=== PATIENT | female | born 1990 | race Caucasian/White ===

== ENCOUNTER 2021-10-12 16:14 | Outpatient (CLI) | payer OTHER, SELFPAY ==
--- NOTE | 2021-10-12 17:00 | CRLHL7_ITS ---
For Patients: As a result of the Century Cures Act, medical imaging exams and procedure reports are released immediately into your electronic medical record. You may view this report before your referring provider. If you have questions, please contact your health care provider. INDICATION: First trimester with spotting. TECHNIQUE: Ultrasound OB pelvis transvaginal. Real-time ibarra-scale imaging of the pelvis was performed. COMPARISON: None. FINDINGS: There is an intrauterine . An irregular gestational sac with a mean sac diameter of 2.2 cm corresponds to a 7 week 0 day gestational age and estimated date of delivery May 31, 2022. Yolk sac appears enlarged and abnormal. No fetus visualized. Large subchorionic hemorrhage is present. The ovaries are of normal size. There are no suspicious fluid collections noted in the cul-de-sac. IMPRESSION: Abnormal irregular gestational sac and enlarged abnormal yolk sac are present. No fetus visualized which should be apparent at this stage. Findings are consistent with an incomplete . There is also a relatively large subchorionic hemorrhage. Dictated by Bart De La Vega MD @ 10/12/2021 5:51:24 PM (Electronically Signed)
== END 2021-10-12 16:15 | disposition home or self-care (01) ==
LOC: US 16:18
PROVIDERS: Visit Provider Registered Nurse
DX: O20.9 Hemorrhage in early pregnancy, unspecified (principal); Z3A.01 Less than 8 weeks gestation of pregnancy
CPT/HCPCS: 76817

== ENCOUNTER 2021-10-12 18:40 | Outpatient (CLI) | payer OTHER, SELFPAY | END 2021-10-12 18:41 | disposition home or self-care (01) | LOC: NFLDREF 18:43 | PROVIDERS: Visit Provider Registered Nurse | DX: Z34.90 Encounter for supervision of normal pregnancy, unspecified, unspecified trimester (principal) | CPT/HCPCS: 84702 ==

== ENCOUNTER 2021-10-25 14:59 | Outpatient (CLI) | payer OTHER, SELFPAY ==
--- NOTE | 2021-10-25 15:00 | CRLHL7_ITS ---
For Patients: As a result of the Century Cures Act, medical imaging exams and procedure reports are released immediately into your electronic medical record. You may view this report before your referring provider. If you have questions, please contact your health care provider. INDICATION: First trimester . Abnormal ultrasound exam. TECHNIQUE: Ultrasound OB pelvis transvaginal. Real-time ibarra-scale imaging of the pelvis was performed. COMPARISON: 10/12/2021. FINDINGS: Again demonstrated is a large irregular gestational sac with a mean sac diameter of 25.7 cm which would correspond to a 7 week 4 day gestational age. No fetus visualized. There is an abnormal enlarged yolk sac. There is a persistent relatively large perigestational hemorrhage. The ovaries are of normal size. There are no suspicious fluid collections noted in the cul-de-sac. IMPRESSION: No significant changes from the prior exam. Again demonstrated is an irregular gestational sac with an abnormal enlarged yolk sac and relatively large subchorionic hemorrhage. No fetus visualized. No new abnormality. Dictated by Bart De La Vega MD @ 10/25/2021 4:45:38 PM (Electronically Signed)
== END 2021-10-25 15:00 | disposition home or self-care (01) ==
LOC: US 15:00
PROVIDERS: Visit Provider Registered Nurse
DX: Z34.91 Encounter for supervision of normal pregnancy, unspecified, first trimester (principal); Z3A.01 Less than 8 weeks gestation of pregnancy
CPT/HCPCS: 76817

== ENCOUNTER 2021-10-25 16:18 | Outpatient (CLI) | payer OTHER, SELFPAY | END 2021-10-25 16:19 | disposition home or self-care (01) | PROVIDERS: Visit Provider Physician Assistant | DX: O03.9 Complete or unspecified spontaneous abortion without complication (principal) | CPT/HCPCS: 84702 ==

== ENCOUNTER 2021-12-03 14:41 | Outpatient (CLI) | payer OTHER, SELFPAY | END 2021-12-03 14:42 | disposition home or self-care (01) | PROVIDERS: Visit Provider Registered Nurse | DX: O02.1 Missed abortion (principal) | CPT/HCPCS: 84702; 84704; 87624 ==

== ENCOUNTER 2021-12-10 08:31 | Outpatient (CLI) | payer OTHER, SELFPAY ==
[2021-12-10 14:51] LABS: HCG Quantitative* 103.04 mIU/mL
== END 2021-12-10 08:32 | disposition home or self-care (01) ==
LOC: LONREF 08:32
PROVIDERS: Visit Provider Registered Nurse
DX: O02.1 Missed abortion (principal)
CPT/HCPCS: 84702

== ENCOUNTER 2021-12-17 08:29 | Outpatient (CLI) | payer OTHER, SELFPAY ==
[2021-12-17 13:22] LABS: HCG Quantitative* 26.44 mIU/mL
== END 2021-12-17 08:30 | disposition home or self-care (01) ==
LOC: LONREF 08:30
PROVIDERS: Visit Provider Registered Nurse
DX: O02.1 Missed abortion (principal)
CPT/HCPCS: 84702

== ENCOUNTER 2022-07-05 08:13 | Outpatient (CLI) | payer OTHER, SELFPAY | END 2022-07-05 08:14 | disposition home or self-care (01) | LOC: NFLDREF 07-08 09:00 | PROVIDERS: PCP Registered Nurse; Referring Provider Registered Nurse; Visit Provider Registered Nurse | DX: Z87.59 Personal history of other complications of pregnancy, childbirth and the puerperium (principal) | CPT/HCPCS: 84702 ==

== ENCOUNTER 2022-07-07 08:15 | Outpatient (CLI) | payer OTHER, SELFPAY | END 2022-07-07 08:16 | disposition home or self-care (01) | LOC: NFLDREF 07-09 06:08 | PROVIDERS: PCP Registered Nurse; Referring Provider Registered Nurse; Visit Provider Registered Nurse | DX: Z87.59 Personal history of other complications of pregnancy, childbirth and the puerperium (principal) | CPT/HCPCS: 84702 ==

== ENCOUNTER 2022-11-01 08:01 | Outpatient (CLI) | payer OTHER, SELFPAY ==
--- NOTE | 2022-11-01 08:15 | CRLHL7_ITS ---
For Patients: As a result of the Century Cures Act, medical imaging exams and procedure reports are released immediately into your electronic medical record. You may view this report before your referring provider. If you have questions, please contact your health care provider. INDICATION: Evaluate anatomy. COMPARISON: None. TECHNIQUE: Real time ibarra scale imaging of the fetus was performed. FINDINGS: Sonographic imaging demonstrates a single living intrauterine gestation. Fetus demonstrates a regular cardiac rate of 154 beats per minute. Fetus has a breech orientation and longitudinal lie. The placenta lies anteriorly and posteriorly without evidence of placenta previa. Amniotic fluid volume appears normal. Single deepest vertical pocket: 5.8 cm. The cervix is closed and measures 5.4 cm in length. The composite ultrasound gestational age is calculated at 21 weeks 6 days with an estimated sonographic due date of March 08, 2023. The estimated weight is 491 grams which lies at the 97th percentile. The following biometric measurements were obtained: Biparietal diameter: 5.1 cm/21 weeks 4 days 71% Head circumference: 19 weeks 5 days cm/21 weeks 5 days 72% Abdominal circumference: 18.1 cm/22 weeks 6 days 93% Femur length: 3.7 cm/21 weeks 5 days 67% The HC/AC ratio measures: 1.08 range (1.06-1.23) On anatomic survey, there is a normal appearance of the cerebral ventricles, cisterna magna and cerebellum. The nose, lips, and facial profile appear normal. The cervical, thoracic and lumbar spine are well visualized and appear normal. There is a normal four-chamber heart view and the left and right ventricular outflow tracts appear normal. diaphragm, stomach, kidneys and bladder appear normal. There is a normal three-vessel cord. Questionable of velamentous cord insertion site. The four extremities appear normal. IMPRESSION: Normal OB ultrasound exam with concordance of clinical and sonographic dating. No intrinsic abnormalities noted on anatomic survey. Question velamentous cord insertion site. Dictated by Puneet Akins MD @ 11/02/2022 9:59:50 PM (Electronically Signed)
== END 2022-11-01 08:02 | disposition home or self-care (01) ==
LOC: US 08:02
PROVIDERS: Visit Provider Obstetrics & Gynecology
DX: Z34.92 Encounter for supervision of normal pregnancy, unspecified, second trimester (principal); Z3A.21 21 weeks gestation of pregnancy
CPT/HCPCS: 76805

== ENCOUNTER 2022-12-19 09:02 | Outpatient (CLI) | payer OTHER, SELFPAY ==
--- NOTE | 2022-12-19 09:15 | CRLHL7_ITS ---
For Patients: As a result of the Century Cures Act, medical imaging exams and procedure reports are released immediately into your electronic medical record. You may view this report before your referring provider. If you have questions, please contact your health care provider. INDICATION: Third trimester scan, evaluate growth. COMPARISON: 11/01/2022 TECHNIQUE: Real time ibarra scale imaging of the fetus was performed . FINDINGS: Sonographic imaging demonstrates a single living intrauterine gestation. Fetus demonstrates a regular cardiac rate of 179 beats per minute. Fetus has a transverse position, head maternal right. Cervix is closed measuring 4.3 cm. Placenta is posterior. The edge of the posterior placenta is located 3.3 cm from the internal cervical os. Umbilical cord insertion is normal into the central posterior placenta. An anterior accessory placental lobe is noted. Amniotic fluid volume appears normal and there is a single deepest vertical pocket: 4.2 cm. The estimated weight is 1402gm which lies at the 92nd %. On the prior OB ultrasound exam dated 11/01/2022 the estimated weight was at the 97th%. The HC/AC ratio measures 1.00 range (0.99-1.20). BPD 89th percentile. HC 47th percentile. AC 97th percentile. FL 45th percentile. IMPRESSION: Sonographic gestational age 29 weeks 2 days and sonographic due date 03/04/2023. Sonographic age 9 days ahead of the clinical age. Estimated weight 92nd percentile. Abdominal circumference 97th percentile. Posterior placenta without previa. Normal cord insertion into the posterior placenta. Anterior accessory placental lobe. Dictated by Darin Flynn MD @ 12/19/2022 10:47:16 AM (Electronically Signed)
== END 2022-12-19 09:03 | disposition home or self-care (01) ==
LOC: US 09:03
PROVIDERS: Visit Provider Obstetrics & Gynecology
DX: Z34.93 Encounter for supervision of normal pregnancy, unspecified, third trimester (principal); Z3A.29 29 weeks gestation of pregnancy
CPT/HCPCS: 76816; 76817; 86592

== ENCOUNTER 2023-02-14 08:17 | Outpatient (CLI) | payer OTHER, SELFPAY ==
--- NOTE | 2023-02-14 08:15 | CRLHL7_ITS ---
For Patients: As a result of the Century Cures Act, medical imaging exams and procedure reports are released immediately into your electronic medical record. You may view this report before your referring provider. If you have questions, please contact your health care provider. INDICATION: Third trimester scan, evaluate growth. COMPARISON: 12/19/2022 TECHNIQUE: Real time ibarra scale imaging of the fetus was performed. FINDINGS: Sonographic imaging demonstrates a single living intrauterine gestation. Fetus demonstrates a regular cardiac rate of 144 beats per minute. Fetus has a vertex position. The placenta lies anterior/posterior without evidence of placenta previa. Amniotic fluid volume appears normal and there is a single deepest vertical pocket: 7.6 cm. The estimated weight is 3505gm which lies at the greater than 97th %. On the prior OB ultrasound exam dated 12/19/2022 the estimated weight was at the 92nd%. BPD 43rd percentile. HC 34th percentile. AC greater than 97th percentile. FL 40th percentile. The HC/AC ratio measures 0.88 range (0.92-1.05). IMPRESSION: Sonographic gestational age 37 weeks 1 day and sonographic due date 03/06/2023. Sonographic age 8 days ahead of the clinical age. Estimated weight greater than 97th percentile. Abdominal circumference greater than 97th percentile. Dictated by Darin Flynn MD @ 02/16/2023 11:17:02 AM (Electronically Signed)
== END 2023-02-14 08:18 | disposition home or self-care (01) ==
LOC: US 08:17
PROVIDERS: Visit Provider Obstetrics & Gynecology
DX: O36.63X0 Maternal care for excessive fetal growth, third trimester, not applicable or unspecified (principal); Z3A.37 37 weeks gestation of pregnancy
CPT/HCPCS: 76816; 87081; 87653

== ENCOUNTER 2023-03-09 15:57 | Inpatient (IN) | payer OTHER, SELFPAY ==
[2023-03-09 16:06] VITALS: PULSE 85; O2SAT 98
[2023-03-09 16:07] VITALS: BP 128/86; PULSE 83
[2023-03-09 16:22] VITALS: BMI 30.9
--- NOTE | 2023-03-09 17:08 | P.LDBA_ITS ---
Subjective History of Present Illness Time Seen by Provider: 17:00 Narrative: HPI: Jackie is a 33-year-old 6 para 1041 who is being admitted for induction of labor for presumed macrosomia. She has had an uncomplicated . growth measurements on 02/14/2023 are listed below. Specific Issues/Plans G 6 P 1041 : Servando: this will be his 1st child. H&P 02/21 Dr. Villatoro Desires genetic screening. Considering 1st trimester screen: Normal, female!!! 1. History of miscarriage x 3 (2 of which were in 2021). No testing for cause. 2. Will need Pap smear. 3. Suspected macrosomia at 28 weeks: EFW 92%, AC 97%. * Repeat US at 36 weeks: 02/14/23, EFW 3505 g or 7# 12oz (>97%), SDP 7.6 cm, BDP 43%, HC 34%, AC >97%, FL 40%. * Consider induction of labor at 39-40 weeks gestation 4. anatomy ultrasound with possible velamentous cord insertion -growth ultrasound at 28 weeks: normal cord insertion but anterior accessory lobe 5. Small umbilical hernia COVID: Not vaccinated. Recommended. Declined. TDAP: 01/06/23 Flu: Declined. RSV: 01/16/23 OB - Problem Based A/P Additional Plan (1) macrosomia during : Status: Acute Plan 1. Admit for cervical ripening followed by induction of labor. 2. Cook catheter placed with 60 mL in both balloons. 3. Low-dose Pitocin at 3:00 a.m. on 03/10/2023. 4. Dr. Unique Villatoro will assume care at 7:00 a.m. on 03/10/2023 OB Exam Physical Exam Vital signs: Pulse BP Pulse Ox 83 128/86 98 03/09/23 16:07 03/09/23 16:07 03/09/23 16:06 Narrative: GENERAL APPEARANCE: Pleasant, , well-groomed woman in no acute distress. VITAL SIGNS: as noted in nursing notes HEAD: Normocephalic, atraumatic. THYROID: no masses, nodularity, tenderness or enlargement. LUNGS: Clear to auscultation bilaterally without wheezes, rales or rhonchi. HEART: Regular rate and rhythm with normal S1 and S2. No gallop, rub or murmur. ABDOMEN: Gravid. Soft, nontender, nondistended, with normal bowels sounds throughout. EFM: Baseline 130s. Moderate variability. Multiple accelerations. No decelerations. Reactive. Category 1. TOCO: Rare contractions. PRESENTATION: Vertex by Lucho's maneuvers and sterile vaginal exam. SVE: 1.5 cm/ 70 %/ -2/soft/posterior. Boyce score: 6 EXTREMITIES: No cyanosis, clubbing, or edema. No varicosities. NEUROLOGIC: Normal gait and balance. Normal deep tendon reflexes at bilateral patella 2+/2, equal without clonus. PSYCHIATRIC: alert and oriented x3. Normal speech pattern, eye contact and affect. SKIN: Warm, dry, and well perfused. Good turgor. No lesions, nodules or rashes. Cook catheter was placed with 60 mL of saline in both balloons. The patient tolerated this procedure well.
[2023-03-09] MEDS: hydrOXYzine pamoate 25 MG CAPSULE 100 MG PO (18:23)
[2023-03-09] MEDS: MORPHINE 10 MG/ML inj IM (18:23)
[2023-03-09 19:12] LABS: Basophils Absolute Auto 0.02 K/uL (0.00-0.30); Basophils Percent Auto 0.2 % (0.0-3.0); Eosinophils Absolute Auto 0.04 K/uL (0.00-0.50); Eosinophils Percent Auto 0.5 % (0.0-7.0); Hematocrit 33.4 % (33.0-51.0); Hemoglobin* 11.3 gm/dL (12.0-16.0); Immature Granulocytes Abs Auto 0.02 K/uL (0.00-0.30); Immature Granulocytes Pct Auto 0.2 %; Lymphocytes Percent Auto 15.8 % (20-44); Mean Corpuscular HGB Conc 34 gm/dL (32-36); Mean Corpuscular Hemoglobin 30 pg (26-34); Mean Corpuscular Volume 88 fL (80-100); Monocytes Percent Auto 7.9 % (0.0-11.0); Neutrophils Percent Auto 75.4 % (42.0-72.0); Platelet Count* 218 K/uL (140-440); RDW Coefficient of Variation % 13.1 % (11.5-15.5)
[2023-03-09 19:15] LABS: Slide Review Reflex No
[2023-03-09 20:14] VITALS: BP 137/78; PULSE 73
[2023-03-09 20:15] VITALS: RESP 16; TEMP 36.5
[2023-03-09 20:17] VITALS: BP 140/83; PULSE 69
[2023-03-09 23:36] VITALS: BP 135/74; PULSE 73; RESP 16; TEMP 37
[2023-03-10] VITALS (85 sets, daily range): BP systolic 104–151; BP diastolic 55–84; PULSE 64–128; RESP 16–20; TEMP 36.7–37.8; O2SAT 94–100
[2023-03-10] MEDS: LACTATED RINGERS 1000 ML 1,000 ML 125 ML IV ×2 (02:57→14:10)
[2023-03-10] MEDS: OXYTOCIN 30 unit/500 ML in NS 30 UNIT/500 ML BAG IVPB (03:02)
--- NOTE | 2023-03-10 07:40 | PM.OBPNL ---
Subjective Date Seen: 03/03/23 Narrative: Jackie is a 33-year-old I3X0-3-8-5 woman currently at 39 weeks, 3 days gestation here for elective induction of labor with suspected macrosomia noted on ultrasounds. Ob problem list: 1. History of miscarriage x 3 (2 of which were in 2021). No testing for cause. 2. Will need Pap smear. 3. Suspected macrosomia at 28 weeks: EFW 92%, AC 97%. Repeat US at 36 weeks: 02/14/23, EFW 3505 g or 7# 12oz (>97%), SDP 7.6 cm, BDP 43%, HC 34%, AC >97%, FL 40%. Consider induction of labor at 39-40 weeks gestation4. anatomy ultrasound with possible velamentous cord insertion -growth ultrasound at 28 weeks: normal cord insertion but anterior accessory lobe 5. Small umbilical hernia Thus far, she had placement of Cook catheter for cervical ripening overnight, followed by Pitocin for induction of labor. Her most recent cervical exam at 6:00 a.m. was 4 cm, 70%, -2 station. The contractions was worse prior to removal of the Cook catheter. At this point, she has just eaten breakfast, and is relatively comfortable. Objective Exam: General: Pleasant, no acute distress Vital Signs: Last Vital Signs Temp 98.7 F 03/10/23 04:56 Pulse 70 03/10/23 07:20 Resp 16 03/10/23 04:56 BP 129/76 03/10/23 07:20 Pulse Ox 98 03/09/23 16:06 blood pressure is currently 144/82 Contractions Monitor mode: External Contraction pattern: Irregular Pitocin Rate (mU/min): 7 Assessment Assessment: induction ongoing Status: Category l Heart Rate Baseline: 140 Screenplay Writer Variability: Moderate (6-25) Monitor Accelerations: Present Monitor Decelerations: None Tracing Comments: Category 1, as above Labor Progress: In latent labor according to last cervical exam. Maternal Status: Mild hypertension newly noted Plan Plan: Continues monitoring. Continue Pitocin induction of labor. She plans to do some walking, and contact me when she is ready to try rupture of membranes. HELLP labs will be collected given her newly elevated blood pressures.
[2023-03-10 08:34] LABS: Hematocrit 36.3 % (33.0-51.0); Hemoglobin* 12.2 gm/dL (12.0-16.0); Mean Corpuscular HGB Conc 34 gm/dL (32-36); Mean Corpuscular Hemoglobin 30 pg (26-34); Mean Corpuscular Volume 89 fL (80-100); Platelet Count* 205 K/uL (140-440); Red Blood Count 4.07 m/uL (4.00-5.20); White Blood Count* 8.67 K/uL (4.50-11.00)
[2023-03-10 08:35] LABS: Slide Review Reflex No
[2023-03-10 08:46] LABS: Aspartate Amino Transferase* 25 U/L (12-35); Creatinine* 0.5 mg/dL (0.5-1.5); Est. Creatinine Clearance* 138.19; Estimated Glomerular Filt Rate 127 ml/min
[2023-03-10 08:47] LABS: Alanine Aminotransferase* 20 U/L (4-35); Blood Urea Nitrogen* 9 mg/dL (5-24)
[2023-03-10 08:55] LABS: Total Protein Urine 8 mg/dL
[2023-03-10 08:56] LABS: Creatinine Urine 43.1 mg/dL
[2023-03-10] MEDS: LACTATED RINGERS 1000 ML 1,000 ML 1200 ML IV (09:19)
[2023-03-10] MEDS: LIDOCAINE 2% (PF) 5 ML VIAL EPIDURAL (09:33)
[2023-03-10] MEDS: ROPIVACAINE 0.2% 100 ml 100 ML 12 MG EPIDURAL ×2 (09:53→17:10)
--- NOTE | 2023-03-10 09:58 | PM.ANBPRC ---
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) Missed ?O02.1 - Missed (ICD-10) Incomplete miscarriage (11/17/21) ?O03.4 - Incomplete spontaneous without complication (ICD-10) Incomplete spontaneous ?O03.4 - Incomplete spontaneous without complication (ICD-10) History of abnormal cervical Pap smear ?Z87.42 - Personal history of other diseases of the female genital tract (ICD-10) ?O03.9 - Complete or unspecified spontaneous without complication (ICD-10) Chlamydia ?A74.9 - Chlamydial infection, unspecified (ICD-10) Surgical History H/O dilation and curettage ?Z98.890 - Other specified postprocedural states (ICD-10) Family History Family/Other Thyroid cancer Mother High blood pressure Father Depression Social History (Updated 02/21/23 @ 09:14 by Unique Villatoro MD) Narrative: Lives in [place] with and 11 yo son. 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 No tob / ETOH / recreational drug use. What is your current living situation?: I presently have a place to live Problems where you live: no known problems In the past 12 months, utilities in danger of being shut off: no In past 12 months, lack of transportation kept you from medical appts, meetings, work, or getting things needed for daily living: no In the past 12 mos, have been you worried that your food would run out before you had money to buy more?: never true In the past 12 mos, the food you bought just didn't last and you didn't have money to buy more?: never true Smoking Status: Never smoker How often does anyone, including family, friends and others, physically hurt you: never How often does anyone, including family, friends and others, insult or talk down to you: never How often does anyone, including family, friends and others, threaten you with harm: never How often does anyone, including family, friends and others, scream or curse at you: never Little interest or pleasure in doing things: not at all Feeling down, depressed, or hopeless: not at all Meds Home Medications and Allergies Home Medications Medication Instructions Recorded Confirmed Type docosahexaenoic acid 200 mg mg PO 08/03/22 03/08/23 History capsule ( DHA) Allergies Allergy/AdvReac Type Severity Reaction Status Date / Time Penicillin Allergy Unknown Uncoded 03/08/23 08:14 Results Labs Labs: Laboratory Results - last 24 hr 03/09/23 03/10/23 03/10/23 18:50 08:15 08:24 WBC 8.10 8.67 RBC 3.80 L 4.07 Hgb 11.3 L 12.2 Hct 33.4 36.3 MCV 88 89 MCH 30 30 MCHC 34 34 RDW Coeff of Josh 13.1 Plt Count 218 205 Neut % (Auto) 75.4 H Lymph % (Auto) 15.8 L [place] % (Auto) 7.9 Eos % (Auto) 0.5 Baso % (Auto) 0.2 Neut # (Auto) 6.10 Lymph # (Auto) 1.30 [place] # (Auto) 0.60 Eos # (Auto) 0.04 Baso # (Auto) 0.02 Abs Immat Gran (auto) 0.02 Imm/Tot Granulo (auto) 0.2 BUN 9 Creatinine 0.5 Estimated Creat Clear 138.19 Estimated GFR 127 AST 25 ALT 20 Urine Creatinine 43.1 Protein/Creatinin Ratio 0.10 Urine Total Protein 8 Blood Type O Positive Antibody Screen NEGATIVE Vital Signs Vital Signs: Last Vital Signs Temp 98.1 F 03/10/23 07:20 Pulse 77 03/10/23 09:57 Resp 16 03/10/23 04:56 BP 127/62 03/10/23 09:57 Pulse Ox 98 03/10/23 09:54 Weight: 81.76 kg Height: 162.56 cm Anesthesia Procedures Epidural Insertion Patient Location: OB Start Time: 09:35 Stop Time: 10:05 Start Date: 03/10/23 Stop Date: 03/10/23 Reason for Block: procedure for pain Patient Position: sitting Performed By: Dipak Rangel Preanesthetic Checklist: IV checked, risks and benefits discussed, monitors and equipment checked, pre-op evaluation, timeout performed and anesthesia consent Prep: chlorhexidine gluconate Monitoring: blood pressure monitoring, continuous pulse oximetry and heart rate Approach: midline Vertebral Space: lumbar (1-5) Epidural Technique: RJ saline Needle Type: Tuohy needle Injection Technique: continuous catheter Needle gauge: 17 Needle Length (cm): 10 cm Needle Insertion Depth (cm): 6 Catheter Gauge: 19 Catheter Type: multi-orifice Catheter at skin depth (cm): 12 Test Dose Result: negative and lidocaine 1.5% with epinephrine 1 to 200,000
--- NOTE | 2023-03-10 11:57 | P.OBPN_ITS ---
Subjective Time Seen by Provider: 10:45 Date Seen: 03/10/23 Narrative: Jackie is a 33-year-old U4H9-1-8-2 woman currently at 39 weeks, 3 days gestation here for elective induction of labor with suspected macrosomia noted on ultrasounds. Ob problem list: 1. History of miscarriage x 3 (2 of which were in 2021). No testing for cause. 2. Will need Pap smear. 3. Suspected macrosomia at 28 weeks: EFW 92%, AC 97%. * Repeat US at 36 weeks: 02/14/23, EFW 3505 g or 7# 12oz (>97%), SDP 7.6 cm, BDP 43%, HC 34%, AC >97%, FL 40%. * Consider induction of labor at 39-40 weeks gestation4. anatomy ultrasound with possible velamentous cord insertion -growth ultrasound at 28 weeks: normal cord insertion but anterior accessory lobe 5. Small umbilical hernia Thus far, she had placement of Cook catheter for cervical ripening overnight, followed by Pitocin for induction of labor. Since my last visit, she has had epidural. She is comfortable. Objective Exam: General: Pleasant, no acute distress Vital Signs: Last Vital Signs Temp 98.7 F 03/10/23 11:05 Pulse 65 03/10/23 11:51 Resp 16 03/10/23 11:05 BP 118/76 03/10/23 11:51 Pulse Ox 98 03/10/23 09:54 Pelvic Exam Dilation (cm): 6 Effacement (%): 90 Station: -2 Comments: posterior and soft AROM for clear fluid Contractions Monitor mode: External Contraction Frequency: Q3 min Contraction pattern: Regular Pitocin Rate (mU/min): 7 Assessment Assessment: induction ongoing Amniotic Membrane Status: AROM Status: Category l Heart Rate Baseline: 140 Trawl Net Maker Variability: Moderate (6-25) Monitor Accelerations: Present Monitor Decelerations: None Tracing Comments: Category 1, as above Labor Progress: Entering active labor. Her cervix is very stretchy, but baby has yet to descend. Maternal Status: Mild hypertension prior to epidural. Normal HELLP labs. Plan Plan: Continues monitoring. Continue Pitocin induction of labor. Anticipate .
--- NOTE | 2023-03-10 17:59 | W.PM.VAGDEL1 ---
Procedure Delivery date: 03/10/23 Procedure Done: Global Procedure Details: The patient is a 33 year-old G 6 P 1-0-4-1 woman admitted on 03/09/2023 at 39 Weeks, 2 Days gestation for elective induction of labor in the setting of suspected macrosomia.? Cervical exam on admission was 1.5 cm, 70%,-2 station, soft, and posterior, for a Boyce score of 6. Membranes were intact and fetus in vertex presentation.? heart rate demonstrated baseline 130 bpm with moderate variability, positive accelerations, no decelerations; a category 1 tracing.? She had placement of Cook catheter for cervical ripening, followed by Pitocin for induction of labor. AROM occurred at 10:45 a.m. on 03/10 with clear fluid. ? Labor Analgesia:? Epidural ? Pitocin:? Yes ? Labor onset:? 10:44 a.m. on 03/10/2023 ? Complete:? 5:13 p.m. ? Pushing:? 5:14 p.m. ? heart tones during second stage were reassuring. ? At 5:38 p.m. a viable female infant delivered in vertex OA presentation over intact perineum via spontaneous vaginal delivery.? Infant was placed on maternal abdomen.? Cord was clamped and cut after a 30-60 second delay.? Nose and mouth were bulb suctioned.? weight pending.? 9 at 1 minute and 9 at 5 minutes.? Shoulder dystocia: No.? Nuchal cord: No ? Placenta delivered spontaneously and complete at 5:46 p.m. the cord was nearly torn from the membranes at the time of placental delivery; this was because the cord inserted into the membranes. Large vessels ran through the membranes in to a bilobed placenta. ? Mother and infant were stable after delivery. ? Lacerations:? None ? Blood loss: 100 mL. Blood loss measurement type: QBL ? Sponge and needles counts are correct. Intrapartal Events: Labor Augmentation and Labor Induction Delivery augmentation: rupture of membranes Delivery monitor: external FHT and internal uterine Route of delivery: Laceration description: None Estimated blood loss (mL): 100 Anesthesia type: Epidural Gender: Female presentation: vertex Placental Delivery Description: Spontaneous
[2023-03-10] MEDS: ACETAMINOPHEN 500 MG TABLET 1000 MG PO (21:03)
[2023-03-11] MEDS: IBUPROFEN 600 MG TABLET PO ×3 (01:12→13:17)
[2023-03-11 01:13] VITALS: BP 134/71; PULSE 64; RESP 17; O2SAT 97
[2023-03-11 04:01] VITALS: BP 128/79; PULSE 68; RESP 15; TEMP 36.7; O2SAT 97
[2023-03-11 05:38] LABS: Hemoglobin* 10.4 gm/dL (12.0-16.0)
[2023-03-11 09:00] VITALS: BP 127/85; PULSE 66; RESP 16; TEMP 36.7; O2SAT 97
--- NOTE | 2023-03-11 09:54 | P.DS_ITS ---
DS: Providers Provider Time Seen by Provider: 09:55 Date Seen: 03/11/23 Date of admission: 03/09/23 15:57 Primary care physician: Not a Local Provider Admitting Clinician: Unique Villatoro MD Attending Physician on discharge: Unique Villatoro MD Date of Discharge: 03/11/23 DS: Diagnosis Discharge Diagnosis (1) (normal spontaneous vaginal delivery): Status: Acute Exam Narrative: Exam Narrative: GENERAL APPEARANCE: Pleasant, , well-groomed woman in no acute distres s. VITAL SIGNS: as noted in nursing notes HEAD: Normocephalic, atraumatic. THYROID: no masses, nodularity, tenderness or enlargement. LUNGS: Clear to auscultation bilaterally without wheezes, rales or rhonchi. HEART: Regular rate and rhythm with normal S1 and S2. No gallop, rub or murmur. ABDOMEN: Fundus firm at 2 cm below the umbilicus in the midline. The patient has an umbilical hernia. Soft, nontender, nondistended, with normal bowels sounds throughout. EXTREMITIES: No cyanosis, clubbing, or edema. No varicosities. NEUROLOGIC: Normal gait and balance. Normal deep tendon reflexes at bilateral patella 2+/2, equal without clonus. PSYCHIATRIC: alert and oriented x3. Normal speech pattern, eye contact and affect. SKIN: Warm, dry, and well perfused. Good turgor. No lesions, nodules or rashes. Const: Vital Signs, click to edit/add: Vital Signs - 24 hr 03/10/23 09:55 03/10/23 09:57 03/10/23 09:59 Temperature Pulse Rate 88 77 71 Pulse Rate [Pulse Oximeter] Respiratory Rate Blood Pressure 137/69 127/62 112/59 L Blood Pressure [Ri ght Arm] Pulse Oximetry Oxygen Delivery Me thod 03/10/23 10:01 03/10/23 10:07 03/10/23 10:11 Temperature Pulse Rate 75 73 73 Pulse Rate [Pulse Oximeter] Respiratory Rate Blood Pressure 115/58 L 122/58 L 117/57 L Blood Pressure [Ri ght Arm] Pulse Oximetry Oxygen Delivery Me thod 03/10/23 10:16 03/10/23 10:22 03/10/23 10:27 Temperature Pulse Rate 75 75 69 Pulse Rate [Pulse Oximeter] Respiratory Rate Blood Pressure 122/64 129/65 124/65 Blood Pressure [Ri ght Arm] Pulse Oximetry Oxygen Delivery Me thod 03/10/23 10:32 03/10/23 10:36 03/10/23 10:42 Temperature Pulse Rate 66 68 67 Pulse Rate [Pulse Oximeter] Respiratory Rate Blood Pressure 128/67 116/65 122/63 Blood Pressure [Ri ght Arm] Pulse Oximetry Oxygen Delivery Me thod 03/10/23 10:48 03/10/23 11:05 03/10/23 11:05 Temperature 98.7 F Pulse Rate 71 66 Pulse Rate [Pulse Oximeter] Respiratory Rate 16 Blood Pressure 116/61 104/58 L Blood Pressure [Ri ght Arm] Pulse Oximetry Oxygen Delivery Me thod 03/10/23 11:21 03/10/23 11:36 03/10/23 11:51 Temperature Pulse Rate 67 66 65 Pulse Rate [Pulse Oximeter] Respiratory Rate Blood Pressure 106/55 L 114/71 118/76 Blood Pressure [Ri ght Arm] Pulse Oximetry Oxygen Delivery Me thod 03/10/23 11:51 03/10/23 12:06 03/10/23 12:21 Temperature 98.5 F Pulse Rate 64 65 Pulse Rate [Pulse Oximeter] Respiratory Rate 16 Blood Pressure 127/76 132/77 Blood Pressure [Ri ght Arm] Pulse Oximetry Oxygen Delivery Me thod 03/10/23 12:36 03/10/23 12:50 03/10/23 12:50 Temperature 98.7 F Pulse Rate 66 68 Pulse Rate [Pulse Oximeter] Respiratory Rate 18 Blood Pressure 131/78 127/77 Blood Pressure [Ri ght Arm] Pulse Oximetry Oxygen Delivery Me thod 03/10/23 13:07 03/10/23 13:20 03/10/23 13:36 Temperature Pulse Rate 65 64 68 Pulse Rate [Pulse Oximeter] Respiratory Rate Blood Pressure 117/62 107/61 123/68 Blood Pressure [Ri ght Arm] Pulse Oximetry Oxygen Delivery Me thod 03/10/23 13:51 03/10/23 13:51 03/10/23 14:05 Temperature 98.7 F Pulse Rate 67 64 Pulse Rate [Pulse Oximeter] Respiratory Rate Blood Pressure 122/73 123/73 Blood Pressure [Ri ght Arm] Pulse Oximetry Oxygen Delivery Me thod 03/10/23 14:20 03/10/23 14:35 03/10/23 14:50 Temperature Pulse Rate 66 68 68 Pulse Rate [Pulse Oximeter] Respiratory Rate Blood Pressure 124/78 129/81 130/81 Blood Pressure [Ri ght Arm] Pulse Oximetry Oxygen Delivery Me thod 03/10/23 14:50 03/10/23 15:05 03/10/23 15:21 Temperature 98.8 F Pulse Rate 66 66 Pulse Rate [Pulse Oximeter] Respiratory Rate 16 Blood Pressure 125/77 127/68 Blood Pressure [Ri ght Arm] Pulse Oximetry Oxygen Delivery Me thod 03/10/23 15:35 03/10/23 15:45 03/10/23 15:51 Temperature 98.9 F Pulse Rate 75 67 Pulse Rate [Pulse Oximeter] Respiratory Rate Blood Pressure 122/70 131/75 Blood Pressure [Ri ght Arm] Pulse Oximetry Oxygen Delivery Me thod 03/10/23 16:09 03/10/23 16:21 03/10/23 16:36 Temperature Pulse Rate 75 73 78 Pulse Rate [Pulse Oximeter] Respiratory Rate Blood Pressure 126/70 129/68 126/68 Blood Pressure [Ri ght Arm] Pulse Oximetry Oxygen Delivery Me thod 03/10/23 16:52 03/10/23 16:52 03/10/23 17:06 Temperature 98.9 F Pulse Rate 75 83 Pulse Rate [Pulse Oximeter] Respiratory Rate 20 Blood Pressure 122/64 123/63 Blood Pressure [Ri ght Arm] Pulse Oximetry Oxygen Delivery Me thod 03/10/23 17:21 03/10/23 17:26 03/10/23 17:28 Temperature Pulse Rate Pulse Rate [Pulse Oximeter] Respiratory Rate Blood Pressure Blood Pressure [Ri ght Arm] Pulse Oximetry 99 98 94 Oxygen Delivery Me thod 03/10/23 17:31 03/10/23 17:36 03/10/23 17:41 Temperature Pulse Rate Pulse Rate [Pulse Oximeter] Respiratory Rate Blood Pressure Blood Pressure [Ri ght Arm] Pulse Oximetry 99 100 99 Oxygen Delivery Me thod 03/10/23 17:46 03/10/23 17:50 03/10/23 17:50 Temperature 99.7 F H Pulse Rate 82 Pulse Rate [Pulse Oximeter] Respiratory Rate 18 Blood Pressure 133/73 Blood Pressure [Ri ght Arm] Pulse Oximetry 98 Oxygen Delivery Me thod 03/10/23 17:50 03/10/23 17:51 03/10/23 18:05 Temperature 99.7 F H Pulse Rate Pulse Rate [Pulse Oximeter] 83 Respiratory Rate 18 18 Blood Pressure Blood Pressure [Ri ght Arm] 133/73 106/75 Pulse Oximetry 97 Oxygen Delivery Me thod 03/10/23 18:07 03/10/23 18:20 03/10/23 18:21 Temperature Pulse Rate 83 75 Pulse Rate [Pulse Oximeter] 76 Respiratory Rate 16 Blood Pressure 106/75 151/73 H Blood Pressure [Ri ght Arm] 129/68 Pulse Oximetry Oxygen Delivery Me thod 03/10/23 18:21 03/10/23 18:21 03/10/23 18:35 Temperature Pulse Rate 76 Pulse Rate [Pulse Oximeter] 68 Respiratory Rate 18 Blood Pressure 129/68 Blood Pressure [Ri ght Arm] 141/76 H Pulse Oximetry Oxygen Delivery Me thod 03/10/23 18:39 03/10/23 18:50 03/10/23 18:50 Temperature Pulse Rate 68 69 Pulse Rate [Pulse Oximeter] 69 Respiratory Rate 16 Blood Pressure 141/76 H 142/78 H Blood Pressure [Ri ght Arm] 142/78 H Pulse Oximetry Oxygen Delivery Me thod 03/10/23 19:05 03/10/23 19:05 03/10/23 19:20 Temperature Pulse Rate 69 77 Pulse Rate [Pulse Oximeter] 69 Respiratory Rate 18 Blood Pressure 135/80 139/83 Blood Pressure [Ri ght Arm] 135/80 Pulse Oximetry Oxygen Delivery Me thod 03/10/23 19:30 03/10/23 19:35 03/10/23 19:43 Temperature 100.1 F H 99.6 F Pulse Rate 68 Pulse Rate [Pulse Oximeter] 65 65 Respiratory Rate 16 16 Blood Pressure 127/76 Blood Pressure [Ri ght Arm] 139/83 127/76 Pulse Oximetry 95 95 Oxygen Delivery Me thod 03/11/23 01:13 03/11/23 04:01 03/11/23 09:00 Temperature 98.0 F 98.0 F Pulse Rate Pulse Rate [Pulse Oximeter] 64 68 66 Respiratory Rate 17 15 16 Blood Pressure Blood Pressure [Ri ght Arm] 134/71 128/79 127/85 Pulse Oximetry 97 97 97 Oxygen Delivery Me thod Room Air Room Air Room Air OB - DS: Summary Hospital Course Hospital Course: The patient is a 33 year old G 6 P 1041 at 39 weeks 2 days gestation that was admitted to the [facility] on 03/09/23 for an elective induction of labor due to suspected macrosomia. She had an uncomplicated vaginal delivery. She delivered a viable female . She is breast feeding. the patient has done well. Infant Gender: Female Status at Discharge Functional status at discharge: independent ambulation Time Spent with Patient Time attestation: Total time spent providing and/or coordinating discharge services: Time spent: Less than 30 minutes Discharge Plan Discharge Disposition: Home, Self-Care Date of Admission: 03/09/23 15:57 Attending Provider on Discharge: Shadia Dwyer Primary Care Provider: Provider,Not a Local Condition: Stable Anticipated Discharge Date/Time: 03/11/23 19:30 Discharge Medications: New docusate sodium 100 mg Capsule 100 mg PO BID PRN (Reason: constipation) Qty: 100 0RF ibuprofen 600 mg Tablet 600 mg PO Q6H PRNQty: 30 0RF Continued DHA 200 mg capsule 200 mg PO DAILY Discharge Orders: Discharge Order (Routine); Ordered 03/11/23 Ordered By: Shadia Dwyer Patient Education: Bleeding (DC), Vaginal Delivery (DC) Additional Instructions: ACTIVITY RESTRICTIONS: * Nothing vaginally for 6 weeks: no tampons/intercourse * Off of work/school for a minimum of 6 weeks Symptoms to report to doctor: -Bleeding that saturates more than one pad per hour ?-Passing clots larger than the size of a golf ball ?-Pain not relieved by prescribed medication ?-Fever above 100.4 degrees Fahrenheit ?-A foul vaginal odor ?-Difficulty in emotions, mood and functions ?-Thoughts of hurting yourself and/or ?-Painful, reddened area in your breast ?-Any drainage, redness or tenderness in your IV/epidural site ?-Severe headache that doesn't improve after taking medications ?-Changes in vision, including temporary loss of vision, blurred vision, and/or light sensitivity ?-Upper abdominal pain (usually under ribs on the right side) ?-Decrease in urination or painful, frequent urinating ?-Chest pain ?-Shortness of breath ?-Tenderness or pain with redness and/swelling in the calf(s) of your leg Follow-up: 1. [facility] in 1 week for a blood pressure check. 2. A 6 week visit for an annual physical exam. consultation services are available to all mothers and babies for the first year after delivery.? To make an appointment, please call [phone]. Follow Up Appointments: [facility] [Provider Group] Provider,Not a Local [Primary Care Provider] - Forms: MyHealth Info Instructions
[2023-03-11] MEDS: DOCUSATE SODIUM 100 MG CAPSULE PO (09:58)
[2023-03-11] MEDS: ACETAMINOPHEN 500 MG TABLET 1000 MG PO ×2 (09:59→16:13)
[2023-03-11 12:45] VITALS: BP 133/82; PULSE 63; RESP 16; O2SAT 97
[2023-03-11 16:00] VITALS: BP 126/74; PULSE 73; RESP 14; TEMP 36.6; O2SAT 97
== END 2023-03-11 19:35 | disposition home or self-care (01) | DRG 807 ==
PROVIDERS: Obstetrics & Gynecology; Admitting Provider Obstetrics & Gynecology; Visit Provider Obstetrics & Gynecology
DX: O36.63X0 Maternal care for excessive fetal growth, third trimester, not applicable or unspecified (principal); Z37.0 Single live birth; Z3A.39 39 weeks gestation of pregnancy; O69.89X0 Labor and delivery complicated by other cord complications, not applicable or unspecified; K42.9 Umbilical hernia without obstruction or gangrene
CPT/HCPCS: 01967; 36415; 59200; 82565; 82570; 84156; 84450; 84460; 84520; 85018; 85025; 85027; 86850; 86900; 86901; 88307; A9270; C1726; J2270; J2371; J2795; J7120

== ENCOUNTER 2023-04-28 15:58 | Outpatient (CLI) | payer OTHER, SELFPAY ==
--- NOTE | 2023-04-28 16:00 | US_ITS ---
Final Report Patient: ALLIE WILLIAM Facility:?[facility] Patient ID:?[id number] Site Patient ID:?[id number]. Site :?1990 Study:?US Pelvis -04/28/2023 4:52:30 PM Ordering Physician:?Juany Myers Final Report: INDICATION: bleeding COMPARISON: none TECHNIQUE: 2D ibarra scale and color Doppler images were acquired of the pelvis using a transabdominal approach FINDINGS: Sonographic images demonstrate a normal size and smooth outer contour of the uterus. Uterus measures 9.1 cm in length by 5.0 cm in AP diameter by 4.4 cm in transverse dimension. The myometrium has a normal uniform echotexture. The endometrial lining appears normal and measures 4 mm in composite thickness. IUD is present within the endometrial canal. The right ovary measures 3.8 x 2.8 x 2.1 cm in size and the left ovary measures 2.8 x 2.0 x 1.6 cm. The ovaries demonstrate normal arterial and venous blood flow on color Doppler analysis. There are no suspicious fluid collections within the cul-de-sac. IMPRESSION: IUD is present in good position within the endometrial canal. Endometrial stripe appears normal. Dictated by Darin Flynn MD @ 04/30/2023 4:54:19 PM (Electronic Signature)
== END 2023-04-28 15:59 | disposition home or self-care (01) ==
LOC: US 15:59
PROVIDERS: PCP Family Medicine; Visit Provider Registered Nurse
DX: O72.1 Other immediate postpartum hemorrhage (principal)
CPT/HCPCS: 76830; 76856

== ENCOUNTER 2024-01-10 09:20 | Outpatient (CLI) | payer OTHER, SELFPAY ==
--- OUTSIDE RECORDS SUMMARY | 2024-01-10 15:42 | XMS_ITS | Clinical Summary ---
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 Plan 1 yr co-test 06/08/20 Pt notified 05/18/2021 Reminder MyChart- read 06/15/2021 Reminder call - spoke to pt, moved to [place] and seeing a provider in a different [facility]. She states she will be going to them for her pap and routine care now. IUD (intrauterine device) in place 07/27/2018 Immunizations Name Administration Dates Next Due HepB 03/16/2001,09/12/2000 Hepatitis B, Peds 03/16/2001,09/12/2000 Influenza (IIV3) PF 01/04/2012 MMR 11/12/1997 TDAP (Adacel,Boostrix) 09/12/2000 TDAP Vaccine (Adacel) 12/05/2011 Td (Adult), Adsorbed 09/12/2000 Varicella 11/12/1997 Family History Medical History Relation Comments Coronary Artery Disease Father Depression Father Suicide Father Hypertension Mother Obesity Mother Thyroid Disease Mother Celiac Disease Paternal Aunt Obesity Paternal Grandfather Thyroid Cancer Paternal Grandfather Thyroid Disease Paternal Grandfather Cancer Cerebrovascular Disease Paternal Grandmother Dementia Paternal Grandmother Other - See Comments Paternal Grandmother Gluten intolerance Breast Cancer No family hx of Colon Cancer No family hx of Relation Status Comments Brother Alive Father Maternal Grandfather Alive Maternal Grandmother Alive Mother Alive Paternal Aunt Paternal Grandfather Alive Paternal Grandmother Social History Tobacco Use Types Packs/Day Years Used Date Smoking Tobacco: Never Smokeless Tobacco: Never Alcohol Use Standard Drinks/Week Comments Yes 0 (1 standard drink = 0.6 oz pur e alcohol) AUDIT-C Answer Date Recorded Frequency of Alcohol Consumption 2-4 times a mon07/27/2018 Average Number of Drinks 3 or 4 019 Frequency of Binge Drinking Never 07/11 PHQ-2 Answer Date Recorded PHQ-2 Score 0 06/01/2020 Adolescent Education Answer Date Record ed Getting School Help Needed Not on file 12/17 Comments No Sex and Gender Information Value Date Recorded Sex Assigned at Female 05/26/2020 8:38 AM CDT 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 Gender Identity Female 05/26/2020 8:38 AM CDT Sexual Orientation Straight 05/26/2020 8: 38 AM CDT Last Filed Vital Signs Vital Sign Reading Time Taken Comments Blood Pressure 98/62 06/01/2020 4:07 PM CDT Pulse 77 06/01/2020 4:07 PM CDT Temperature 37.4 ??C (99.3 ??F) 06/01/2020 4:07 PM CD T Respiratory Rate 18 12/27/2010 7:47 PM CDT Oxygen Saturation 99% 06/01/2020 4:07 PM CDT Inhaled Oxygen Concentration - - Weight 65 kg (143 lb 4.8 oz) 06/01/2020 4:07 PM CDT Height 162.6 cm (5' 4) 06/01/2020 4:07 PM CDT Body Mass Index 24.6 06/01/2020 4:07 PM CDT Plan of Treatment Health Maintenance Due Date Last Done Comments ADVANCE CARE PLANNING 1990 ANNUAL REVIEW OF HM ORDERS 1990 HEPATITIS B IMMUNIZATION (4 of 4 - 4-dose series) 05/11/2001 03/16/2001, 03/16/2001, 09/12/2000, Additional history exists HEPATITIS C SCREENING 01/28/2008 HPV FOLLOW-UP 06/01/2021 06/01/2020 PAP FOLLOW-UP 06/01/2021 06/01/2020 YEARLY PREVENTIVE VISIT 06/01/2021 06/01/2020 DTAP/TDAP/TD IMMUNIZATION (3 - Td or Tdap) 12/04/2021 12/05/2011, 09/12/2000, 09/12/2000 PHQ-2 (once per calendar year) 2023 06/01/2020 COVID-19 Vaccine ( - 2023- season) 2023 INFLUENZA VACCINE (#1) 2023 01/04/2012 RSV VACCINE (1 - 1-dose 75+ series) 2065 HIV SCREENING Completed 07/20/2011 PAP Discontinued 06/01/2020 HPV IMMUNIZATION Aged Out No longer e ligible based on patient's age to complete this topic MENINGITIS IMMUNIZATION Aged Out No l onger eligible based on patient's age to complete this topic Pneumococcal Vaccine: Pediatrics (0 to 5 Years) and At-Risk Patients (6 to 64 Years) Aged Out No longer eligible based on patient's age to complete this topic RSV MONOCLONAL ANTIBODY Aged Out No l onger eligible based on patient's age to complete this topic Procedures Procedure Name Priority Date/Time Associated Diagnosis Comments HPV HIGH RISK TYPES DNA CERVICAL Routine 06/01/2020 5:22 PM CDT Screening for cervical cancer PAP IMAGED THIN LAYER SCREEN Routine 06/01/2020 5:00 PM CDT Screening for cervical cancer HIV AG/AB SCREEN [facility] ([facility]) Routine 07/20/2011 3:33 PM CDT from Last 3 Months or Most Recently Relevant to Health Maintenance Results * (ABNORMAL) HPV High Risk Types DNA Cervical (06/01/2020 5:22 PM CDT) HPV Source SurePath 06/01/2020 5:00 PM CDT [facility] HPV 16 DNA Negative NEG^Nega tive 06/05/2020 4:02 PM CDT [facility] HPV 18 DNA Negative NEG^Nega tive 06/05/2020 4:02 PM CDT [facility] Other HR HPV Positive(A) NEG^Nega tive 06/05/2020 4:02 PM CDT [facility] Final Diagnosis This patient's sample is positive for other HR HPV DNA (types 31, 33, 35, 39, 45, 51, 52, 56, 58, 59, 66 or 68), not HPV 16 or HPV 18 DNA. This result requires clinical correlation with concurrent cytology findings. 06/05/2020 4:02 PM CDT [facility] Comment: This test was developed and its performance characteristics determined by the [facility], [facility]. It has not been cleared or approved by the FDA. The laboratory is regulated under CLIA as qualified to perform high-complexity testing. This test is used for clinical purposes. It should not be regarded as investigational or for research. (Note) METHODOLOGY: ??The Kassandra gael 4800 system uses automated extraction, simultaneous amplification of HPV (L1 region) and beta-globin, ?? followed by ??real time detection of fluorescent labeled HPV and beta globin using specific oligonucleotide probes . The test specifically identifies types HPV 16 DNA and HPV 18 DNA while concurrently detecting the rest of the high risk types (31, 33, 35, 39, 45, 51, 52, 56, 58, 59, 66 or 68). COMMENTS: ??This test is not intended for use as a screening device for women under age 30 with normal cervical cytology. ??Results should be correlated with cytologic and histologic findings. Close clinical followup is recommended. Specimen Description Cervical Cells 06/01/2020 5:00 PM CDT [facility] Cervical Cells 06/01/2020 5: 22 PM CDT 06/01/2020 5:27 PM CDT Zoey Dailey MD LAB - BLOOD ORDERABL ES Final Result [facility] [id number] [place] [address] [address] * Pap imaged thin layer screen with HPV - recommended age 30 - 65 years (select HPV order below) (06/01/2020 5:00 PM CDT) PAP CAITLIN Russell Report Patient Name: ALLIE DUCKWORTH MR#: [id number] Specimen #: [id number] Collected: 06/01/2020 Received: 06/03/2020 Reported: 06/04/2020 12:26 Ordering Phy(s): ZOEY DAILEY For improved result formatting, select 'View Enhanced Report Format' under Linked Documents section. SPECIMEN/STAIN PROCESS: Pap imaged thin layer prep screening (Surepath, FocalPoint with guided screening) ? Pap-Cyto x 1, HPV ordered x 1 SOURCE: Cervical, endocervical Pap imaged thin layer prep screening (Surepath, FocalPoint with guided screening) SPECIMEN ADEQUACY: Satisfactory for evaluation. -Transformation zone component absent. CYTOLOGIC INTERPRETATION: Negative for intraepithelial lesion or malignancy Electronically signed out by: YORDAN Low (ASCP) CLINICAL HISTORY: Intra-Uterine Device, Papanicolaou Test Limitations: ??Cervical cytology is a screening test with limited sensitivity; regular screening is critical for cancer prevention; Pap tests are primarily effective for the diagnosis/preventi on of squamous cell carcinoma, not adenocarcinomas or other cancers. COLLECTION SITE: Client: ??[facility] Location: [facility] (R) The technical component of this testing was completed at the [facility], with the professional component performed at the [facility], [address] [place] [phone] ([phone]) LACIE Cytologic material (specimen) 06/01/2020 5:00 PM CDT 06/03/2020 11:44 AM CDT us Zoey Dailey MD LAB - OPTIME CLINICA L SPECIMEN Final Result [facility] * HIV Ag/Ab Screen [place] ([facility]) (07/20/2011 3:33 PM CDT) HIV Antigen/Antibo dy Negative [facility] HISTORICAL RESULTS 07/20/2011 3:33 PM CDT 07/20/2011 3:33 PM CDT us Stephanie Mendieta MD LAB - [facility] Edited [facility] HISTORICAL RESULTS from Last 3 Months or Most Recently Relevant to Health [place] [address] [facility] INDIVIDUAL FAMILY PLANS Care Teams Solderer Barrel Ribs Relationship Specialty Start Date End Date Zoey Dailey MD [address] [place] [address] [place] [address] PCP - General Internal Medicine 07/27/18
--- OUTSIDE RECORDS SUMMARY | 2024-01-10 15:42 | XMS_ITS | Encounter Summary ---
Author Organization [facility] Address [address] [place] [address] Care Team Providers Care Sample Grader Name Role Phone [facility], [facility] Primary Care Pr ovider Stephanie Mendieta MD Primary Care Provider [phone]- [phone] Raffy Frye MD Primary Care Provid er Raffy Frye MD Unavailable + [phone] Raffy Frye MD Unavailable [phone]- [phone] Encounter Details Date Type Department Care Team (Late st Contact Info) Description 09/27/2011 Office Visit-P INTERFACE [facility] DEPT Keara Bradley Social History Tobacco Use Types Packs/Day Years Used Date Smoking Tobacco: Never Assessed Comments Yes Sex and Gender Information Value Date Recorded Sex Assigned at Female 05/26/2020 8:38 AM CDT 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 US 2nd & 3rd Trimester Ultrasound Report Primary MD: Dr Mendieta Venetian Blind Maker: Keara Bradley Indications: recheck head,heart and outflow tracts P: 0 Machine: [facility] 5 Pro FHR: 128 bpm Fluid:Normal Placenta Location: posterior number:[place] Presentation: Vertex SURVEY Cerebellum Normal Intracranial Anatomy (Choroid Plexus, Cisterna Magna Lateral ventricles, Midline Falx Cavum Septi Pellucidi) as seen Normal Heart: (4 chamber) 4 chambers seen Heart:(out flow tracts) not well seen MEASUREMENTS: BPD: 6.9 cm 28wks HC: 25.7 cm 27wks 6d AC: 24.3 cm 28wks 4d FL: 5.2 cm 27wks 5d EFW: 2#10oz Weight Percentile: 73%tile CONCLUSIONS: TECHNICALLY DIFFICULT STUDY due to head position. By 1st US EGA : 27wks 2d BETH : 12/25/2011 By today's U/S EGA : 27wks 4d +/-2 to 3 wks BETH U/S: 12/23/2011 Ultrasound Measurements are consistent with previous US Follow up Ultrasound as clinically indicated. Attending Note Images reviewed and agree with documentation. Follow up as clinically indicated. Supervising Physician: Dr. Akins Amended By: Rodolfo Akins ; 10/03/2011 9:44 AM MAMMA LOGIST. Signature Signed By: Keara Bradley ; 09/27/2011 11:10 AM MAMMA LOGIST. Signed By: Rodolfo Akins M.D.; 10/03/2011 9:44 AM MAMMA LOGIST. A LOGIST A LOGIST documented in this encounter Plan of Treatment Not on file documented as of this encounter Visit Diagnoses Not on filedocumented in this encounter Care Teams Sample Grader Relationship Specialty Start Date End Date Clinic, [facility] [address] [place] [address] PCP - General 12/27/10 02/10/12 [place] [address] [place] [address] PCP - General Family Practice 02/11/12 07/26/18 Raffy Frye MD [address] [facility] [place] [address] PCP - General Internal Medicine 07/27/18 Raffy Frye MD [address] [place] [address] [place] [address] Assigned PCP 07/06/18 02/25/22 Raffy Frye MD [address] [facility] [place] [address] Assigned PCP 05/07/22 07/03/23 documented as of this encounter
--- OUTSIDE RECORDS SUMMARY | 2024-01-10 15:42 | XMS_ITS | Encounter Summary ---
Author Organization [facility] Address [address] [place] [address] Care Team Providers Care Dietist Name Role Phone Clinic, [facility] [place] [facility] Pr ovider Stephanie Mendieta MD Primary Care Provider +1- [phone] Raffy Frye MD Primary Care Provid er Raffy Frye MD Unavailable + [phone] Raffy Frye MD Unavailable +1- [phone] Encounter Details Date Type Department Care Team (Late st Contact Info) Description 08/23/2011 Office Visit-P INTERFACE UMP DEPT Keara Bradley Social History Tobacco Use Types Packs/Day Years Used Date Smoking Tobacco: Never Assessed Comments Yes Sex and Gender Information Value Date Recorded Sex Assigned at Female 05/26/2020 8:38 AM CDT Legal Sex Female 3:36 AM IT ARCHITECTURE CONSULTANT Gender Identity Female 05/26/2020 8:38 AM CDT Sexual Orientation Straight 05/26/2020 8: 38 AM CDT documented as of this encounter Progress Notes * Keara Bradley - 08/23/2011 10:30 AM CDT Career Developer: Keara Bradley Status: Amended, Final Encounter: 2011-08-23 10:30:00.000 Type: FM Ultrasound Active Problems Care Coordinated By; Tier 1 5-4-12. US 2nd & 3rd Trimester Ultrasound Report Primary MD: Dr Mendieta President College Or University: Keara Bradley Indications: survey P: 0 Machine: ThemBid 5 Pro FHR: 140 bpm Fluid:Normal Placenta Location: posterior number:[place] Presentation: Vertex SURVEY Cerebellum Unable to visualize Intracranial Anatomy (Choroid Plexus, Cisterna Magna Lateral ventricles, Midline Falx Cavum Septi Pellucidi) Unable to visualize Heart: (4 chamber) 4 chambers seen Heart:(out flow tracts) Unable to visualize Diaphragm Normal Stomach Normal Kidney: Right Normal Left Normal Umbilical Cord: 3 vessels: Normal Insertion: Normal Bladder Normal Spine: Cervical Normal Thoracic Normal L/S Normal 4 limbs visualized Sex Determination Male MEASUREMENTS: BPD: unable to measure due to position HC: AC: 18.3 cm 23wks 1d FL: 3.9 cm 22wks 6d EFW: 1#4oz Weight Percentile: 85%tile CONCLUSIONS: 1st u/s not done here By 1st US EGA : 22wks 2d BETH : 12/25/2011 By today's U/S EGA : 22wks 5d +/-14d BETH U/S: 12/22/2011 Ultrasound Measurements are consistent with previous US Follow up Ultrasound recommended in 5 to 7 weeks to recheck head. The head is not well seen today due to position. Attending Note Images reviewed and agree with documentation. Amended By: Rodolfo Akins ; 09/02/2011 1:56 PM IT ARCHITECTURE CONSULTANT. Signature Signed By: Keara Bradley ; 08/23/2011 11:43 AM IT ARCHITECTURE CONSULTANT. Signed By: Rodolfo Akins M.D.; 09/02/2011 1:56 PM IT ARCHITECTURE CONSULTANT. ARCHITECTURE CONSULTANT ARCHITECTURE CONSULTANT documented in this encounter Plan of Treatment Not on file documented as of this encounter Visit Diagnoses Not on filedocumented in this encounter Care Teams Dietist Relationship Specialty Start Date End Date Clinic, [address] [address] PCP - General 12/27/10 02/10/12 [place] [address] [place] [address] PCP - General Family Practice 02/11/12 07/26/18 Raffy Frye MD [facility] [place] [address] PCP - General Internal Medicine 07/27/18 Raffy Frye MD [address] [place] [address] [place] [address] Assigned PCP 07/06/18 02/25/22 Raffy Frye MD [facility] [place] [address] Assigned PCP 05/07/22 07/03/23 documented as of this encounter
--- OUTSIDE RECORDS SUMMARY | 2024-01-10 15:42 | XMS_ITS | Clinical Summary ---
Author Organization [facility] Address [address] [place] [address] Care Team Providers Care Parking Supervisor Name Role Phone Clinician, Not Found MD Primary Care Provider Un available Source Comments You are receiving this document as you are listed as the primary care provider,follow-up provider, or the patient has been referred to you for consultation.This is in compliance with the Medicare and[facility] Hospital[facility] EHR Incentive Program,which states Providers who transition their patient to another setting of careor provider of care or refers their patient to another provider of care shouldprovide summary care record for each transition of care or referral. [facility] Allergies No known active allergies Medications Medication Sig Dispensed Refills Start Date End Date Status IUD'S IU Active Active Problems Problem Noted Date Diagnosed Date Abdominal pain 07/16/2018 , missed 12/24/2010 Family History Relation Name Status Comments Father Alive Mother Alive Brother Alive Maternal Grandfather Alive Maternal Grandmother Alive Paternal Grandfather Alive Paternal Grandmother Alive Social History Tobacco Use Types Packs/Day Years Used Date Smoking Tobacco: Never Tobacco Cessation:Counseling Given: No Alcohol Use Standard Drinks/Week Comments No 0 (1 standard drink = 0.6 oz pur e alcohol) Sex and Gender Information Value Date Recorded Sex Assigned at Not on file Gender Identity Not on file Sexual Orientation Not on file Last Filed Vital Signs Vital Sign Reading Time Taken Comments Blood Pressure 128/56 07/16/2018 10:19 AM CDT Pulse 86 07/16/2018 10:19 AM CDT Temperature 36.8 ??C (98.2 ??F) 07/16/2018 10:19 AM C DT Respiratory Rate 16 07/16/2018 10:19 AM CDT Oxygen Saturation 99% 07/16/2018 10:19 AM CDT Inhaled Oxygen Concentration - - Weight 62.1 kg (137 lb) 02/01/2016 11:00 AM AEROSPACE PROJECT ENGINEER Height 162.6 cm (5' 4) 12/23/2010 10:15 AM CDT Body Mass Index 23.52 12/23/2010 10:15 AM CDT Plan of Treatment Health Maintenance Due Date Last Done Comments Cervical Cancer Screening Due 1990 Hep C Screening (Preventive Services) 1990 HIV Screening (Preventive Services) 2006 Adult Preventive Visit 01/28/2008 DTaP/Tdap/Td (1 - Tdap) 2009 HepB (1) 2009 COVID-19 Vaccine ( - 2023-2 5 season) 2023 Influenza (#1) 2023 Zoster/Shingles (1 of 2) 01/28/2040 HPV Vaccine Aged Out No longer eligi ble based on patient's age to complete this topic HepA Aged Out No longer eligi ble based on patient's age to complete this topic Hib Aged Out No longer eligi ble based on patient's age to complete this topic IPV (Polio) Aged Out No longer eligi ble based on patient's age to complete this topic Infant RSV Aged Out No longer eligi ble based on patient's age to complete this topic MCV4 Aged Out No longer eligi ble based on patient's age to complete this topic Pneumococcal Aged Out No longer eligi ble based on patient's age to complete this topic Care Teams Parking Supervisor Relationship Specialty Start Date End Date Clinician, Not Found, [place] [address] PCP - General 12/18/15
--- OUTSIDE RECORDS SUMMARY | 2024-01-10 15:42 | XMS_ITS | Encounter Summary ---
Author Organization [facility] Address [address] [place] [address] Care Team Providers Care Quality Control Clerk Name Role Phone Clinic, [facility] [place] [facility] Pr ovider Stephanie Mendieta MD Primary Care Provider [phone]- [phone] Raffy Frye MD Primary Care Provid er Raffy Frye MD Unavailable + [phone] Raffy Frye MD Unavailable + [phone] Encounter Details Date Type Department Care Team (Late st Contact Info) Description 10/18/2011 Office Visit-UMP INTERFACE UMP DEPT Unknown, Provider Social History Tobacco Use Types Packs/Day Years Used Date Smoking Tobacco: Never Assessed Comments Yes Sex and Gender Information Value Date Recorded Sex Assigned at Female 05/26/2020 8:38 AM CDT Legal Sex Female 3:36 AM INTERPERSONAL COMMUNICATIONS PROFESSOR Gender Identity Female 05/26/2020 8:38 AM CDT Sexual Orientation Straight 05/26/2020 8: 38 AM CDT documented as of this encounter Progress Notes * Unknown, Provider - 10/18/2011 1:06 PM CDT Walnut Dehydrator Operator: Ganesh Flores Status: Signed Encounter: 2011-10-18 13:06:00.000 Type: PCC Chart Note sent records to L&D--leora 10-18-11 Electronically signed by:Ganesh Flores Oct 18 2011 1:07PM INTERPERSONAL COMMUNICATIONS PROFESSOR documented in this encounter Plan of Treatment Not on file documented as of this encounter Visit Diagnoses Not on filedocumented in this encounter Care Teams Quality Control Clerk Relationship Specialty Start Date End Date Clinic, [facility] [place] [address] [place] [address] PCP - General 12/27/10 02/10/12 [place] [address] [place] [address] PCP - General Family Practice 02/11/12 07/26/18 Raffy Frye MD [address] [facility] [place] [address] PCP - General Internal Medicine 07/27/18 Raffy Frye MD [address] [facility] [place] [address] Assigned PCP 07/06/18 02/25/22 Raffy Frye MD [address] [facility] [place] [address] Assigned PCP 05/07/22 07/03/23 documented as of this encounter
--- OUTSIDE RECORDS SUMMARY | 2024-01-10 15:42 | XMS_ITS | Clinical Summary ---
Author Organization [facility] Address [place], [place] [address] Care Team Providers Care Issuing Operator Name Role Phone Jose Daniel, [facility] Primary Care Provider Un available Allergies Active Allergy Reactions Criticality Noted Date Comments Penicillins *Unknown 04/13/2019 Medications Medication Sig Dispensed Refills Start Date End Date Status HYDROcodone-acetam inophen (5-325 mg/tablet)Indicati ons:Nondisplaced transverse fracture of shaft of left fibula, initial encounter for closed fracture Take 1 Tablet by mouth every 4 hours if needed for Pain. Max acetaminophen dose: 4000 mg in 24 hrs. 20 Tablet 11/15/2023 Active Encounters Date Type Department Care Team Description 11/17/2023 Nurse Triage [facility] [address] [facility] [address] [place] [address] Keila Roberto MD Questions 11/17/2023 Telephone [facility] [address] [facility] [address] [place] [address] Keila Roberto MD Error-please disregard 11/15/2023 6:50 PM CDT Ancillary Procedure [facility] [address] [place] [address] 11/15/2023 6:15 PM CDT [facility] Visit [facility] [address] [place] [id number] Keila Roberto MD Foot Injury 11/15/2023 Travel from Last 3 Months Social History Tobacco Use Types Packs/Day Years Used Date Smoking Tobacco: Never Smokeless Tobacco: Never Tobacco Cessation:Counseling Given: Not Answered Alcohol Use Standard Drinks/Week Comments Not Currently 0 (1 standard drink = 0.6 oz pur e alcohol) Sex and Gender Information Value Date Recorded Sex Assigned at Not on file Gender Identity Not on file Sexual Orientation Not on file Obstetrics History Last Filed Vital Signs Vital Sign Reading Time Taken Comments Blood Pressure 123/72 11/15/2023 6:28 PM CDT Pulse 72 11/15/2023 6:28 PM CDT Temperature 36.2 ??C (97.2 ??F) 11/15/2023 6:28 PM CD T Respiratory Rate 16 11/15/2023 6:28 PM CDT Oxygen Saturation 99% 11/15/2023 6:28 PM CDT Inhaled Oxygen Concentration - - Weight 63.1 kg (139 lb 1.6 oz) 04/13/2019 8:28 P M MIXER RUNNER Height 162.6 cm (5' 4) 04/13/2019 8:28 PM MIXER RUNNER Body Mass Index 23.88 04/13/2019 8:28 PM MIXER RUNNER Plan of Treatment Health Maintenance Due Date Last Done Comments Tdap 2001 Depression screening for age 12+ 2002 HIV for age 15-65 2005 BMI (ht and wt on same day) for age 18+ 01/28/2008 Hepatitis C screening for age 18-79 01/28/2008 Tetanus booster 2010 COVID-19 vaccine series ( season) 2023 Influenza for age 9-49 11/12/2023 Pap test for age 21-65 04/21/2026 , 04/21/2023, 12/03/2021, Additional history exists Pneumococcal series for age 6-64 Aged Out No longer eligible based on patient's age to complete this topic Procedures Procedure Name Priority Date/Time Associated Diagnosis Comments XR ANKLE 3 VIEWS LEFT STAT 11/15/2023 6:58 PM CDT Injury of left ankle, initial encounter URINE Routine 11/15/2023 6:40 PM CDT Possible HPV HIGH RISK Routine 04/21/2023 12:00 PM MIXER RUNNER from Last 3 Months or Most Recently Relevant to Health Maintenance Results * XR ANKLE 3 VIEWS LEFT (11/15/2023 6:58 PM CDT) Anatomical Region Laterality Modality ANKLES, ANKLE L Computed Radiogr aphy 11/15/2023 7:00 PM CDT Narrative 11/15/2023 7:00 PM CDT For Patients: ??As a result of the Cures Act, medical imaging exams and procedure reports are released immediately into your electronic medical record. ??You may view this report before your referring provider. ??If you have questions, please contact your health care provider. Indication: Injury and pain Technique: Left ankle 3 views. Comparison: None Findings: Bones: Transverse fracture lateral malleolus without significant displacement. Joint spaces: No dislocation. Large ankle effusion. Soft tissues: Lateral soft tissue swelling. Impression: Lateral soft tissue swelling with nondisplaced lateral malleolar fracture. Dictated by Thomas Bland MD @ 11/15/2023 7:00:42 PM (Electronically Signed) Procedure Note Thomas Bland MD - 11/15/2023 For Patients: As a result of the Cures Act, medical imagingexams and procedure reports are released immediately into your electronicmedical record. You may view this report before your referring provider.If you have questions, please contact your health care provider. Indication: Injury and pain Technique: Left ankle 3 views. Comparison: None Findings: Bones: Transverse fracture lateral malleolus without significantdisplacement. Joint spaces: No dislocation. Large ankle effusion. Soft tissues: Lateral soft tissue swelling. Impression: Lateral soft tissue swelling with nondisplaced lateral malleolarfracture. Dictated by Thomas Bland MD @ 11/15/2023 7:00:42 PM (Electronically Signed) Keila Roberto MD GENERAL IMAGING * URINE (11/15/2023 6:40 PM CDT) ,URIN E Negative Negative 11/15/2023 6:46 PM CDT [facility] Urine URINE SPECIMEN / Unknown Non-Blood / Unknown 11/15/2023 6:40 PM CDT 11/15/2023 6:40 PM CDT Keila Roberto MD URINE [facility] [address], [address] [place] [address] * HPV HIGH RISK (04/21/2023 12:00 PM MIXER RUNNER) TYPE 16 Negative Negative 04/26/2023 2:25 PM MIXER RUNNER [facility] TYPE 18 Negative Negative 04/26/2023 2:25 PM MIXER RUNNER [facility] OTHER HIGH RISK TYPES Negative Negative 04/26/2023 2:25 PM MIXER RUNNER [facility] Other (Cervical) 04/21/2023 12:00 PM MIXER RUNNER 04/25/2023 8:54 AM MIXER RUNNER Narrative [facility] - 04/26/2023 2:25 PM MIXER RUNNER HPV types 16, 18, 31, 33, 35, 39, 45, 51, 52, 56, 58, 59, 66 and 68 DNA were undetectable or below the pre-set threshold. Methodology: Kassandra Alexandra 4800 HPV Test Juany Myers NP [facility] [address] [place] [address], from Last 3 Months or Most Recently Relevant to Health Maintenance Care Teams Issuing Operator Relationship Specialty Start Date End Date Francy Sky [facility] PCP - General 04/13/19
--- OUTSIDE RECORDS SUMMARY | 2024-01-10 15:42 | XMS_ITS | Encounter Summary ---
Author Organization [facility] Address [address] [place] [address] Care Team Providers Care Coal Deliverer Name Role Phone Clinic, [facility] [place] Primary Care Pr ovider Stephanie Mendieta MD Primary Care Provider +1- [phone] Raffy Frye MD Primary Care Provid er Raffy Frye MD Unavailable +1- [phone] Raffy Frye MD Unavailable +1- [phone] Encounter Details Date Type Department Care Team (Late st Contact Info) Description 01/10/2012 Office Visit-P INTERFACE P DEPT Stephanie Mendieta MD [address] [place] [address] [id number] Social History Tobacco Use Types Packs/Day Years Used Date Smoking Tobacco: Never Assessed Comments Yes Sex and Gender Information Value Date Recorded Sex Assigned at Female 05/26/2020 8:38 AM CDT Legal Sex Female 3:36 AM SCIENCE CENTER DISPLAY BUILDER Gender Identity Female 05/26/2020 8:38 AM CDT Sexual Orientation Straight 05/26/2020 8: 38 AM CDT documented as of this encounter Progress Notes * Stephanie Mendieta MD - 01/10/2012 1:20 PM CDT Bead Wrapper: Stephanie Mendieta Status: Final Encounter: 2012-01-10 13:20:00.000 Type: FM Visit Reason For Visit Patient presents for check up. Allergy List reviewed: Current Immunizations reviewed: Up to date Patient has had flu shot at [facility] on 01/04/12 Medication list reviewed with patient and was updated and not taking any meds at this time. PHQ2 was given and was negative. Allergies Penicillins. Smoking Assessment No secondhand cigarette smoke exposure. No tobacco use. Vital Signs Recorded by Horace Narvaez on 10 Jan 2012 01:29 PM BP:120/73, RUE, Sitting, HR: 71 b/min, Temp: 97.7 F, Oral, Height: 63.25 in, Weight: 133 lb, BMI: 23.4 kg/m2. Current Meds HydrOXYzine Pamoate 50 MG Capsule;TAKE 1 CAPSULE EVERY 6 HOURS PRN; Rx. Active Problems Care Coordinated By; Tier 1 5-4-12. SOAP POST VISIT Concerns: Jackie Castañeda presents today for a post- visit. No concerns today. Date of delivery: vaginal without complications complications: none Lochia? minimal Breast feeding? Yes, is going well Breast complaints ? No Body image? No concerns During the past month, have you often been bothered by feeling down, depressed, or hopeless? No During the past month, have you often been bothered by having little interest or pleasure in doing things? No Perineal pain? None Urinary Incontinence None Sexual Activity: Resumed with no concerns/pain Contraception: OCP-see below ROS: Constitutional Normal Eyes Normal ENT/Mouth Normal CV Normal Resp Normal GI Normal Musculoskeletal Normal Skin Normal Neuro Normal Endocrine Normal Hem/Lymph Normal Normal Past medical Hx: No significant past medical history Social Hx: She is currently living in [place] with her family. She is in a healthy relationship with her son's father and she feels safe in the relationship. 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 She has a loving, supportive family. RISK BEHAVIORS AND HEALTHY HABITS Tobacco Use/Smoking None Illicit Drug Use None ETOH None Diet (5-7 servings of fruits/veg daily) Yes Exercise (30 min most days) Yes Seat Belt Use Yes IMMUNIZATIONS: Reviewed Immunization Record Today EXAMINATION: General: Normal Vital signs: Normal EYES Conjunctiva/Lids Normal Pupils/Iris Normal Fundi Normal ENT Ears/Nose ext Normal TM/EAC Normal Titus muc/sep/turb Normal Mouth/Pharynx Normal Lip/Teeth/Gums Normal NECK Neck gross Normal Thyroid Normal RESPIRATORY Lung ausc Normal Resp effort Normal BREASTS Breast inspect Normal Breast palpate Normal CARDIOVASCULAR Heart ausc Normal Pedal pulses Normal Vericose/Edema Normal ABDOMEN Abd (tender-mass) Normal Liver/Spleen Normal - FEMALE Vagina Normal Bladder Normal Urethra Normal Cervix Normal Uterus Normal Adnexa Normal Labia Normal LYMPHATIC Lymph/Neck Normal MUSCULOSKELETAL Gait/Station Normal PSYCHIATRIC Judgement/insight Normal Mood/affect Normal Assessment and Plan: 1. Normal visit -Will start an OCP today, Sprintec 28 0.25-30 mg-mcg. Discussed with the patient that although thisis a very good method of contraception when taken correctly, it does not protect against STI's, therefore, it is important to also use a barrier method, such as condoms. -Patient is doing well and feels very supported, no concerns today . Plan Patient participated in and agrees with today's plan. Attending Note Patient reviewed and discussed with resident. Agree with Plan of Care. Supervising Physician: Dr. Callaway. Signature Signed By: Stephanie Mendieta M.D.,Resident; 02/01/2012 8:14 PM SCIENCE CENTER DISPLAY BUILDER. Signed By: Meenakshi Callaway MD; 02/07/2012 2:48 PM SCIENCE CENTER DISPLAY BUILDER. NCE CENTER DISPLAY BUILDER NCE CENTER DISPLAY BUILDER NCE CENTER DISPLAY BUILDER NCE CENTER DISPLAY BUILDER NCE CENTER DISPLAY BUILDER NCE CENTER DISPLAY BUILDER NCE CENTER DISPLAY BUILDER NCE CENTER DISPLAY BUILDER documented in this encounter Plan of Treatment Not on file documented as of this encounter Visit Diagnoses Not on filedocumented in this encounter Care Teams Coal Deliverer Relationship Specialty Start Date End Date Clinic, [facility] [address] [place] [address] PCP - General 12/27/10 02/10/12 [place] [address] [place] [address] PCP - General Family Practice 02/11/12 07/26/18 Raffy Frye MD [address] [place] [address] [place] [address] PCP - General Internal Medicine 07/27/18 Raffy Frye MD [address] [place] [address] [place] [address] Assigned PCP 07/06/18 02/25/22 Raffy Frye MD [address] [place] [address] [place] [address] Assigned PCP 05/07/22 07/03/23 documented as of this encounter
--- OUTSIDE RECORDS SUMMARY | 2024-01-10 15:42 | XMS_ITS | Referral Summary ---
Author Organization [facility] Address [address] [place] [address] Care Team Providers Care Stone Mason Name Role Phone Zoey Dailye MD Primary Care Provid er Allergies Active [...] call - spoke to pt, moved to [place] and seeing a provider in a different Health System. She states she will be going to them for her pap and routine care now. IUD (intrauterine device) in place 07/27/2018 Immunizations Name Administration Dates Next Due HepB 03/16/2001,09/12/2000 Hepatitis B, Peds 03/16/2001,09/12/2000 Influenza (IIV3) PF 01/04/2012 MMR 11/12/1997 TDAP (Adacel,Boostrix) 09/12/2000 TDAP Vaccine (Adacel) 12/05/2011 Td (Adult), Adsorbed 09/12/2000 Varicella 11/12/1997 Social History Tobacco Use Types Packs/Day Years Used Date Smoking Tobacco: Never Smokeless Tobacco: Never Alcohol Use Standard Drinks/Week Comments Yes 0 (1 standard drink = 0.6 oz pur e alcohol) AUDIT-C Answer Date Recorded Frequency of Alcohol Consumption 2-4 times a mon 07/27/2018 Average Number of Drinks 3 or 4 019 Frequency of Binge Drinking Never 07/11 PHQ-2 Answer Date Recorded PHQ-2 Score 0 06/01/2020 Adolescent Education Answer Date Record ed Getting School Help Needed Not on file 12/17 Comments No Sex and Gender Information Value Date Recorded Sex Assigned at Female 05/26/2020 8:38 AM CDT Legal Sex Female 3:36 AM CAREER AND GUIDANCE COUNSELOR Gender Identity Female 05/26/2020 8:38 AM CDT [...] 06/01/2020 4:07 PM CDT Plan of Treatment Not on file Procedures Procedure Name Priority Date/Time Associated Diagnosis [...] HPV Source SurePath 06/01/2020 5:00 PM CDT [facility] HPV 16 DNA Negative NEG^Nega tive 06/05/2020 4:02 PM CDT [facility] HPV 18 DNA Negative NEG^Nega tive 06/05/2020 4:02 PM CDT [facility] Other HR HPV Positive(A) NEG^Nega tive 06/05/2020 4:02 PM CDT [facility] Final Diagnosis This patient's sample is positive for other HR HPV DNA (types 31, 33, 35, 39, 45, 51, 52, 56, 58, 59, 66 or 68), not HPV 16 or HPV 18 DNA. This result requires clinical correlation with concurrent cytology findings. 06/05/2020 4:02 PM CDT [facility] Comment: This test was developed and its performance characteristics determined by the [facility], Molecular Diagnostics Laboratory. It has [...] Description Cervical Cells 06/01/2020 5:00 PM CDT [facility] Cervical Cells 06/01/2020 5: 22 PM CDT 06/01/2020 5:27 PM CDT Zoey Dailey MD LAB - BLOOD ORDERABL ES Final Result [facility] [address] [place] [address] [address] * Pap imaged thin layer screen with HPV - recommended age 30 - 65 years (select HPV order below) (06/01/2020 5:00 PM CDT) PAP NIL COPATH Copath Report Patient Name: JACKIE DUCKWORTH MR#: [id number] Specimen #: [id number] Collected: 06/01/2020 Received: 06/03/2020 Reported: 06/04/2020 12:26 Ordering Phy(s): ZOEY DAIELY For improved result formatting, select 'View Enhanced [...] adenocarcinomas or other cancers. COLLECTION SITE: Client: ??[facility] Location: [facility] ([facility]) The technical component of this testing was completed at the [facility] [employer] [facility], with the professional component performed at the [facility], [address] [place] [phone] ([phone]) LACIE Cytologic material (specimen) 06/01/2020 5:00 PM CDT 06/03/2020 11:44 AM CDT us Zoey Dailey MD LAB - OPTIME CLINICA L SPECIMEN Final Result COP[facility] * HIV Ag/Ab Screen [place] [facility] (07/20/2011 3:33 PM CDT) HIV Antigen/Antibo dy Negative [facility]MP HISTORICAL RESULTS 07/20/2011 3:33 PM CDT 07/20/2011 3:33 PM CDT us Stephanie Mendieta MD LAB - [facility] Edited [facility]MP HISTORICAL RESULTS from Last 3 Months or Most Recently Relevant to Health Maintenance Insurance [facility] INDIVIDUAL FAMILY PLANS Care Teams Stone Mason Relationship Specialty Start Date End Date Zoey Dailey MD [address] [place] [address] [place]LE M[place]QUE[place] [phone] PCP - General Internal Medicine 07/27/18
== END 2024-01-10 09:21 | disposition home or self-care (01) ==
LOC: NFLDREF 15:40
PROVIDERS: PCP Family Medicine; Referring Provider Family Medicine; Visit Provider Registered Nurse
DX: O09.299 Supervision of pregnancy with other poor reproductive or obstetric history, unspecified trimester (principal)
CPT/HCPCS: 84702

== ENCOUNTER 2024-01-12 09:13 | Outpatient (CLI) | payer OTHER, SELFPAY ==
--- OUTSIDE RECORDS SUMMARY | 2024-01-15 12:04 | XMS_ITS | Encounter Summary ---
Author Organization [facility] Address [address] [place] [address] Care Team Providers Care Vascular Technologist Sonographer Name Role Phone Clinic, [facility] [place] Primary Care Pr ovider Stephanie Mendieta MD Primary Care Provider +1- [phone] Raffy Frye MD Primary Care Provid er Raffy Frye MD Unavailable + [phone] Raffy Frye MD Unavailable + [phone] Encounter Details Date Type Department Care Team (Late st Contact Info) Description 09/27/2011 Office Visit-P INTERFACE UMP DEPT Keara Bradley Social History Tobacco Use Types Packs/Day Years Used Date Smoking Tobacco: Never Assessed Comments Yes Sex and Gender Information Value Date Recorded Sex Assigned at Female 05/26/2020 8:38 AM CDT Legal Sex Female 3:36 AM BLUEPRINT TRIMMER Gender Identity Female 05/26/2020 8:38 AM CDT Sexual Orientation Straight 05/26/2020 8: 38 AM CDT documented as of this encounter Progress Notes * Keara Bradley - 09/27/2011 10:30 AM CDT Embedded Engineer: Keara Bradley Status: Amended, Final Encounter: 2011-09-27 10:30:00.000 Type: FM Ultrasound Active Problems Care Coordinated By; Tier 1 5-4-12. US 2nd & 3rd Trimester Ultrasound Report Primary MD: Dr Mendieta Vp Home Health: Keara Bradley Indications: recheck head,heart and outflow tracts P: 0 Machine: Classana 5 Pro FHR: 128 bpm Fluid:Normal Placenta [...] By: Rodolfo Akins ; 10/03/2011 9:44 AM BLUEPRINT TRIMMER. Signature Signed By: Keara Bradley ; 09/27/2011 11:10 AM BLUEPRINT TRIMMER. Signed By: Rodolfo Akins M.D.; 10/03/2011 9:44 AM BLUEPRINT TRIMMER. PRINT TRIMMER PRINT TRIMMER documented in this encounter Plan of Treatment Not on file documented as of this encounter Visit Diagnoses Not on filedocumented in this encounter Care Teams Vascular Technologist Sonographer Relationship Specialty Start Date End Date Clinic, [facility] [place] [address] [place] [address] PCP - General 12/27/10 02/10/12 [place] [address] [place] [address] PCP - General Family Practice 02/11/12 07/26/18 Raffy Frye MD [address] [facility] [place] [address] PCP - General Internal Medicine 07/27/18 Raffy Frye MD [address] [place] [address] [place] [address] Assigned PCP 07/06/18 02/25/22 Raffy Frye MD [address] [facility] [place] [address] Assigned PCP 05/07/22 07/03/23 documented as of this encounter
--- OUTSIDE RECORDS SUMMARY | 2024-01-15 12:04 | XMS_ITS | Referral Summary ---
Author Organization [place] Address [address] [place] [address] Care Team Providers Care Horizontal Boring Mill Operator Name Role Phone Zoey Dailey MD Primary [...] call - spoke to pt, moved to [place] and seeing a provider in a different [...] AM CDT Legal Sex Female 3:36 AM PREPARATION CENTER COORDINATOR Gender Identity Female 05/26/2020 8:38 AM CDT [...] HPV Source SurePath 06/01/2020 5:00 PM CDT [facility] HPV 16 DNA Negative NEG^Nega tive 06/05/2020 4:02 PM CDT [facility] HPV 18 DNA Negative NEG^Nega tive 06/05/2020 4:02 PM CDT [facility] Other HR HPV Positive(A) NEG^Nega tive 06/05/2020 4:02 PM CDT [facility] Final Diagnosis This patient's sample is positive for other HR HPV DNA (types 31, 33, 35, 39, 45, 51, 52, 56, 58, 59, 66 or 68), not HPV 16 or HPV 18 DNA. This result requires clinical correlation with concurrent cytology findings. 06/05/2020 4:02 PM CDT [facility] Comment: This test was developed and its performance characteristics determined by the [facility], Molecular Diagnostics Laboratory. It has not been [...] Description Cervical Cells 06/01/2020 5:00 PM CDT [facility] Cervical Cells 06/01/2020 5: 22 PM CDT 06/01/2020 5:27 PM CDT Zoey Dailey MD LAB - BLOOD ORDERABL ES Final Result [facility] [address] [place] [address] [address] * Pap imaged thin layer screen with HPV - recommended age 30 - 65 years (select HPV order below) (06/01/2020 5:00 PM CDT) PAP NIL COPATH Copath Report Patient Name: JACKIE DUCKWORTH MR#: [id number] Specimen #: [id number] Collected: 06/01/2020 Received: 06/03/2020 Reported: 06/04/2020 12:26 [...] adenocarcinomas or other cancers. COLLECTION SITE: Client: ??[facility] Location: [facility] ([facility]) The technical component of this testing was completed at the [facility], with the professional component performed at the [facility], [address] [place] [phone] ([phone]) LACIE Cytologic material (specimen) 06/01/2020 5:00 PM CDT 06/03/2020 11:44 AM CDT us Zoey Dailey MD LAB - OPTIME CLINICA L SPECIMEN Final Result [facility] * HIV Ag/Ab Screen [place] [facility] (07/20/2011 3:33 PM CDT) HIV Antigen/Antibo dy Negative UMP HISTORICAL RESULTS 07/20/2011 3:33 PM CDT 07/20/2011 3:33 PM CDT us Stephanie Mendieta MD LAB - [facility] Edited [facility]MP HISTORICAL RESULTS from Last 3 Months or Most Recently Relevant to Health Maintenance Insurance [facility] INDIVIDUAL FAMILY PLANS Care Teams Horizontal Boring Mill Operator Relationship Specialty Start Date End Date Zoey Dailey MD [address] [place] [address] [place] M[place] [phone] PCP - General Internal Medicine 07/27/18
--- OUTSIDE RECORDS SUMMARY | 2024-01-15 12:04 | XMS_ITS | Encounter Summary ---
Author Organization [facility] Address [address] [place] [address] Care Team Providers Care Tool Planner Name Role Phone Clinic, [facility] [place] Primary Care Pr ovider Stephanie Mendieta MD Primary Care Provider +1- [phone] Raffy Frye MD Primary Care Provid er Raffy Frye MD Unavailable +1- [phone] Raffy Frye MD Unavailable +1- [phone] Encounter Details Date Type Department Care Team (Late st Contact Info) Description 01/10/2012 Office Visit-P INTERFACE P DEPT Stephanie Mendieta MD [address] [place] [id number] Social History Tobacco Use Types Packs/Day Years Used Date Smoking Tobacco: Never Assessed Comments Yes Sex and Gender Information Value Date Recorded Sex Assigned at Female 05/26/2020 8:38 AM CDT Legal Sex Female 3:36 AM TEMPERING KILN TENDER Gender Identity Female 05/26/2020 8:38 AM CDT Sexual Orientation Straight 05/26/2020 8: 38 AM CDT documented as of this encounter Progress Notes * Stephanie Mendieta MD - 01/10/2012 1:20 PM CDT Environmental Programs Specialist: Stephanie Mendieta Status: Final Encounter: 2012-01-10 13:20:00.000 Type: FM Visit Reason For Visit Patient presents for check up. Allergy List reviewed: Current Immunizations reviewed: Up to date Patient has had flu shot at [facility] on 01/04/12 Medication list reviewed with patient [...] Social Hx: She is currently living in [place] with her family. She is in a healthy relationship with her son's father and she feels safe in the relationship. 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 She has a loving, supportive family. RISK [...] By: Stephanie Mendieta M.D.,Resident; 02/01/2012 8:14 PM TEMPERING KILN TENDER. Signed By: Meenakshi Callaway MD; 02/07/2012 2:48 PM TEMPERING KILN TENDER. ERING KILN TENDER ERING KILN TENDER ERING KILN TENDER ERING KILN TENDER ERING KILN TENDER ERING KILN TENDER ERING KILN TENDER ERING KILN TENDER documented in this encounter Plan of Treatment Not on file documented as of this encounter Visit Diagnoses Not on filedocumented in this encounter Care Teams Tool Planner Relationship Specialty Start Date End Date Clinic, [facility] [address] [place] [address] PCP - General 12/27/10 02/10/12 [place] [address] [place] [address] PCP - General Family Practice 02/11/12 07/26/18 Raffy Frye MD [address] [place] [address] [place] [address] PCP - General Internal Medicine 07/27/18 Raffy Frye MD [address] [place] [address] [place] [address] Assigned PCP 07/06/18 02/25/22 Raffy Frye MD [address] [place] [address] [place] [address] Assigned PCP 05/07/22 07/03/23 documented as of this encounter
--- OUTSIDE RECORDS SUMMARY | 2024-01-15 12:04 | XMS_ITS | Encounter Summary ---
Author Organization [facility] Address [address] [place] [address] Care Team Providers Care Wool Fleece Grader Name Role Phone Clinic, [facility] [place] Primary Care Pr ovider Stephanie Mendieta MD Primary Care Provider +1- [phone] Raffy Frye MD Primary Care Provid er Raffy Frye MD Unavailable + [phone] Raffy Frye MD Unavailable +1- [phone] Encounter Details Date Type Department Care Team (Late st Contact Info) Description 08/23/2011 Office Visit-P INTERFACE UMP DEPT Keara Bradley Social History Tobacco Use Types Packs/Day Years Used Date Smoking Tobacco: Never Assessed Comments Yes Sex and Gender Information Value Date Recorded Sex Assigned at Female 05/26/2020 8:38 AM CDT Legal Sex Female 3:36 AM FIRE SAFETY INSPECTOR Gender Identity Female 05/26/2020 8:38 AM CDT Sexual Orientation Straight 05/26/2020 8: 38 AM CDT documented as of this encounter Progress Notes * Keara Bradley - 08/23/2011 10:30 AM CDT Senior Microsoft Net Developer: Keara Bradley Status: Amended, Final Encounter: 2011-08-23 10:30:00.000 Type: FM Ultrasound Active Problems Care Coordinated By; Tier 1 5-4-12. US 2nd & 3rd Trimester Ultrasound Report Primary MD: Dr Mendieta Slot Operations Director: Keara Bradley Indications: survey P: 0 Machine: [employer] 5 Pro FHR: 140 bpm Fluid:Normal Placenta [...] By: Rodolfo Akins ; 09/02/2011 1:56 PM FIRE SAFETY INSPECTOR. Signature Signed By: Kear[facility] Bradley ; 08/23/2011 11:43 AM FIRE SAFETY INSPECTOR. Signed By: Rodolfo Akins M.D.; 09/02/2011 1:56 PM FIRE SAFETY INSPECTOR. SAFETY INSPECTOR SAFETY INSPECTOR documented in this encounter Plan of Treatment Not on file documented as of this encounter Visit Diagnoses Not on filedocumented in this encounter Care Teams Wool Fleece Grader Relationship Specialty Start Date End Date Clinic, [address] [address] PCP - General 12/27/10 02/10/12 [place] [address] [place] [address] PCP - General Family Practice 02/11/12 07/26/18 Raffy Frye MD [facility] [place] [address] PCP - General Internal Medicine 07/27/18 Raffy Frye MD [address] [place] [address] [place] [address] Assigned PCP 07/06/18 02/25/22 Raffy Frye MD [facility] [place] [address] Assigned PCP 05/07/22 07/03/23 documented as of this encounter
--- OUTSIDE RECORDS SUMMARY | 2024-01-15 12:04 | XMS_ITS | Clinical Summary ---
[facility] Organization [facility] Address [address] [place] [address] Care Team Providers Care Metalizing Machine Operator Automatic Name Role Phone Clinician, Not Found MD Primary Care Provider Un available Source Comments You are receiving this document as you are listed as the primary care provider,follow-up provider, or the patient has been referred to you for consultation.This is in compliance with the Medicare andKe[facility] Private Hospitalcaid EHR Incentive Program,which states Providers who [...] 62.1 kg (137 lb) 02/01/2016 11:00 AM RN CARDIAC CATH Height 162.6 cm (5' 4) 12/23/2010 10:15 [...] age to complete this topic Care Teams Metalizing Machine Operator Automatic Relationship Specialty Start Date End Date Clinician, Not Found, [place] [address] PCP - General 12/18/15
--- OUTSIDE RECORDS SUMMARY | 2024-01-15 12:04 | XMS_ITS | Clinical Summary ---
Author Organization [facility] Address [address] [place] [address] Care Team Providers Care Wafer Line Worker Name Role Phone Zoey Dailey MD Primary [...] call - spoke to pt, moved to [place] and seeing a provider in a different [...] AM CDT Legal Sex Female 3:36 AM SERVER CASHIER Gender Identity Female 05/26/2020 8:38 AM CDT [...] HPV Source SurePath 06/01/2020 5:[address] [facility] HPV 16 DNA Negative NEG^Nega tive 06/05/2020 4:02 PM CDT [facility] HPV 18 DNA Negative NEG^Nega tive 06/05/2020 4:02 PM CDT [facility] Other HR HPV Positive(A) NEG^Nega tive 06/05/2020 4:02 PM CDT [facility] Final Diagnosis This patient's sample is positive for other HR HPV DNA (types 31, 33, 35, 39, 45, 51, 52, 56, 58, 59, 66 or 68), not HPV 16 or HPV 18 DNA. This result requires clinical correlation with concurrent cytology findings. 06/05/2020 4:02 PM CDT [facility] Comment: This test was developed and its performance characteristics determined by the [facility], Molecular Diagnostics Laboratory. It has not been [...] Description Cervical Cells 06/01/2020 5:[address] [facility] Cervical Cells 06/01/2020 5: 22 PM CDT 06/01/2020 5:27 PM CDT Zoey Dailey MD LAB - BLOOD ORDERABL ES Final Result [place] [id number] [place] [address] [address] * Pap imaged thin layer screen with HPV - recommended age 30 - 65 years (select HPV order below) (06/01/2020 5:00 PM CDT) PAP CAITLIN Russell Report Patient Name: ALLIE DUCKWORTH MR#: [id number] Specimen #: [id number] Collected: 06/01/2020 Received: 06/03/2020 Reported: 06/04/2020 12:26 [...] adenocarcinomas or other cancers. COLLECTION SITE: Client: ??[facility] Location: [facility] ([facility]) The technical component of this testing was completed at the [facility], with the professional component performed at the [facility], [address] [place] [phone] ([phone]) LACIE Cytologic material (specimen) 06/01/2020 5:00 PM CDT 06/03/2020 11:44 AM CDT us Zoey Dailey MD LAB - OPTIME CLINICA L SPECIMEN Final Result [facility] * HIV Ag/Ab Screen [place] ([facility]) (07/20/2011 3:33 PM CDT) HIV Antigen/Antibo dy Negative [facility]MP HISTORICAL RESULTS 07/20/2011 3:33 PM CDT 07/20/2011 3:33 PM CDT us Stephanie Mendieta MD LAB - [facility] Edited [facility] HISTORICAL RESULTS from Last 3 Months or Most Recently Relevant to [place] [address] [facility] INDIVIDUAL FAMILY PLANS Care Teams Wafer Line Worker Relationship Specialty Start Date End Date Zoey Dailey MD [address] [place] [address] [place] [address] PCP - General Internal Medicine 07/27/18
--- OUTSIDE RECORDS SUMMARY | 2024-01-15 12:04 | XMS_ITS | Clinical Summary ---
Author Organization [facility] Address [place], [place] [address] Care Team Providers Care Leak Detection Engineer Name Role Phone Jose Daniel, [facility] Primary Care Provider Un available Allergies Active [...] Department Care Team Description 11/17/2023 Nurse Triage [facility] [address] [facility] [address] [place] [address] Keila Roberto MD Questions 11/17/2023 Telephone [facility] [address] [facility] [address] [place] [address] Keila Roberto MD Error-please disregard 11/15/2023 6:50 PM CDT Ancillary Procedure [facility] [address] [place] [address] 11/15/2023 6:15 PM CDT Office Visit [facility] [address] [place] [phone] Keila Roberto MD Foot Injury 11/15/2023 Travel [...] lb 1.6 oz) 04/13/2019 8:28 P M DIRECTOR CLINICAL PHARMACOLOGY Height 162.6 cm (5' 4) 04/13/2019 8:28 PM DIRECTOR CLINICAL PHARMACOLOGY Body Mass Index 23.88 04/13/2019 8:28 PM DIRECTOR CLINICAL PHARMACOLOGY Plan of Treatment Health Maintenance Due Date [...] HPV HIGH RISK Routine 04/21/2023 12:00 PM DIRECTOR CLINICAL PHARMACOLOGY from Last 3 Months or Most Recently [...] E Negative Negative 11/15/2023 6:46 PM CDT [facility] Urine URINE SPECIMEN / Unknown Non-Blood / Unknown 11/15/2023 6:40 PM CDT 11/15/2023 6:40 PM CDT Keila Roberto MD URINE [facility] [address], [address] [place] [address] * HPV HIGH RISK (04/21/2023 12:00 PM DIRECTOR CLINICAL PHARMACOLOGY) TYPE 16 Negative Negative 04/26/2023 2:25 PM DIRECTOR CLINICAL PHARMACOLOGY [facility]AL LABORAT[facility] TYPE 18 Negative Negative 04/26/2023 2:25 PM DIRECTOR CLINICAL PHARMACOLOGY [facility] TRAL LABORAT[facility] OTHER HIGH RISK TYPES Negative Negative 04/26/2023 2:25 PM DIRECTOR CLINICAL PHARMACOLOGY [facility] Other (Cervical) 04/21/2023 12:00 PM DIRECTOR CLINICAL PHARMACOLOGY 04/25/2023 8:54 AM DIRECTOR CLINICAL PHARMACOLOGY Narrative [facility] - 04/26/2023 2:25 PM DIRECTOR CLINICAL PHARMACOLOGY HPV types 16, 18, 31, 33, 35, 39, 45, 51, 52, 56, 58, 59, 66 and 68 DNA were undetectable or below the pre-set threshold. Methodology: Kassandra Alexandra 4800 HPV Test Juany Myers NP [facility]Y [facility] [address] [place] [address], from Last 3 Months or Most Recently Relevant to Health Maintenance Care Teams Leak Detection Engineer Relationship Specialty Start Date End Date [facility]ancy Sky [facility] PCP - General 04/13/19
--- OUTSIDE RECORDS SUMMARY | 2024-01-15 12:04 | XMS_ITS | Encounter Summary ---
Author Organization [place] Address [address] [place] [address] Care Team Providers Care Hospitality Job Titles Name Role Phone Clinic, [facility] [place] Primary Care Pr ovider Stephanie Mendieta MD Primary Care Provider +1- [phone] Raffy Frye MD Primary Care Provid er Raffy Frye MD Unavailable + [phone] Raffy Frye MD Unavailable + [phone] Encounter Details Date Type Department Care Team (Late st Contact Info) Description 10/18/2011 Office Visit-UMP INTERFACE UMP DEPT Unknown, Provider Social History Tobacco Use Types Packs/Day Years Used Date Smoking Tobacco: Never Assessed Comments Yes Sex and Gender Information Value Date Recorded Sex Assigned at Female 05/26/2020 8:38 AM CDT Legal Sex Female 3:36 AM PIPE CREW FOREMAN Gender Identity Female 05/26/2020 8:38 AM CDT Sexual Orientation Straight 05/26/2020 8: 38 AM CDT documented as of this encounter Progress Notes * Unknown, Provider - 10/18/2011 1:06 PM CDT Pusher Runner: Ganesh Flores Status: Signed Encounter: 2011-10-18 13:06:00.000 Type: PCC Chart Note sent records to L&D--leora 10-18-11 Electronically signed by:Ganesh Flores Oct 18 2011 1:07PM PIPE CREW FOREMAN documented in this encounter Plan of Treatment Not on file documented as of this encounter Visit Diagnoses Not on filedocumented in this encounter Care Teams Hospitality Job Titles Relationship Specialty Start Date End Date Clinic, [facility] [place] [address] [place] [address] PCP - General 12/27/10 02/10/12 [place] [address] [place] [address] PCP - General Family Practice 02/11/12 07/26/18 Raffy Frye MD [address] [facility] [place] [address] PCP - General Internal Medicine 07/27/18 Raffy Frye MD [address] [facility] [place] [address] Assigned PCP 07/06/18 02/25/22 Raffy Frye MD [address] [facility] [place] [address] Assigned PCP 05/07/22 07/03/23 documented as of this encounter
== END 2024-01-12 09:14 | disposition home or self-care (01) ==
LOC: NFLDREF 01-15 12:02
PROVIDERS: PCP Family Medicine; Referring Provider Family Medicine; Visit Provider Registered Nurse
DX: O09.291 Supervision of pregnancy with other poor reproductive or obstetric history, first trimester (principal)
CPT/HCPCS: 84702

== ENCOUNTER 2024-02-02 07:14 | Outpatient (CLI) | payer OTHER, SELFPAY ==
--- NOTE | 2024-02-02 07:15 | CRLHL7_ITS ---
For Patients: As a result of the Cures Act, medical imaging exams and procedure reports are released immediately into your electronic medical record. You may view this report before your referring provider. If you have questions, please contact your health care provider. INDICATION: First trimester scan, establish dates. COMPARISON: None. TECHNIQUE: Real-time ibarra-scale imaging of the pelvis was performed. FINDINGS: Sonographic imaging demonstrates a single living intrauterine gestation. The embryo demonstrates a regular cardiac rate measuring 154 beats per minute. The embryo`s crown-rump length measurement of 1.4 cm corresponds to a gestational age of 7 weeks 4 days with a sonographic due date of 09/16/2024. There is a normal-appearing yolk sac. There are no gross abnormalities noted within the embryo at this early state of development. The gestational sac has a normal appearance. There is an inferior perigestational hemorrhage measuring 1.2 x 1.4 x 0.8 cm. The amount of fluid within the sac appears appropriate for gestational age. The cervix is closed. The myometrium appears normal. Simple right ovarian cyst is present measuring 3.4 x 3.3 x 3.1 cm. Normal left ovary. There are no suspicious fluid collections noted in the cul-de-sac. IMPRESSION: Single living intrauterine with sonographic gestational age 7 weeks 4 days and sonographic due date of 09/16/2024. Small inferior subchorionic hemorrhage measuring 1.2 x 1.4 x 0.8 cm. Simple right ovarian cyst measuring 3.4 cm. Dictated by Darin Flynn MD @ 02/02/2024 12:22:25 PM (Electronically Signed)
--- OUTSIDE RECORDS SUMMARY | 2024-02-02 07:16 | XMS_ITS | Encounter Summary ---
Author Organization [facility] Address [address] [place] [address] Care Team Providers Care Acetylene Torch Operator Name Role Phone Clinic, [facility] [place] [facility] Pr ovider Stephanie Mendieta MD Primary Care Provider +1- [phone] Raffy Frye MD Primary Care Provid er Raffy Frye MD Unavailable + [phone] Raffy Frye MD Unavailable + [phone] Encounter Details Date Type Department Care Team (Late st Contact Info) Description 10/18/2011 Office Visit-[facility] INTERFACE [facility] DEPT Unknown, Provider Social History Tobacco Use Types Packs/Day Years Used Date Smoking Tobacco: Never Assessed Comments Yes Sex and Gender Information Value Date Recorded Sex Assigned at Female 05/26/2020 8:38 AM CDT Legal Sex Female 3:36 AM ELECTRONIC TECHNICIAN Gender Identity Female 05/26/2020 8:38 AM CDT Sexual Orientation Straight 05/26/2020 8: 38 AM CDT documented as of this encounter Progress Notes * Unknown, Provider - 10/18/2011 1:06 PM CDT Supervisor Finish End: Ganesh Flores Status: Signed Encounter: 2011-10-18 13:06:00.000 Type: PCC Chart Note sent records to L&D--leora 10-18-11 Electronically signed by:Ganesh Flores Oct 18 2011 1:07PM ELECTRONIC TECHNICIAN documented in this encounter Plan of Treatment Not on file documented as of this encounter Visit Diagnoses Not on filedocumented in this encounter Care Teams Acetylene Torch Operator Relationship Specialty Start Date End Date Clinic, [facility] [place] [address] [place] [address] PCP - General 12/27/10 02/10/12 [place] [address] [place] [address] PCP - General Family Practice 02/11/12 07/26/18 Raffy Frye MD [address] [facility] [place] [address] PCP - General Internal Medicine 07/27/18 Raffy Frye MD [address] [facility] [place] [address] Assigned PCP 07/06/18 02/25/22 Raffy Frye MD [address] [facility] [place] [address] Assigned PCP 05/07/22 07/03/23 documented as of this encounter
--- OUTSIDE RECORDS SUMMARY | 2024-02-02 07:16 | XMS_ITS | Encounter Summary ---
Author Organization [facility] Address [address] [place] [address] Care Team Providers Care Tumbler Plater Name Role Phone Clinic, [facility] [place] Primary Care Pr ovider Stephanie Mendieta MD Primary Care Provider +1- [phone] Raffy Frye MD Primary Care Provid er Raffy Frye MD Unavailable + [phone] Raffy Frye MD Unavailable + [phone] Encounter Details Date Type Department Care Team (Late st Contact Info) Description 09/27/2011 Office Visit-P INTERFACE [facility] DEPT Keara Bradley Social History Tobacco Use Types Packs/Day Years Used Date Smoking Tobacco: Never Assessed Comments Yes Sex and Gender Information Value Date Recorded Sex Assigned at Female 05/26/2020 8:38 AM CDT Legal Sex Female 3:36 AM EMPLOYEE BENEFITS DIRECTOR Gender Identity Female 05/26/2020 8:38 AM CDT Sexual Orientation Straight 05/26/2020 8: 38 AM CDT documented as of this encounter Progress Notes * Keara Bradley - 09/27/2011 10:30 AM CDT Risk Investigator: Keara Bradley Status: Amended, Final Encounter: 2011-09-27 10:30:00.000 Type: FM Ultrasound Active Problems Care Coordinated By; Tier 1 5-4-12. US 2nd & 3rd Trimester Ultrasound Report Primary MD: Dr Mendieta Lockstitch Zipper Setter: Keara Bradley Indications: recheck head,heart and outflow tracts P: 0 Machine: [id number] Pro FHR: 128 bpm Fluid:Normal Placenta [...] By: Rodolfo Akins ; 10/03/2011 9:44 AM EMPLOYEE BENEFITS DIRECTOR. Signature Signed By: Keara Bradley ; 09/27/2011 11:10 AM EMPLOYEE BENEFITS DIRECTOR. Signed By: Rodolfo Akins M.D.; 10/03/2011 9:44 AM EMPLOYEE BENEFITS DIRECTOR. OYEE BENEFITS DIRECTOR OYEE BENEFITS DIRECTOR documented in this encounter Plan of Treatment Not on file documented as of this encounter Visit Diagnoses Not on filedocumented in this encounter Care Teams Tumbler Plater Relationship Specialty Start Date End Date Clinic, [facility] [place] [address] [place] [address] PCP - General 12/27/10 02/10/12 [place] [address] [place] [address] PCP - General Family Practice 02/11/12 07/26/18 Raffy Frye MD [address] [facility] [place] [address] PCP - General Internal Medicine 07/27/18 Raffy Frye MD [address] [place] [address] [place] [address] Assigned PCP 07/06/18 02/25/22 Raffy Frye MD [address] [facility] [place] [address] Assigned PCP 05/07/22 07/03/23 documented as of this encounter
--- OUTSIDE RECORDS SUMMARY | 2024-02-02 07:16 | XMS_ITS | Encounter Summary ---
Author Organization [facility] Address [address] [place] [address] Care Team Providers Care Php Mysql Web Developer Name Role Phone Clinic, [facility] [place] Primary [facility] Pr ovider Stephanie Mendieta MD Primary Care Provider +1- [phone] Raffy Frye MD Primary Care Provid er Raffy Frye MD Unavailable + [phone] Raffy Frye MD Unavailable +1- [phone] Encounter Details Date Type Department Care Team (Late st Contact Info) Description 08/23/2011 Office Visit-P INTERFACE [facility]MP DEPT Keara Bradley Social History Tobacco Use Types Packs/Day Years Used Date Smoking Tobacco: Never Assessed Comments Yes Sex and Gender Information Value Date Recorded Sex Assigned at Female 05/26/2020 8:38 AM CDT Legal Sex Female 3:36 AM 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 US 2nd & 3rd Trimester Ultrasound Report Primary MD: Dr Mendieta Transmission Maintenance Supervisor: Keara Bradley Indications: survey P: 0 Machine: [id number] Pro FHR: 140 bpm Fluid:Normal Placenta [...] By: Rodolfo Akins ; 09/02/2011 1:56 PM COMPUTERIZED MACHINE FABRIC CUTTER. Signature Signed By: Keara Bradley ; 08/23/2011 11:43 AM COMPUTERIZED MACHINE FABRIC CUTTER. Signed By: Rodolfo Akins M.D.; 09/02/2011 1:56 PM COMPUTERIZED MACHINE FABRIC CUTTER. UTERIZED MACHINE FABRIC CUTTER UTERIZED MACHINE FABRIC CUTTER documented in this encounter Plan of Treatment Not on file documented as of this encounter Visit Diagnoses Not on filedocumented in this encounter Care Teams Php Mysql Web Developer Relationship Specialty Start Date End Date Clinic, [address] [address] PCP - General 12/27/10 02/10/12 [place] [address] [place] [address] PCP - General Family Practice 02/11/12 07/26/18 Raffy Frye MD [facility] [place] [address] PCP - General Internal Medicine 07/27/18 Raffy Frye MD [address] [place] [address] [place] [address] Assigned PCP 07/06/18 02/25/22 Raffy Frye MD [facility] [place] [address] Assigned PCP 05/07/22 07/03/23 documented as of this encounter
--- OUTSIDE RECORDS SUMMARY | 2024-02-02 07:16 | XMS_ITS | Clinical Summary ---
Author Organization [facility] Address [place], [place] [address] Care Team Providers Care Hospital Cleaner Name Role Phone Jose Daniel, [facility] Primary Care Provider Un available Allergies Active [...] Department Care Team Description 11/17/2023 Nurse Triage [facility] [address] [facility] [address] [place] [address] Keila Roberto MD Questions 11/17/2023 Telephone [facility] [address] [facility] [address] [place] [address] Keila Roberto MD Error-please disregard 11/15/2023 6:50 PM CDT Ancillary Procedure [facility] [address] [place] [address] 11/15/2023 6:15 PM CDT Office Visit [facility] [address] [place] [phone] Keila Roberto MD Foot Injury 11/15/2023 Travel [...] 72 11/15/2023 6:28 PM CDT Temperature 36.2 C (97.2 F) 11/15/2023 6:28 PM CDT Respiratory Rate 16 11/15/2023 6:28 PM CDT Oxygen Saturation 99% 11/15/2023 6:28 PM CDT Inhaled Oxygen Concentration - - Weight 63.1 kg (139 lb 1.6 oz) 04/13/2019 8:28 P M ACTION INSTALLER Height 162.6 cm (5' 4) 04/13/2019 8:28 PM ACTION INSTALLER Body Mass Index 23.88 04/13/2019 8:28 PM ACTION INSTALLER Plan of Treatment Health Maintenance Due Date [...] HPV HIGH RISK Routine 04/21/2023 12:00 PM ACTION INSTALLER from Last 3 Months or Most Recently Relevant to Health Maintenance Results * XR ANKLE 3 VIEWS LEFT (11/15/2023 6:58 PM CDT) Anatomical Region Laterality Modality ANKLES, ANKLE L Computed Radiogr aphy 11/15/2023 7:00 PM CDT Narrative 11/15/2023 7:00 PM CDT For Patients: As a result of the Cures Act, medical imaging exams and procedure reports are released immediately into your electronic medical record. You may view this report before your referring provider. If you have questions, please contact your health [...] E Negative Negative 11/15/2023 6:46 PM CDT [facility] Urine URINE SPECIMEN / Unknown Non-Blood / Unknown 11/15/2023 6:40 PM CDT 11/15/2023 6:40 PM CDT Keila Roberto MD URINE [facility] [address], [address] [place] [address] * HPV HIGH RISK (04/21/2023 12:00 PM ACTION INSTALLER) TYPE 16 Negative Negative 04/26/2023 2:25 PM ACTION INSTALLER [facility] TYPE 18 Negative Negative 04/26/2023 2:25 PM ACTION INSTALLER [facility] OTHER HIGH RISK TYPES Negative Negative 04/26/2023 2:25 PM ACTION INSTALLER [facility] Other (Cervical) 04/21/2023 12:00 PM ACTION INSTALLER 04/25/2023 8:54 AM ACTION INSTALLER Narrative [facility] - 04/26/2023 2:25 PM ACTION INSTALLER HPV types 16, 18, 31, 33, 35, 39, 45, 51, 52, 56, 58, 59, 66 and 68 DNA were undetectable or below the pre-set threshold. Methodology: Kassandra Alexandra 4800 HPV Test Juany Myers NP MICROBIOLOGY Performing Organization Address City/[facility]/ZIP Co de Phone Number [facility] [address] [place] [address], from Last 3 Months or Most Recently Relevant to Health Maintenance Care Teams Hospital Cleaner Relationship Specialty Start Date End [facility] - General 04/13/19
--- OUTSIDE RECORDS SUMMARY | 2024-02-02 07:16 | XMS_ITS | Clinical Summary ---
Author Organization [facility] Address [address] [place] [address] Care Team Providers Care Supervisor Composing Room Name Role Phone Clinician, Not Found MD Primary Care Provider Un available Source Comments You are receiving this document as you are listed as the primary care provider,follow-up provider, or the patient has been referred to you for consultation.This is in compliance with the Medicare and[facility] EHR Incentive Program,which states Providers who transition [...] 86 07/16/2018 10:19 AM CDT Temperature 36.8 C (98.2 F) 07/16/2018 10:19 AM CDT Respiratory Rate 16 07/16/2018 10:19 AM CDT Oxygen Saturation 99% 07/16/2018 10:19 AM CDT Inhaled Oxygen Concentration - - Weight 62.1 kg (137 lb) 02/01/2016 11:00 AM DRUM WORKER Height 162.6 cm (5' 4) 12/23/2010 10:15 [...] age to complete this topic Care Teams Supervisor Composing Room Relationship Specialty Start Date End Date Clinician, Not Found, [place] [address] PCP - General 12/18/15
--- OUTSIDE RECORDS SUMMARY | 2024-02-02 07:16 | XMS_ITS | Encounter Summary ---
Author Organization [facility] Address [address] [place] [address] Care Team Providers Care Cranberry Sorter Name Role Phone Clinic, [facility] [place] Primary Care Pr ovider Stephanie Mendieta MD Primary Care Provider +1- [phone] Raffy Frye MD Primary Care Provid er Raffy Frye MD Unavailable +- [phone] Raffy Frye MD Unavailable +1- [phone] Encounter Details Date Type Department Care Team (Late st Contact Info) Description 01/10/2012 Office Visit-P INTERFACE P DEPT Stephanie Mendieta MD [address] [place] [address] [id number] Social History Tobacco Use Types Packs/Day Years Used Date Smoking Tobacco: Never Assessed Comments Yes Sex and Gender Information Value Date Recorded Sex Assigned at Female 05/26/2020 8:38 AM CDT Legal Sex Female 3:36 AM MULTIFOCAL BUTTON GRINDER Gender Identity Female 05/26/2020 8:38 AM CDT Sexual Orientation Straight 05/26/2020 8: 38 AM CDT documented as of this encounter Progress Notes * Stephanie Mendieta MD - 01/10/2012 1:20 PM CDT Pension Agent: Stephanie Mendieta Status: Final Encounter: 2012-01-10 13:20:00.000 Type: FM Visit Reason For Visit Patient presents for check up. Allergy List reviewed: Current Immunizations reviewed: Up to date Patient has had flu shot at [facility] on 01/04/12 Medication list reviewed with patient [...] Social Hx: She is currently living in [place] with her family. She is in a healthy relationship with her son's father and she feels safe in the relationship. 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 She has a loving, supportive family. RISK [...] By: Stephanie Mendieta M.D.,Resident; 02/01/2012 8:14 PM MULTIFOCAL BUTTON GRINDER. Signed By: Meenakshi Callaway MD; 02/07/2012 2:48 PM MULTIFOCAL BUTTON GRINDER. IFOCAL BUTTON GRINDER IFOCAL BUTTON GRINDER IFOCAL BUTTON GRINDER IFOCAL BUTTON GRINDER IFOCAL BUTTON GRINDER IFOCAL BUTTON GRINDER IFOCAL BUTTON GRINDER IFOCAL BUTTON GRINDER documented in this encounter Plan of Treatment Not on file documented as of this encounter Visit Diagnoses Not on filedocumented in this encounter Care Teams Cranberry Sorter Relationship Specialty Start Date End Date Clinic, [facility] [address] [place] [address] PCP - General 12/27/10 02/10/12 [place] [address] [place] [address] PCP - General Family Practice 02/11/12 07/26/18 Raffy Frye MD [address] [place] [address] [place] [address] PCP - General Internal Medicine 07/27/18 Raffy Frye MD [address] [place] [address] [place] [address] Assigned PCP 07/06/18 02/25/22 Raffy Frye MD [address] [place] [address] [place] [address] Assigned PCP 05/07/22 07/03/23 documented as of this encounter
--- OUTSIDE RECORDS SUMMARY | 2024-02-02 07:16 | XMS_ITS | Clinical Summary ---
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 Gender Identity Female 05/26/2020 8:38 AM CDT Sexual Orientation Straight 05/26/2020 8: 38 AM CDT Last Filed Vital Signs Vital Sign Reading Time Taken Comments Blood Pressure 98/62 06/01/2020 4:07 PM CDT Pulse 77 06/01/2020 4:07 PM CDT Temperature 37.4 C (99.3 F) 06/01/2020 4:07 PM CDT Respiratory Rate 18 12/27/2010 7:47 PM CDT [...] HPV Source SurePath 06/01/2020 5:00 PM CDT [facility] HPV 16 DNA Negative NEG^Nega tive 06/05/2020 4:02 PM CDT [facility] HPV 18 DNA Negative NEG^Nega tive 06/05/2020 4:02 PM CDT [facility] Other HR HPV Positive(A) NEG^Be dowell 06/05/2020 4:02 PM CDT [facility] Final Diagnosis This patient's sample is positive for other HR HPV DNA (types 31, 33, 35, 39, 45, 51, 52, 56, 58, 59, 66 or 68), not HPV 16 or HPV 18 DNA. This result requires clinical correlation with concurrent cytology findings. 06/05/2020 4:02 PM CDT [facility] Comment: This test was developed and its performance characteristics determined by the [facility]. It has not been cleared or approved by the FDA. The laboratory is regulated under CLIA as qualified to perform high-complexity testing. This test is used for clinical purposes. It should not be regarded as investigational or for research. (Note) METHODOLOGY: The Kassandra gael 4800 system uses automated extraction, simultaneous amplification of HPV (L1 region) and beta-globin, followed by real time detection of fluorescent labeled HPV and beta globin using specific oligonucleotide probes . The test specifically identifies types HPV 16 DNA and HPV 18 DNA while concurrently detecting the rest of the high risk types (31, 33, 35, 39, 45, 51, 52, 56, 58, 59, 66 or 68). COMMENTS: This test is not intended for use as a screening device for women under age 30 with normal cervical cytology. Results should be correlated with cytologic and histologic findings. Close clinical followup is recommended. Specimen Description Cervical Cells 06/01/2020 5:00 PM CDT [facility] Cervical Cells 06/01/2020 5: 22 PM CDT 06/01/2020 5:27 PM CDT us Zoey Dailey MD LAB - BLOOD ORDERABL ES [facility] Result [facility] [address] [place] [address] [place] [address] [address] * Pap imaged thin layer screen with HPV - recommended age 30 - 65 years (select HPV order below) (06/01/2020 5:00 PM CDT) PAP CAITLIN COPGLORIA Copath Report Patient Name: JACKIE DUCKWORTH MR#: [id number] Specimen #: [id number] Collected: 06/01/2020 Received: 06/03/2020 Reported: 06/04/2020 12:26 Ordering Phy(s): ZOEY DAILEY For improved result formatting, select 'View Enhanced Report Format' under Linked Documents section. SPECIMEN/STAIN PROCESS: Pap imaged thin layer prep screening (Surepath, FocalPoint with guided screening) Pap-Cyto x 1, HPV ordered x 1 SOURCE: Cervical, endocervical Pap imaged thin layer prep screening (Surepath, FocalPoint with guided screening) SPECIMEN ADEQUACY: Satisfactory for evaluation. -Transformation zone component absent. CYTOLOGIC INTERPRETATION: Negative for intraepithelial lesion or malignancy Electronically signed out by: YORDAN Low (ASCP) CLINICAL HISTORY: Intra-Uterine Device, Papanicolaou Test Limitations: Cervical cytology is a screening test with limited sensitivity; regular screening is critical for cancer prevention; Pap tests are primarily effective for the diagnosis/preventi on of squamous cell carcinoma, not adenocarcinomas or other cancers. COLLECTION SITE: Client: [facility] Location: [facility] () The technical component of this testing was completed at the [facility] [employer] [facility], with the professional component performed at the [facility] [employer] [facility], [address] [place] [phone] ([phone]) LACIE Cytologic material (specimen) 06/01/2020 5:00 PM CDT 06/03/2020 11:44 AM CDT Zoey Dailey MD LAB - [facility] SPECIMEN Final Result [facility] * HIV Ag/Ab Screen [facility] (07/20/2011 3:33 PM CDT) HIV Antigen/Antibo dy Negative [facility] HISTORICAL RESULTS 07/20/2011 3:33 PM CDT 07/20/2011 3:33 PM CDT Stephanie Mendieta MD LAB - [facility] Edited [facility] HISTORICAL RESULTS from Last 3 Months or Most Recently Relevant to Health Maintenance Insurance [place] [id number] [facility] INDIVIDUAL FAMILY PLANS Care Teams Technical Internship Relationship Specialty Start Date End Date Zoey Dailey MD [address] [place] [address] [place] [id number] PCP - General Internal Medicine 07/27/18
--- OUTSIDE RECORDS SUMMARY | 2024-02-02 07:16 | XMS_ITS | Referral Summary ---
Author Organization [place] Address [address] [place] [address] Care Team Providers Care Senior Firewall Engineer Name Role Phone Zoey Dailey MD Primary [...] call - spoke to pt, moved to [place] and seeing a provider in a different [...] AM CDT Legal Sex Female 3:36 AM TRAFFIC REPORTER Gender Identity Female 05/26/2020 8:38 AM CDT [...] HPV Source SurePath 06/01/2020 5:00 PM CDT [facility] D[facility] HPV 16 DNA Negative NEG^Nega tive 06/05/2020 4:02 PM CDT [facility] HPV 18 DNA Negative NEG^Nega tive 06/05/2020 4:02 PM CDT [facility] Other HR HPV Positive(A) NEG^Nega tive 06/05/2020 4:02 PM CDT [facility] Final Diagnosis This patient's sample is positive for other HR HPV DNA (types 31, 33, 35, 39, 45, 51, 52, 56, 58, 59, 66 or 68), not HPV 16 or HPV 18 DNA. This result requires clinical correlation with concurrent cytology findings. 06/05/2020 4:02 PM CDT [facility] Comment: This test was developed and its performance characteristics determined by the [facility], Molecular Diagnostics Laboratory. It has not been [...] Description Cervical Cells 06/01/2020 5:00 PM CDT [facility] D[facility] Cervical Cells 06/01/2020 5: 22 PM CDT 06/01/2020 5:27 PM CDT us Zoey Dailey MD LAB - BLOOD ORDERABL ES Final Result [facility] [address] [place] [address] [facility] [address] [address] * Pap imaged thin layer screen with HPV - recommended age 30 - 65 years (select HPV order below) (06/01/2020 5:00 PM CDT) PAP NIL COPATH Copath Report Patient Name: ALLIE DUCKWORTH MR#: [id number] Specimen #: [id number] Collected: 06/01/2020 Received: 06/03/2020 Reported: 06/04/2020 12:26 [...] adenocarcinomas or other cancers. COLLECTION SITE: Client: [facility] Location: [facility] (R) The technical component of this testing was completed at the [facility] [employer] [facility], with the professional component performed at the [facility], [address] [place] [phone] ([phone]) LACIE Cytologic material (specimen) 06/01/2020 5:00 PM CDT 06/03/2020 11:44 AM CDT us Zoey Dailey MD LAB - OPTIME CLINICA L SPECIMEN Final Result COPATH * HIV Ag/Ab Screen [place] [facility] (07/20/2011 3:33 PM CDT) HIV Antigen/Antibo dy Negative [facility]MP HISTORICAL RESULTS 07/20/2011 3:33 PM CDT 07/20/2011 3:33 PM CDT us Stephanie Mendieta MD LAB - [facility] Edited [facility] HISTORICAL RESULTS from Last 3 Months or Most Recently Relevant to [place] [address] [facility] INDIVIDUAL FAMILY PLANS Care Teams Senior Firewall Engineer Relationship Specialty Start Date End Date Zoey Dailey MD [address] [facility] [place] M[place]QUE[place] [id number] PCP - General Internal Medicine 07/27/18
== END 2024-02-02 07:15 | disposition home or self-care (01) ==
LOC: US 07:15
PROVIDERS: PCP Family Medicine; Visit Provider Registered Nurse
DX: Z34.91 Encounter for supervision of normal pregnancy, unspecified, first trimester (principal); O20.9 Hemorrhage in early pregnancy, unspecified; O34.91 Maternal care for abnormality of pelvic organ, unspecified, first trimester; N83.201 Unspecified ovarian cyst, right side; Z3A.01 Less than 8 weeks gestation of pregnancy
CPT/HCPCS: 76817

== ENCOUNTER 2024-02-02 08:19 | Outpatient (CLI) | payer OTHER, SELFPAY ==
--- OUTSIDE RECORDS SUMMARY | 2024-02-02 08:21 | XMS_ITS | Referral Summary ---
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 This result requires clinical correlation with concurrent cytology findings. 06/05/2020 4:02 PM CDT [facility] Comment: This test was developed and its performance characteristics determined by the [facility], Molecular Diagnostics Laboratory. It has not [...] Description Cervical Cells 06/01/2020 5:00 PM CDT [facility] DANIEL Cervical Cells 06/01/2020 5: 22 PM CDT 06/01/2020 5:27 PM CDT us Zoey Dailey MD LAB - BLOOD ORDERABL ES Final Result [facility] [address] [place] [address] [facility] [address] [address] * Pap imaged thin layer screen with HPV - recommended age 30 - 65 years (select HPV order below) (06/01/2020 5:00 PM CDT) PAP NIL COPATH Copath Report Patient Name: ALLIE DUCKWORTH MR#: [id number] Specimen #: [id number] Collected: 06/01/2020 Received: 06/03/2020 Reported: 06/04/2020 12:26 [...] adenocarcinomas or other cancers. COLLECTION SITE: Client: [facility] Location: [facility] (R) The technical component of this testing was completed at the [facility] [employer] [facility], with the professional component performed at the [facility], [address] [place] [phone] ([phone]) LACIE Cytologic material (specimen) 06/01/2020 5:00 PM CDT 06/03/2020 11:44 AM CDT us Zoey Dailey MD LAB - OPTIME CLINICA L SPECIMEN Final Result [facility] * HIV Ag/Ab Screen [place] ([facility]) (07/20/2011 3:33 PM CDT) HIV Antigen/Antibo dy Negative [facility]MP HISTORICAL RESULTS 07/20/2011 3:33 PM CDT 07/20/2011 3:33 PM CDT us Stephanie Mendieta MD LAB - [facility] Edited [facility] HISTORICAL RESULTS from Last 3 Months or Most Recently Relevant to [place] [address] [facility] INDIVIDUAL FAMILY PLANS Care Teams Fruit Dumper Relationship Specialty Start Date End Date Zoey Dailey MD [address] [facility] [place] [id number] PCP - General Internal Medicine 07/27/18
--- OUTSIDE RECORDS SUMMARY | 2024-02-02 08:21 | XMS_ITS | Encounter Summary ---
Author Organization [place] Address [address] [place] [address] Care Team Providers Care Cookie Padder Name Role Phone Clinic, [facility] [place] Primary Care Pr ovider Stephanie Mendieta MD Primary Care Provider +1- [phone] Raffy Frye MD Primary Care Provid er Raffy Frye MD Unavailable +- [phone] Raffy Frye MD Unavailable +1- [phone] Encounter Details Date Type Department Care Team (Late st Contact Info) Description 01/10/2012 Office Visit-P INTERFACE P DEPT Stephanie Mendieta MD [address] [place] [address] [id number] Social History Tobacco Use Types Packs/Day Years Used Date Smoking Tobacco: Never Assessed Comments Yes Sex and Gender Information Value Date Recorded Sex Assigned at Female 05/26/2020 8:38 AM CDT Legal Sex Female 3:36 AM 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 Allergy List reviewed: Current Immunizations reviewed: Up to date Patient has had flu shot at [facility] on 01/04/12 Medication list reviewed with patient [...] Social Hx: She is currently living in [place] with her family. She is in a healthy relationship with her son's father and she feels safe in the relationship. 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 She has a loving, supportive family. RISK [...] By: Stephanie Mendieta M.D.,Resident; 02/01/2012 8:14 PM COMPUTER FIELD TECHNICIAN. Signed By: Meenakshi Callaway MD; 02/07/2012 2:48 PM COMPUTER FIELD TECHNICIAN. UTER FIELD TECHNICIAN UTER FIELD TECHNICIAN UTER FIELD TECHNICIAN UTER FIELD TECHNICIAN UTER FIELD TECHNICIAN UTER FIELD TECHNICIAN UTER FIELD TECHNICIAN UTER FIELD TECHNICIAN documented in this encounter Plan of Treatment Not on file documented as of this encounter Visit Diagnoses Not on filedocumented in this encounter Care Teams Cookie Padder Relationship Specialty Start Date End Date Clinic, [facility] [address] [place] [address] PCP - General 12/27/10 02/10/12 [place] [address] [place] [address] PCP - General Family Practice 02/11/12 07/26/18 Raffy Frye MD [address] [place] [address] [place] [address] PCP - General Internal Medicine 07/27/18 Raffy Frye MD [address] [place] [address] [place] [address] Assigned PCP 07/06/18 02/25/22 Raffy Frye MD [address] [place] [address] [place] [address] Assigned PCP 05/07/22 07/03/23 documented as of this encounter
--- OUTSIDE RECORDS SUMMARY | 2024-02-02 08:21 | XMS_ITS | Clinical Summary ---
[facility] Address [address] [place] [address] Care Team Providers Care Identity Access Management Architect Name Role Phone Clinician, Not Found MD Primary Care Provider Un available Source Comments You are receiving this document as you are listed as the primary care provider,follow-up provider, or the patient has been referred to you for consultation.This is in compliance with the Medicare and[facility] EHR Incentive Program,which states Providers who transition [...] 62.1 kg (137 lb) 02/01/2016 11:00 AM COLD STRIP ROLLER Height 162.6 cm (5' 4) 12/23/2010 10:15 [...] age to complete this topic Care Teams Identity Access Management Architect Relationship Specialty Start Date End Date Clinician, Not Found, [place] [address] PCP - General 12/18/15
--- OUTSIDE RECORDS SUMMARY | 2024-02-02 08:21 | XMS_ITS | Encounter Summary ---
Author Organization [place] Address [address] [place] [address] Care Team Providers Care Postdoctoral Scientist Name Role Phone Clinic, [facility] [place] Primary Care Pr ovider Stephanie Mendieta MD Primary Care Provider +1- [phone] Raffy Frye MD Primary Care Provid er Raffy Frye MD Unavailable + [phone] Raffy Frye MD Unavailable +1- [phone] Encounter Details Date Type Department Care Team (Late st Contact Info) Description 08/23/2011 Office Visit-P INTERFACE UMP DEPT Keara Bradley Social History Tobacco Use Types Packs/Day Years Used Date Smoking Tobacco: Never Assessed Comments Yes Sex and Gender Information Value Date Recorded Sex Assigned at Female 05/26/2020 8:38 AM CDT Legal Sex Female 3:36 AM SCOOP FILLER Gender Identity Female 05/26/2020 8:38 AM CDT Sexual Orientation Straight 05/26/2020 8: 38 AM CDT documented as of this encounter Progress Notes * Keara Bradley - 08/23/2011 10:30 AM CDT Watch Repair Technician: Keara Bradley Status: Amended, Final Encounter: 2011-08-23 10:30:00.000 Type: FM Ultrasound Active Problems Care Coordinated By; Tier 1 5-4-12. US 2nd & 3rd Trimester Ultrasound Report Primary MD: Dr Mendieta Computer Education Professor: Keara Bradley Indications: survey P: 0 Machine: Logentries 5 Pro FHR: 140 bpm Fluid:Normal Placenta [...] By: Rodolfo Akins ; 09/02/2011 1:56 PM SCOOP FILLER. Signature Signed By: Keara Bradley ; 08/23/2011 11:43 AM SCOOP FILLER. Signed By: Rodolfo Akins M.D.; 09/02/2011 1:56 PM SCOOP FILLER. P FILLER P FILLER documented in this encounter Plan of Treatment Not on file documented as of this encounter Visit Diagnoses Not on filedocumented in this encounter Care Teams Postdoctoral Scientist Relationship Specialty Start Date End Date Clinic, [address] [address] PCP - General 12/27/10 02/10/12 [place] [address] [place] [address] PCP - General Family Practice 02/11/12 07/26/18 Raffy Frye MD [facility] [place] [address] PCP - General Internal Medicine 07/27/18 Raffy Frye MD [address] [place] [address] [place] [address] Assigned PCP 07/06/18 02/25/22 Raffy Fyre MD [facility] [place] [address] Assigned PCP 05/07/22 07/03/23 documented as of this encounter
--- OUTSIDE RECORDS SUMMARY | 2024-02-02 08:21 | XMS_ITS | Encounter Summary ---
Author Organization [place] Address [address] [place] [address] Care Team Providers Care Turn Supervisor Name Role Phone Clinic, [facility] [place] Primary Care Pr ovider Stephanie Mendieta MD Primary Care Provider +1- [phone] Raffy Frye MD Primary Care Provid er Raffy Frye MD Unavailable + [phone] Raffy Frye MD Unavailable + [phone] Encounter Details Date Type Department Care Team (Late st Contact Info) Description 09/27/2011 Office Visit-P INTERFACE UMP DEPT Keara Bradley Social History Tobacco Use Types Packs/Day Years Used Date Smoking Tobacco: Never Assessed Comments Yes Sex and Gender Information Value Date Recorded Sex Assigned at Female 05/26/2020 8:38 AM CDT Legal Sex Female 3:36 AM BET TAKER Gender Identity Female 05/26/2020 8:38 AM CDT Sexual Orientation Straight 05/26/2020 8: 38 AM CDT documented as of this encounter Progress Notes * Keara Bradley - 09/27/2011 10:30 AM CDT Taxi Proprietor: Keara Bradley Status: Amended, Final Encounter: 2011-09-27 10:30:00.000 Type: FM Ultrasound Active Problems Care Coordinated By; Tier 1 5-4-12. US 2nd & 3rd Trimester Ultrasound Report Primary MD: Dr Mendieta Fisheries Diver: Keara Bradley Indications: recheck head,heart and outflow tracts P: 0 Machine: VigLink 5 Pro FHR: 128 bpm Fluid:Normal Placenta [...] By: Rodolfo Akins ; 10/03/2011 9:44 AM BET TAKER. Signature Signed By: Keara Bradley ; 09/27/2011 11:10 AM BET TAKER. Signed By: Rodolfo Akins M.D.; 10/03/2011 9:44 AM BET TAKER. TAKER TAKER documented in this encounter Plan of Treatment Not on file documented as of this encounter Visit Diagnoses Not on filedocumented in this encounter Care Teams Turn Supervisor Relationship Specialty Start Date End Date Clinic, [facility] [place] [address] [place] [address] PCP - General 12/27/10 02/10/12 [place] [address] [place] [address] PCP - General Family Practice 02/11/12 07/26/18 Raffy Frye MD [address] [facility] [place] [address] PCP - General Internal Medicine 07/27/18 Raffy Frye MD [address] [place] [address] [place] [address] Assigned PCP 07/06/18 02/25/22 Raffy Frye MD [address] [facility] [place] [address] Assigned PCP 05/07/22 07/03/23 documented as of this encounter
--- OUTSIDE RECORDS SUMMARY | 2024-02-02 08:21 | XMS_ITS | Clinical Summary ---
Author Organization [facility] Address [place], [place] [address] Care Team Providers Care Electrician Helper Powerhouse Name Role Phone Jose Daniel, [facility] Primary Care Provider Un available Allergies [...] Department Care Team Description 11/17/2023 Nurse Triage [facility] [address] [facility] Daniel [address] [place] [address] Keila Roberto MD Questions 11/17/2023 Telephone [facility] [address] [facility] [address] [place] [address] Keila Roberto MD Error-please disregard 11/15/2023 6:50 PM CDT Ancillary Procedure [facility] [address] [place] [address] 11/15/2023 6:15 PM CDT Office Visit [facility] [place] [facility] [address] [place] [id number] Keila Roberto MD Foot Injury 11/15/2023 Travel [...] lb 1.6 oz) 04/13/2019 8:28 P M SALES REPRESENTATIVE EDUCATION COURSES Height 162.6 cm (5' 4) 04/13/2019 8:28 PM SALES REPRESENTATIVE EDUCATION COURSES Body Mass Index 23.88 04/13/2019 8:28 PM SALES REPRESENTATIVE EDUCATION COURSES Plan of Treatment Health Maintenance Due Date [...] HPV HIGH RISK Routine 04/21/2023 12:00 PM SALES REPRESENTATIVE EDUCATION COURSES from Last 3 Months or Most Recently [...] E Negative Negative 11/15/2023 6:46 PM CDT [facility] Urine URINE SPECIMEN / Unknown Non-Blood / Unknown 11/15/2023 6:40 PM CDT 11/15/2023 6:40 PM CDT Keila Roberto MD URINE [facility] [address], [address] [place] [address] * HPV HIGH RISK (04/21/2023 12:00 PM SALES REPRESENTATIVE EDUCATION COURSES) TYPE 16 Negative Negative 04/26/2023 2:25 PM SALES REPRESENTATIVE EDUCATION COURSES [facility] TYPE 18 Negative Negative 04/26/2023 2:25 PM SALES REPRESENTATIVE EDUCATION COURSES [facility] OTHER HIGH RISK TYPES Negative Negative 04/26/2023 2:25 PM SALES REPRESENTATIVE EDUCATION COURSES [facility] Other (Cervical) 04/21/2023 12:00 PM SALES REPRESENTATIVE EDUCATION COURSES 04/25/2023 8:54 AM SALES REPRESENTATIVE EDUCATION COURSES Narrative [facility] - 04/26/2023 2:25 PM SALES REPRESENTATIVE EDUCATION COURSES HPV types 16, 18, 31, 33, 35, 39, 45, 51, 52, 56, 58, 59, 66 and 68 DNA were undetectable or below the pre-set threshold. Methodology: Kassandra Alexandra 4800 HPV Test Juany Myers NP MICROBIOLOGY Performing Organization Address City/[facility]/ZIP Co de Phone Number [facility] [address] [place] [address], from Last 3 Months or Most Recently Relevant to Health Maintenance Care Teams Electrician Helper Powerhouse Relationship Specialty Start Date [facility] 04[facility]
--- OUTSIDE RECORDS SUMMARY | 2024-02-02 08:21 | XMS_ITS | Clinical Summary ---
Author Organization [place] Address [address] [place] [address] Care Team Providers Care Nutrient Management Specialist Name Role Phone Zoey Dailey MD Primary [...] call - spoke to pt, moved to [place] and seeing a provider in a different [...] AM CDT Legal Sex Female 3:36 AM CABLE SPLICER ASSISTANT Gender Identity Female 05/26/2020 8:38 AM CDT [...] HPV Source SurePath 06/01/2020 5:00 PM CDT [facility] D[facility] HPV 16 DNA Negative NEG^Nega tive 06/05/2020 4:02 PM CDT [facility] HPV 18 DNA Negative NEG^Nega tive 06/05/2020 4:02 PM CDT [facility] Other HR HPV Positive(A) NEG^Be dowell 06/05/2020 4:02 PM CDT [facility] Final Diagnosis This patient's sample is positive for other HR HPV DNA (types 31, 33, 35, 39, 45, 51, 52, 56, 58, 59, 66 or 68), not HPV 16 or HPV 18 DNA. This result requires clinical correlation with concurrent cytology findings. 06/05/2020 4:02 PM CDT [facility] Comment: This test was developed and its performance characteristics determined by the [facility], Molecular Diagnostics Laboratory. It has not [...] Description Cervical Cells 06/01/2020 5:00 PM CDT [facility] Cervical Cells 06/01/2020 5: 22 PM CDT 06/01/2020 5:27 PM CDT us Zoey Dailey MD LAB - BLOOD ORDERABL ES Final [facility] [address] [place] [address] [address] * Pap imaged thin layer screen with HPV - recommended age 30 - 65 years (select HPV order below) (06/01/2020 5:00 PM CDT) PAP CAITLIN COPGLORIA Copath Report Patient Name: JACKIE DUCKWORTH MR#: [id number] Specimen #: [id number] Collected: 06/01/2020 Received: 06/03/2020 Reported: 06/04/2020 12:26 [...] adenocarcinomas or other cancers. COLLECTION SITE: Client: [facility] Location: [facility] () The technical component of this testing was completed at the [facility] [employer] [facility], with the professional component performed at the [facility] [facility], [address] [place] [phone] ([phone]) LACIE Cytologic material (specimen) 06/01/2020 5:00 PM CDT 06/03/2020 11:44 AM CDT Zoey Dailey MD LAB - OPTIME CLINICA L SPECIMEN Final Result [facility] * HIV Ag/Ab Screen [place] [facility] (07/20/2011 3:33 PM CDT) HIV Antigen/Antibo dy Negative [facility] HISTORICAL RESULTS 07/20/2011 3:33 PM CDT 07/20/2011 3:33 PM CDT Stephanie Mendieta MD LAB - [facility] Edited [facility] HISTORICAL RESULTS from Last 3 Months or Most Recently Relevant to Health Maintenance Insurance [place]ERELLE OSEGUERA [id number] [facility] INDIVIDUAL FAMILY PLANS Care Teams Nutrient Management Specialist Relationship Specialty Start Date End Date Zoey Dailey MD [address] [place] [address] [place] [id number] PCP - General Internal Medicine 07/27/18
--- OUTSIDE RECORDS SUMMARY | 2024-02-02 08:21 | XMS_ITS | Encounter Summary ---
Author Organization [place] Address [address] [place] [address] Care Team Providers Care Galley Worker Name Role Phone Clinic, [facility] [place] Primary Care Pr ovider Stephanie Mendieta MD Primary Care Provider +1- [phone] Raffy Frye MD Primary Care Provid er Raffy Frye MD Unavailable + [phone] Raffy Frye MD Unavailable + [phone] Encounter Details Date Type Department Care Team (Late st Contact Info) Description 10/18/2011 Office Visit-UMP INTERFACE UMP DEPT Unknown, Provider Social History Tobacco Use Types Packs/Day Years Used Date Smoking Tobacco: Never Assessed Comments Yes Sex and Gender Information Value Date Recorded Sex Assigned at Female 05/26/2020 8:38 AM CDT Legal Sex Female 3:36 AM DIRECTOR OF RESPIRATORY THERAPY Gender Identity Female 05/26/2020 8:38 AM CDT Sexual Orientation Straight 05/26/2020 8: 38 AM CDT documented as of this encounter Progress Notes * Unknown, Provider - 10/18/2011 1:06 PM CDT Conversion Worker: Ganesh Flores Status: Signed Encounter: 2011-10-18 13:06:00.000 Type: PCC Chart Note sent records to L&D--leora 10-18-11 Electronically signed by:Ganesh Flores Oct 18 2011 1:07PM DIRECTOR OF RESPIRATORY THERAPY documented in this encounter Plan of Treatment Not on file documented as of this encounter Visit Diagnoses Not on filedocumented in this encounter Care Teams Galley Worker Relationship Specialty Start Date End Date Clinic, [facility] [place] [address] [place] [address] PCP - General 12/27/10 02/10/12 [place] [address] [place] [address] PCP - General Family Practice 02/11/12 07/26/18 Raffy Frye MD [address] [facility] [place] [address] PCP - General Internal Medicine 07/27/18 Raffy Frye MD [address] [facility] [place] [address] Assigned PCP 07/06/18 02/25/22 Raffy Frye MD [address] [facility] [place] [address] Assigned PCP 05/07/22 07/03/23 documented as of this encounter
[2024-02-02 14:25] LABS: Chlamydia DNA Amplified* NOT DETECTED (No Detected); GC DNA Amplified* NOT DETECTED (No Detected)
== END 2024-02-02 08:20 | disposition home or self-care (01) ==
PROVIDERS: PCP Family Medicine; Visit Provider Registered Nurse
DX: Z34.91 Encounter for supervision of normal pregnancy, unspecified, first trimester (principal); Z3A.01 Less than 8 weeks gestation of pregnancy
CPT/HCPCS: 83021; 86592; 86703; 86704; 86706; 86762; 86787; 86803; 86850; 86900; 86901; 87086; 87340; 87491; 87591

== ENCOUNTER 2024-04-29 09:14 | Outpatient (CLI) | payer OTHER, SELFPAY ==
--- NOTE | 2024-04-29 09:15 | CRLHL7_ITS ---
For Patients: As a result of the Century Cures Act, medical imaging exams and procedure reports are released immediately into your electronic medical record. You may view this report before your referring provider. If you have questions, please contact your health care provider. INDICATION: Evaluate anatomy TECHNIQUE: Ultrasound OB pelvis transabdominal. Real time ibarra scale imaging of the fetus was performed. COMPARISON: 02/02/2024 FINDINGS: Sonographic imaging demonstrates a single living intrauterine gestation. Fetus demonstrates a regular cardiac rate of 152 beats per minute. Fetus has a breech orientation. The placenta lies posteriorly. Placenta is low lying measuring approximally 1 cm from the internal os. Amniotic fluid volume appears normal. Single deepest vertical pocket: 6.4 cm. Cervical length measures 5.8 cm. The composite ultrasound gestational age is calculated at 20 weeks 5 days with an estimated sonographic due date of 09/11/2024. The estimated weight is 381 grams which lies at the 88%. The following biometric measurements were obtained: Biparietal diameter: 4.8 centimeters, 20 weeks 4 days Head circumference: 17.8 centimeters, 20 weeks 2 days Abdominal circumference: 16.5 centimeters, 21 weeks 4 days Femur length: 3.3 centimeters, 20 weeks 1 day On anatomic survey, there is a normal appearance of the cerebral ventricles, cisterna magna and cerebellum. The nose, lips, and facial profile appear normal. The cervical, thoracic and lumbar spines are well visualized and appear normal. There is a normal four-chamber heart and the left and right ventricular outflow tracts appear normal. diaphragm, stomach, kidneys and bladder appear normal. There is a normal three-vessel cord and cord insertion site. The four extremities appear normal. IMPRESSION: 1. Single living intrauterine gestation. Composite ultrasound gestational age of 20 weeks 5 days with estimated sonographic due date of 09/11/2024. 2. Low-lying placenta approximally 1 cm from the internal os. Recommend short-term interval follow-up. 3. No intrinsic abnormalities noted on anatomic survey. Dictated by Isaac Murdock MD @ 04/29/2024 6:10:23 PM (Electronically Signed)
== END 2024-04-29 09:15 | disposition home or self-care (01) ==
LOC: US 09:14
PROVIDERS: PCP Family Medicine; Visit Provider Obstetrics & Gynecology
DX: Z34.92 Encounter for supervision of normal pregnancy, unspecified, second trimester (principal); O44.42 Low lying placenta NOS or without hemorrhage, second trimester; Z3A.20 20 weeks gestation of pregnancy
CPT/HCPCS: 76805; 76817

== ENCOUNTER 2024-05-27 10:05 | Outpatient (CLI) | payer OTHER, SELFPAY ==
--- NOTE | 2024-05-27 10:15 | CRLHL7_ITS ---
For Patients: As a result of the Century Cures Act, medical imaging exams and procedure reports are released immediately into your electronic medical record. You may view this report before your referring provider. If you have questions, please contact your health care provider. OB ULTRASOUND LMP: 11/27/2023. BETH by US: 09/16/2024. GA: 24 w, 0 d. Single. Comparison: 02/02/2024, 04/29/2023. INDICATION: Low-lying placenta TECHNIQUE: Real time grayscale imaging of the fetus was performed. Transabdominal and transvaginal. CERVIX: Visualized. Transvaginal measurement: 4.6 cm. POSITIONING: Vertex. JEY: 26.0 cm. AMNIOTIC FLUID: 8.3 cm. SDP (N: greater than 2 x 1 cm) PLACENTA: Technique: Transabdominal. PLACENTA POSITION: Posterior. DOPPLER: heart rate: 155 bpm. IMPRESSION: 1. With transvaginal imaging, the posterior placental edge is located 1.6 cm from the internal cervical os. 2. Amniotic fluid single deepest pocket 8.3 cm. JEY 26.0 cm. 3. The cervix is closed and measures 4.6 cm. Darin Flynn M.D. Diagnostic Radiologist [email or web address] SANGEETA/[email or web address] higgins/Dictated by: Darin Flynn MD @ 05/27/2024 11:29:00 AM (Electronically Signed)
== END 2024-05-27 10:06 | disposition home or self-care (01) ==
LOC: US 10:05
PROVIDERS: PCP Family Medicine; Visit Provider Obstetrics & Gynecology
DX: O44.42 Low lying placenta NOS or without hemorrhage, second trimester (principal); Z3A.24 24 weeks gestation of pregnancy
CPT/HCPCS: 76816; 76817

== ENCOUNTER 2024-06-11 07:27 | Outpatient (CLI) | payer OTHER, SELFPAY ==
--- NOTE | 2024-06-11 07:15 | CRLHL7_ITS ---
For Patients: As a result of the Century Cures Act, medical imaging exams and procedure reports are released immediately into your electronic medical record. You may view this report before your referring provider. If you have questions, please contact your health care provider. OB ULTRASOUND, 06/11/2024 LMP: 11/27/2023. BETH by US: 09/16/2024. GA: 26 w, 1 d. INDICATION: Polyhydramnios. TECHNIQUE: Real time ibarra scale imaging of the fetus was performed. Transabdominal. Single. COMPARISON: 05/27/2024, 04/29/2024, 02/02/2024. Cervix: Visualized. Technique: Transabdominal. Length of closed cervix: 4.0 cm. position: Vertex. Placenta position: Posterior. Amniotic Fluid: 27.1cm SDP: 8.6 (greater than/equal to: 2- less than 8 cm). heart rate: 147 bpm. IMPRESSION: Amniotic fluid single deepest pocket 8.6 cm. JEY 27.1 cm. Darin Flynn M.D. Diagnostic Radiologist [employer] [email or web address] SANGEETA/aster JR/Dictated by: Darin Flynn MD @ 06/11/2024 8:41:00 AM (Electronically Signed)
== END 2024-06-11 07:28 | disposition home or self-care (01) ==
PROVIDERS: PCP Family Medicine; Visit Provider Obstetrics & Gynecology
DX: O40.2XX0 Polyhydramnios, second trimester, not applicable or unspecified (principal); Z3A.26 26 weeks gestation of pregnancy
CPT/HCPCS: 76815

== ENCOUNTER 2024-06-19 07:47 | Outpatient (CLI) | payer OTHER, SELFPAY | END 2024-06-19 07:48 | disposition home or self-care (01) | LOC: US 07:47 | PROVIDERS: PCP Family Medicine; Visit Provider Obstetrics & Gynecology | DX: O40.2XX0 Polyhydramnios, second trimester, not applicable or unspecified (principal); O44.42 Low lying placenta NOS or without hemorrhage, second trimester; Z3A.27 27 weeks gestation of pregnancy | CPT/HCPCS: 76811 ==

== ENCOUNTER 2024-06-27 08:35 | Outpatient (CLI) | payer OTHER, SELFPAY | END 2024-06-27 08:36 | disposition home or self-care (01) | LOC: NFLDREF 06-30 13:46 | PROVIDERS: PCP Family Medicine; Referring Provider Family Medicine; Visit Provider Obstetrics & Gynecology | DX: Z34.83 Encounter for supervision of other normal pregnancy, third trimester (principal) | CPT/HCPCS: 86592 ==

== ENCOUNTER 2024-07-08 08:05 | Outpatient (CLI) | payer OTHER, SELFPAY ==
--- NOTE | 2024-07-08 08:15 | CRLHL7_ITS ---
For Patients: As a result of the Cures Act, medical imaging exams and procedure reports are released immediately into your electronic medical record. You may view this report before your referring provider. If you have questions, please contact your health care provider. BETH by US: 09/16/2024. GA: 30w, 0d. Single. INDICATION: Polyhydramnios. CERVIX: Not visualized. POSITIONING: Vertex. AMNIOTIC FLUID: 26.4 cm JEY, 8.5 cm SDP. PLACENTA: Technique: Transabdominal. PLACENTA POSITION: Posterior. DOPPLER: heart rate: 127 bpm. IMPRESSION: Single deepest pocket 8.5 cm. JEY 26.4 cm. Darin Flynn M.D. Diagnostic Radiologist [employer] [email or web address] SANGEETA/[email or web address] / bM/Dictated by: Darin Flynn MD @ 07/08/2024 2:44:00 PM (Electronically Signed)
== END 2024-07-08 08:06 | disposition home or self-care (01) ==
LOC: US 08:05
PROVIDERS: PCP Family Medicine; Visit Provider Obstetrics & Gynecology
DX: O40.9XX0 Polyhydramnios, unspecified trimester, not applicable or unspecified (principal)
CPT/HCPCS: 76815

== ENCOUNTER 2024-07-22 09:09 | Outpatient (CLI) | payer OTHER, SELFPAY ==
--- NOTE | 2024-07-22 09:15 | CRLHL7_ITS ---
For Patients: As a result of the Century Cures Act, medical imaging exams and procedure reports are released immediately into your electronic medical record. You may view this report before your referring provider. If you have questions, please contact your health care provider. OBSTETRICAL ULTRASOUND ??? FOLLOW-UP, 07/22/2024 INDICATION: Polyhydramnios. Follow-up growth and amniotic fluid index. CLINICAL HISTORY: BETH by US: 09/16/2024 Gestational Age: 32 weeks 0 days COMPARISON: 07/08/2024, 06/19/2024, 06/11/2024 TECHNIQUE: Real-time ibarra-scale transabdominal imaging of the pelvis and fetus was performed. FINDINGS: Fetus: Single Cervix: Not visualized positioning: Vertex Amniotic Fluid: JEY: 27.7 cm 8.3 cm SDP Placenta technique: Transabdominal Placenta position: Posterior heart rate: 144 bpm BIOMETRY: BPD: 8.6 cm, 34 weeks 4 days, 96.4% HC: 31.1 cm, 34 weeks 5 days, 83.9% AC: 31.8 cm, 35 weeks 5 days, greater than 97% FL: 6.4 cm, 33 weeks 1 day, 70.1% FL/AC Ratio: 20.2% HC/AC ratio: 1.0 EFW: 2524 grams; 5 lbs. 9 oz. age by this ultrasound: 34 weeks 4 days BETH by this ultrasound: 08/29/2024 Percentile by BETH: Greater than 97% IMPRESSION: 1. Sonographic gestational age 34 weeks 4 days and sonographic due date 08/29/2024. Sonographic age is 18 days ahead of the clinical age. 2. Estimated weight is greater than 97th percentile. Abdominal circumference is greater than 97th percentile. 3. Amniotic fluid single deepest pocket is 8.3 cm. Amniotic fluid index is 27.7 cm. 4. Renal pelvis measures 4.1 mm and 3.9 mm, considered normal at this gestational age. DARIN DEY M.D. Diagnostic Radiologist [email or web address] Transcribed: 10:[address]/Dictated by: Darin Dey MD @ 07/22/2024 10:12:00 AM (Electronically Signed)
== END 2024-07-22 09:10 | disposition home or self-care (01) ==
LOC: US 09:09
PROVIDERS: PCP Family Medicine; Visit Provider Obstetrics & Gynecology
DX: O40.3XX0 Polyhydramnios, third trimester, not applicable or unspecified (principal); O36.63X0 Maternal care for excessive fetal growth, third trimester, not applicable or unspecified; Z3A.32 32 weeks gestation of pregnancy
CPT/HCPCS: 76816

== ENCOUNTER 2024-08-07 09:17 | Outpatient (CLI) | payer OTHER, SELFPAY ==
--- NOTE | 2024-08-07 09:15 | CRLHL7_ITS ---
For Patients: As a result of the Cures Act, medical imaging exams and procedure reports are released immediately into your electronic medical record. You may view this report before your referring provider. If you have questions, please contact your health care provider. OB ULTRASOUND FOLLOW-UP LIMITED, 08/07/2024 CLINICAL HISTORY: Polyhydramnios. COMPARISON: 07/22/2024, 07/08/2024, 06/11/2024. TECHNIQUE: Real time ibarra scale imaging of the fetus was performed. Transabdominal imaging performed. FINDINGS: BETH by LMP: 09/16/2024. GA: 34 weeks 2 days. GESTATION: Single. CERVIX: Not visualized. POSITIONING: Vertex. AMNIOTIC FLUID: 24.0 cm JEY. 7.4 cm SDP. PLACENTA: Technique: TA. Placenta Position: Posterior. DOPPLERS: Heart Rate: 134 bpm. IMPRESSION: Amniotic fluid single deepest pocket 7.4 cm. Four quadrant JEY 24.0 cm. Darin Flynn M.D. Diagnostic Radiologist [employer] [email or web address] Transcribed: 11:04 am DW/Dictated by: Darin Flynn MD @ 08/07/2024 9:59:00 AM (Electronically Signed)
== END 2024-08-07 09:18 | disposition home or self-care (01) ==
LOC: US 09:17
PROVIDERS: PCP Family Medicine; Visit Provider Obstetrics & Gynecology
DX: O40.3XX0 Polyhydramnios, third trimester, not applicable or unspecified (principal); Z3A.34 34 weeks gestation of pregnancy
CPT/HCPCS: 76815; 82728

== ENCOUNTER 2024-08-20 09:11 | Outpatient (CLI) | payer OTHER, SELFPAY ==
--- NOTE | 2024-08-20 09:15 | CRLHL7_ITS ---
For Patients: As a result of the Century Cures Act, medical imaging exams and procedure reports are released immediately into your electronic medical record. You may view this report before your referring provider. If you have questions, please contact your health care provider. OBSTETRICAL ULTRASOUND ??? FOLLOW-UP, 08/20/2024 INDICATION: Polyhydramnios. Follow-up growth. CLINICAL HISTORY: BETH by US: 09/16/2024 Gestational Age: 36 weeks 1 day COMPARISON: 08/07/2024, 07/22/2024, 07/08/2024. TECHNIQUE: Real-time ibarra-scale transabdominal imaging of the fetus was performed. FINDINGS: Fetus: Single Cervix: Not visualized positioning: Vertex Amniotic Fluid: JEY: 23.0 cm 9.0 cm SDP Placenta technique: Transabdominal Placenta position: Posterior heart rate: 139 bpm BIOMETRY: BPD: 9.0 cm, 36 weeks 3 days, 66% HC: 32.9 cm, 37 weeks 3 days, 50% AC: 35.8 cm, 39 weeks 5 days, >97% FL: 7.2 cm, 36 weeks 6 days, 64% FL/AC Ratio: 20.07% HC/AC ratio: 0.92 EFW: 3483 grams; 7 lbs. 11 oz. age by this ultrasound: 37 weeks 0 days BETH by this ultrasound: 09/10/2024 Percentile by BETH: 96% IMPRESSION: 1. Left renal pelvis measures 6.5 mm which is considered within normal limits at this gestational age. 2. Sonographic gestational age 37 weeks 0 days and sonographic due date 09/10/2024. Sonographic age is 6 days ahead of the clinical age. 3. Estimated weight is 96th percentile. Abdominal circumference is greater than 97th percentile. 4. Amniotic fluid single deepest pocket is 9.0 cm. JEY is 23.0 cm. DARIN DEY M.D. Diagnostic Radiologist [email or web address] Transcribed: 10:[address]/Dictated by: Darin Dey MD @ 08/20/2024 10:04:00 AM (Electronically Signed)
== END 2024-08-20 09:12 | disposition home or self-care (01) ==
LOC: US 09:11
PROVIDERS: PCP Family Medicine; Visit Provider Obstetrics & Gynecology
DX: O40.3XX0 Polyhydramnios, third trimester, not applicable or unspecified (principal); O36.63X0 Maternal care for excessive fetal growth, third trimester, not applicable or unspecified; Z3A.36 36 weeks gestation of pregnancy
CPT/HCPCS: 76816; 87081; 87653

== ENCOUNTER 2024-09-05 12:16 | Outpatient (CLI) | payer OTHER, SELFPAY ==
--- NOTE | 2024-09-05 12:15 | CRLHL7_ITS ---
For Patients: As a result of the Century Cures Act, medical imaging exams and procedure reports are released immediately into your electronic medical record. You may view this report before your referring provider. If you have questions, please contact your health care provider. OB ULTRASOUND BETH by US: 09/16/2024. GA: 38 w, 3 d. Single. Comparison: 08/20/2024, 08/07/2024, 07/22/2024. INDICATION: Polyhydramnios. Full JEY. TECHNIQUE: Real time grayscale imaging of the fetus was performed. Transabdominal. CERVIX: Not visualized. POSITIONING: Vertex. AMNIOTIC FLUID: 14.3 cm JEY. 8.5 cm. SDP (N: greater than 2 x 1 cm) PLACENTA: Technique: Transabdominal. PLACENTA POSITION: Posterior. DOPPLER: heart rate: 138 bpm. IMPRESSION: 1. Amniotic fluid single deepest pocket 8.5 cm. JEY 14.3 cm. 2. Renal pelvis measures 2.3 mm on the right and 7.1 mm on the left. Post-argenis follow-up recommended. Darin Flynn M.D. Diagnostic Radiologist [email or web address] SANGEETA/[email or web address] higgins/Dictated by: Darin Flynn MD @ 09/05/2024 3:59:00 PM (Electronically Signed)
--- OUTSIDE RECORDS SUMMARY | 2024-09-06 01:10 | XMS_ITS | Clinical Summary ---
Author Organization [facility] Address [address] [place] [id number] Care Team Providers Care Education Program Specialist Name Role Phone Jose Daniel, [facility] Primary Care Provider Un available Allergies Active Allergy Reactions Criticality Noted Date Comments Penicillins *Unknown 04/13/2019 Medications HYDROcodone-ac etaminophen (5-325 mg/tablet)Kandis cations:Nondis placed transverse fracture of shaft of left fibula, initial encounter for closed fracture Take 1 Tablet by mouth every 4 hours if needed for Pain. Max acetaminophen dose: 4000 mg in 24 hrs. 20 Tablet Active Social History Tobacco Use Types Packs/Day Years Used Date Smoking Tobacco: Never Smokeless Tobacco: Never Tobacco Cessation:Counseling Given: Not Answered Alcohol Use Standard Drinks/Week Comments Not Currently 0 (1 standard drink = 0.6 oz pur e alcohol) Social Connections Answer Date Recorded Do you often feel lonely or isolated from those around you? 0 11/15/2023 Financial Resource Strain Answer Date R ecorded Difficulty of Paying Living Expenses 3 04/13/2024 Difficulty of Paying Living Expenses Not on file 04/13/2024 Food Insecurity Answer Date Recorded Do you worry your food will run out before you are able to buy more? 1 11/15/2023 Transportation Needs Answer Date Record ed Does lack of transportation keep you from medica l appointments? 1 11/15/2023 Does lack of transportation keep you from work, meetings or getting things that you need? 1 11/15/2023 Housing Stability Answer Date Recorded What is your housing situation today? 1 11/15/2023 Utilities Answer Date Recorded Do you have trouble paying f or utilities (for example, heat, electricity, water, phone)? 1 11/15/2023 Comments Unknown Sex and Gender Information Value Date Recorded Sex Assigned at Not on file Legal Sex Female 7:59 PM PLATING STRIPPER Gender Identity Not on file Sexual Orientation [...] lb 1.6 oz) 04/13/2019 8:28 P M PLATING STRIPPER Height 162.6 cm (5' 4) 04/13/2019 8:28 PM PLATING STRIPPER Body Mass Index 23.88 04/13/2019 8:28 PM PLATING STRIPPER Plan of Treatment Health Maintenance Due Date Last Done Comments Tdap 2001 Depression screening for age 12+ 2002 HIV for age 15-65 2005 BMI (ht and wt on same day) for age 18+ 01/28/2008 Hepatitis C screening for age 18-79 01/28/2008 Hepatitis B series for 19+ (1 of 3 - 19+ 3-dose series) 2009 Tetanus booster 2010 COVID-19 vaccine series ( season) 2023 Influenza Vaccine (Season Ended) 2024 Pap test for age 21-65 04/21/2026 , 04/21/2023, 12/03/2021, Additional history exists Pneumococcal series for age 6-49 Aged Out No longer eligible based on patient's age to complete this topic Procedures Procedure Name Priority Date/Time Associated Diagnosis Comments HPV HIGH RISK Routine 04/21/2023 12:00 PM PLATING STRIPPER from Last 3 Months or Most Recently Relevant to Health Maintenance Results * HPV HIGH RISK (04/21/2023 12:00 PM PLATING STRIPPER) TYPE 16 Negative Negative 04/26/2023 2:25 PM PLATING STRIPPER [facility] TYPE 18 Negative Negative 04/26/2023 2:25 PM PLATING STRIPPER [facility] OTHER HIGH RISK TYPES Negative Negative 04/26/2023 2:25 PM PLATING STRIPPER [facility] Other (Cervical) 04/21/2023 12:00 PM PLATING STRIPPER 04/25/2023 8:54 AM PLATING STRIPPER Narrative [facility] - 04/26/2023 2:25 PM PLATING STRIPPER HPV types 16, 18, 31, 33, 35, 39, 45, 51, 52, 56, 58, 59, 66 and 68 DNA were undetectable or below the pre-set threshold. Methodology: Kassandra Alexandra 4800 HPV Test us Juany Myers NP MICROBIOLOGY Final Res ult [facility] [address] [place] [id number], from Last 3 Months or Most Recently Relevant to Health Maintenance [place] [address] [employer] Care Teams Education Program Specialist Relationship Specialty Start Date End Date Francy Sky [facility] PCP - General 04/13/19
== END 2024-09-05 12:17 | disposition home or self-care (01) ==
LOC: US 12:16
PROVIDERS: PCP Family Medicine; Visit Provider Obstetrics & Gynecology
DX: O40.3XX0 Polyhydramnios, third trimester, not applicable or unspecified (principal); Z3A.38 38 weeks gestation of pregnancy
CPT/HCPCS: 76815

== ENCOUNTER 2024-09-09 06:12 | Inpatient (IN) | payer OTHER, SELFPAY ==
[2024-09-09] VITALS (44 sets, daily range): BP systolic 123–160; BP diastolic 70–86; PULSE 63–83; RESP 16; TEMP 36.6–37; O2SAT 97–100; BMI 32.2
[2024-09-09 08:06] LABS: Hematocrit 33.0 % (33.0-51.0); Hemoglobin* 11.2 gm/dL (12.0-16.0); Immature Granulocytes Abs Auto 0.02 K/uL (0.00-0.30); Immature Granulocytes Pct Auto 0.3 %; Lymphocytes Absolute Auto 1.43 K/uL (0.90-2.90); Mean Corpuscular HGB Conc 34 gm/dL (32-36); Mean Corpuscular Hemoglobin 30 pg (26-34); Mean Corpuscular Volume 89 fL (80-100); RDW Coefficient of Variation % 13.5 % (11.5-15.5); Red Blood Count 3.72 m/uL (4.00-5.20); White Blood Count* 6.53 K/uL (4.50-11.00)
[2024-09-09 08:07] LABS: Slide Review Reflex No
--- NOTE | 2024-09-09 09:22 | W.PM.LDBA ---
Subjective History of Present Illness Date Seen: 09/09/24 Narrative: Patient is being admitted to Labor and Delivery for IOL. She is a 34 year old -0-4-2 woman at 39 0/7 weeks gestation. Her full history and physical was dictated by Dr. Dwyer on 08/28/24. Please see this for details. [] Specific Issues/Plans G 7 P 2041 : Servando Children: Albert (Servando is not the biologic father), Zena. Baby: Boy! Marito Mikel H&P by [facility] on 08/28/2024 # Polyhydramnios-mild & macrosomia 06/11/24: JEY: 27.1 06/19/24 (LVL 2): JEY 28.9cm. 07/08/24: JEY 26.4 07/22:25: JEY 27.7 08/07: MVP 7.4, JEY 24.0 - *nearly* resolved Repeat USN Q2wks for SDP and JEY USN Q4 weeks for EFW. If JEY continues to be <30.0 (mild poly) then delivery at [id number]. If JEY 30.0-34.9 (moderate poly) or >/= 35.0cm (severe poly) then: Wkly BPP. And referral back to [facility] when >/= 32 weeks. # Left renal pyelectasis 09/05: Renal pelvis measures 2.3 mm on the right and 7.1 mm on the left. Post-argenis follow-up recommended. # closely spaced pregnancies. Last delivery 03/10/2023. # Umbilical hernia: not symptomatic Wants repaired when she is : Referral to general surgery placed on 08/28/2024. Interested in interval laparoscopic bilateral salpingectomy to coincide with hernia repair. Refer to general surgery when the patient is to schedule both procedures. # Low-lying placenta at 20 weeks 1.0 cm from the os. RESOLVED ON 06/19/24 Repeat at 24 weeks to assess placental location: see below. Repeat US in 3rd trimester 06/19/24: 3.60cm from the os. testing plan: Serial evaluation of amniotic fluid every 2 weeks with serial assessment of growth and anatomy every 4 weeks If there is progression to moderate/severe polyhydramnios (JEY 30-34 cm and > 35 cm respectively), then recommend initiation of weekly BPP at that time if > 32 weeks gestation and referral back to [facility] (either in [place] or [facility]) at that time. If persistent mild polyhydramnios is noted, delivery is recommended in the 39th week. If there is resolution of the polyhydramnios over 2 US in a row, can decrease surveillance to every 4 weeks. Imagin04/29/24: Breech, SDP 6.4cm. 3 vessel cord. Post placenta 1.0cm from cervical os. No anatomic abnormality identified. EFW: 381gm, 13oz, 88%. 05/27/24: With transvaginal imaging, the posterior placental edge is located 1.6 cm from the internal cervical os. SDP 8.3 cm. JEY 26.0 cm. Closed cervix, 4.6cm. 06/11/24: JEY: 27.1cm, SDP: 8.6cm. 06/19/24: Level 2: [place] at 27w 2d. Posterior placenta, no previa (edge 3.60cm from the os). Normal survey. JEY: 28.9. EFW: 2#13oz, 1275g, 89.8%. 07/08/2024: JEY 26.4 cm, SDP 8.5 cm 07/22/24: Vtx. SDP 8.3cm. JEY 27.7cm. EFW: 2524 g, 5 lb 9 oz >97%. BPD 96%, HC 84%, AC > 97%, FL 70% 08/20/24: Vertex, JEY: 23.0, SDP: 9.0 cm. BPD: 66 percentile, HC: 58th percentile, AC: More than the 97th percentile, FL: 64th percentile. EFW: 3483 g, 96 percentile. 09/05: cephalic, JEY 14.3, SDP 8.5. Renal pelvis measures 2.3 mm on the right and 7.1 mm on the left. Post- follow-up recommended. Vaccinations: Flu: Recommended. Declines. Covid: Not vaccinated. Recommended. Declines. Tdap: 07/08/24 RSV: N/A HGB: 10.7 08/07/24 32 week mental health: PHQ-9: 1, ROBY -7: 0. Last pap: April 2023 normal, negative HPV NIPT 02/29/2024: Low risk for aneuploidy. Male. Negative carrier screening. OB - Problem Based A/P Additional Plan (1) SROM (spontaneous rupture of membranes): Status: Acute Plan SROM with placement of Cook. Unfavorable cervix. GBS negative. We will begin with oral Cytotec for cervical ripening. If she is renee regularly, we will evaluate cervix and potentially transition to pitocin. Delivery/Labor/Induction Plan Plan: induction OB Exam Physical Exam Vital signs: Pulse BP 69 128/73 09/09/24 08:06 09/09/24 08:06 Narrative: Physical exam: General: No acute distress Psych: Alert and oriented x3, full affect HEENT: Normocephalic, atraumatic Heart: Regular rate and rhythm, no murmur rub or gallop Lungs: Clear to auscultation bilaterally Abdomen: Soft, nontender, gravid, cephalic lie Lower extremities: No edema or erythema Pelvic exam: Cervix 1 / 60 / -3 / posterior / moderate. tracing: Baseline 130 / accelerations present / no decelerations / moderate variability. Category I Using asceptic technique, Cook Catheter inserted through cervix into lower uterine segment. Intrauterine balloon inflated to 30 cc. Thereafter, there was a gush of amniotic fluid. The Cook catheter was then removed.
[2024-09-09] MEDS: OXYTOCIN 30 unit/500 ML in NS 30 UNIT/500 ML BAG IVPB (15:06)
[2024-09-09] MEDS: LACTATED RINGERS 1000 ML 1,000 ML 125 ML IV (15:06)
[2024-09-09 18:19] LABS: Hematocrit 32.8 % (33.0-51.0); Hemoglobin* 11.1 gm/dL (12.0-16.0); Mean Corpuscular HGB Conc 34 gm/dL (32-36); Mean Corpuscular Hemoglobin 30 pg (26-34); Mean Corpuscular Volume 89 fL (80-100); Red Blood Count 3.69 m/uL (4.00-5.20); White Blood Count* 7.91 K/uL (4.50-11.00)
[2024-09-09 18:29] LABS: Slide Review Reflex No
[2024-09-09 18:34] LABS: Alanine Aminotransferase* 21 U/L (4-35); Aspartate Amino Transferase* 34 U/L (12-35); Blood Urea Nitrogen* 7 mg/dL (5-24); Creatinine* 0.5 mg/dL (0.5-1.5); Est. Creatinine Clearance* 136.90; Estimated Glomerular Filt Rate 126 ml/min
[2024-09-09] MEDS: LIDOCAINE 2% (PF) 5 ML VIAL EPIDURAL (20:36)
[2024-09-09] MEDS: ROPIVACAINE 0.2% 100 ml 100 ML 12 MG EPIDURAL (20:37)
[2024-09-09] MEDS: LACTATED RINGERS 1000 ML 1,000 ML 900 ML IV (20:46)
--- NOTE | 2024-09-09 21:01 | P.ANBPRC_ITS ---
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 (ICD-10) History of abnormal cervical Pap smear ?Z87.42 - Personal history of other diseases of the female genital tract (ICD-10) ?O03.9 - Complete or unspecified spontaneous without complication (ICD-10) Chlamydia ?A74.9 - Chlamydial infection, unspecified (ICD-10) Surgical History (normal spontaneous vaginal delivery) ?O80 - Encounter for full-term uncomplicated delivery (ICD-10) H/O dilation and curettage (05/21/21) ?Z98.890 - Other specified postprocedural states (ICD-10) Family History Family/Other Thyroid cancer Mother High blood pressure Father Depression Social History Narrative: Lives in [place]. 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 No tob / ETOH / recreational drug use. What is your current living situation?: I presently have a place to live Problems where you live: no known problems In the past 12 months, utilities in danger of being shut off: no In past 12 months, lack of transportation kept you from medical appts, meetings, work, or getting things needed for daily living: no In the past 12 mos, have been you worried that your food would run out before you had money to buy more?: never true In the past 12 mos, the food you bought just didn't last and you didn't have money to buy more?: never true Smoking Status: Never smoker How often does anyone, including family, friends and others, physically hurt you : never How often does anyone, including family, friends and others, insult or talk down to you: never How often does anyone, including family, friends and others, threaten you with harm: never How often does anyone, including family, friends and others, scream or curse at you: never Meds Home Medications and Allergies Home Medications ?Medication ?Instructions ?Recorded ?Confirmed ?Type docosahexaenoic acid 200 mg 200 mg PO DAILY 08/03/22 0 09/05/24 History capsule ( DHA) calcium carbonate (Tums) 300 mg PO TID PRN 04/29/24 0 09/05/24 History ferrous sulfate 325 mg (65 mg 325 mg PO Q OTHER DAY 09/05/24 History iron) tablet (Feosol) Allergies Allergy/AdvReac Type Severity Reaction Status Date / Time Penicillins Allergy Unknown Unknown Verified 09/05/24 08:53 Results Labs Labs: Laboratory Results - last 24 hr 09/09/24 09/09/24 06:53 18:12 WBC 6.53 7.91 RBC 3.72 L 3.69 L Hgb 11.2 L 11.1 L Hct 33.0 32.8 L MCV 89 89 MCH 30 30 MCHC 34 34 RDW Coeff of Josh 13.5 Plt Count 205 199 Neut % (Auto) 65.7 Lymph % (Auto) 21.9 Osborne % (Auto) 9.8 Eos % (Auto) 1.8 Baso % (Auto) 0.5 Neut # (Auto) 4.29 Lymph # (Auto) 1.43 Osborne # (Auto) 0.60 Eos # (Auto) 0.12 Baso # (Auto) 0.03 Abs Immat Gran (auto) 0.02 Imm/Tot Granulo (auto) 0.3 BUN 7 Creatinine 0.5 Estimated Creat Clear 136.90 Estimated GFR 126 AST 34 ALT 21 Blood Type O Positive Antibody Screen NEGATIVE Vital Signs Vital Signs: Last Vital Signs Temp 98.2 F 09/09/24 18:46 Pulse 78 09/09/24 21:00 BP 133/75 09/09/24 21:00 Pulse Ox 99 09/09/24 20:56 Weight: 85.185 kg Height: 162.56 cm Anesthesia Procedures Epidural Insertion Patient Location: OB Start Time: :30 Stop Time: 21:15 Start Date: 09/09/24 Stop Date: 09/09/24 Reason for Block: primary anesthetic Patient Position: sitting Performed By: Washington Olvera Preanesthetic Checklist: IV checked, risks and benefits discussed, surgical consent, monitors and equipment checked, pre-op evaluation, timeout performed and anesthesia consent Prep: chlorhexidine gluconate Monitoring: blood pressure monitoring, threat monitoring analyst, continuous pulse oximetry and heart rate Approach: midline Vertebral Space: lumbar (1-5) Needle Type: Tuohy needle Injection Technique: continuous catheter (catheter) Needle gauge: 17 Needle Length (cm): 10 cm Needle Insertion Depth (cm): 5 Catheter Gauge: 19 Catheter Type: multi-orifice Catheter at skin depth (cm): 10 Test Dose Result: negative and lidocaine 1.5% with epinephrine 1 to 200,000
[2024-09-09] MEDS: LACTATED RINGERS 1000 ML 1,000 ML 114 ML IV (21:48)
[2024-09-09 22:48] LABS: Protein Creatinine Ratio Urine 0.12 (0-0.19)
[2024-09-10] VITALS (65 sets, daily range): BP systolic 112–159; BP diastolic 58–97; PULSE 63–83; RESP 16–19; TEMP 36.7–37.2; O2SAT 91–100
--- NOTE | 2024-09-10 00:57 | PM.OBPNL ---
Subjective Date Seen: 09/10/24 Narrative: Jackie is a 34 yo -0-4-2 woman now at 39 1/7 weeks' gestation here for IOL for polyhydramnios and macrosomia. At time of attempted Cook Catheter placement at 0845, she had SROM. She had two doses of oral cytotec for cervical ripening, followed by Pitocin for IOL beginning at 3 PM yesterday. She has had an epidural for pain control. She is feeling contractions, but does not have pain. She has been diagnosed with gestational HTN without severe features during her intrapartum course. Objective Vital Signs: Last Vital Signs Temp 98.3 F 09/10/24 00:00 Pulse 72 09/10/24 00:46 Resp 16 09/10/24 00:00 BP 140/63 H 09/10/24 00:46 Pulse Ox 99 09/09/24 20:56 Comments: Gen - NAD Cervical exam - 3 / 70 / -3 / posterior / moderate tracing: Baseline 135 / accelerations present / no decelerations / moderate variability. Contractions Q 2 min. Contractions Pitocin Rate (mU/min): 15 Assessment Assessment: early labor Status: Category l Tracing Comments: Category I GBS negative Labor Progress: Still not in active labor 16 hours after SROM Maternal Status: Gestational HTN without severe features Plan Plan: Given that she did not start Pitocin until 3 PM (because I first used oral cytotec for ripening) she does not quite meet the definition of failed induction of labor, though i acknowledge that there are no consensus decisions on the definition of failed IOL. She has had two vaginal births, one of a macrosomic ; I am loathe to move towards at this time. I favor continuation of Pitocin for at least 15 hours, until 6 AM. We can reassess at that time. In the interim, she will continue repositioning to promote descent. Continue Pitocin augmentation Continuous monitoring.
[2024-09-10] MEDS: LIDOCAINE 2% (PF) 5 ML VIAL EPIDURAL (01:19)
[2024-09-10] MEDS: ROPIVACAINE 0.2% 100 ml 100 ML 12 MG EPIDURAL (03:15)
[2024-09-10] MEDS: LACTATED RINGERS 1000 ML 1,000 ML 106 ML IV (06:29)
[2024-09-10] MEDS: AZITHROMYCIN 500 MG in 0.9 % SODIUM CHLORIDE 250 ml 250 ML 255 MG IVPB (07:05)
[2024-09-10] MEDS: CEFAZOLIN 2 GM INJ IVP ×2 (07:35→10:19)
[2024-09-10] MEDS: TRANEXAMIC ACID 100 MG/ML INJ 1000 MG IV (08:14)
--- NOTE | 2024-09-10 08:20 | P.ANES_ITS ---
Anesthesia Charges Start Date/Time Anesthesia Start Date: 09/10/24 Anesthesia Start Time: 07:30 Stop Date/Time Anesthesia Stop Date: 09/10/24 Anesthesia Stop Time: 09:34 Coding CPT Codes CPT Codes: ANES/ANALG CS DELIVER ADD-ON - 62484 ([id number]) P2 - PATIENT W/MILD SYST DISEASE, QK - INSTRUCTIONAL TECHNOLOGY INSTRUCTOR 2-4 CNCRNT ANES PROC, QX - ART DISPLAY MAKER SVC W/ MD MED DIRECTION
--- NOTE | 2024-09-10 08:20 | W.ANESCHARGE ---
Anesthesia Charges Start Date/Time Anesthesia Start Date: 09/10/24 Anesthesia Start Time: 07:30 Stop Date/Time Anesthesia Stop Date: 09/10/24 Anesthesia Stop Time: 09:34 Coding CPT Codes CPT Codes: ANES/ANALG CS DELIVER ADD-ON - 56194 ([id number]) P2 - PATIENT W/MILD SYST DISEASE, QK - RESTORATION ECOLOGIST 2-4 CNCRNT ANES PROC, QX - ASSOCIATE PROFESSOR OF CHURCH MUSIC SVC W/ MD MED DIRECTION
--- NOTE | 2024-09-10 08:21 | W.PM.NB ---
Nerve Block Nerve Block Time Seen by Provider: 09:25 Date Seen: 09/10/24 Type of block requested by surgeon for post-operative analgesia: TAP Side: bilateral Time out performed: Yes Verification of patient name: Yes Verification of date of : Yes Site marking: site marked Name of person performing procedure: Chandan Cox Continuous monitoring Was continuous monitoring of O2 sat, B/P, medical collector, recorded every 15 minutes?: Yes Procedure Checklist: sterile prep, needles and gloves Ultrasound guided. Images saved: Yes Medications given in 5ml increments after negative aspiration: Marcaine %: 0.25 mL: 30 Needle gauge: 20 and Exparel mL: 10 Needle gauge: 20 Patient tolerated procedure well: Yes Additional comments: Injected in 5ml increments after negative aspiration Block Charges Block Charge (with Pro Fee): TAP Bilateral Use of Ultrasound Machine for Block: Yes- US Guidance/pain block
--- NOTE | 2024-09-10 09:02 | P.ANES_ITS ---
Anesthesia Charges Start Date/Time Anesthesia Start Date: 09/10/24 Anesthesia Start Time: 07:30 Stop Date/Time Anesthesia Stop Date: 09/10/24 Anesthesia Stop Time: 09:34 Coding CPT Codes CPT Codes: ANES/ANALG CS DELIVER ADD-ON - 32627 ([id number]) P2 - PATIENT W/MILD SYST DISEASE, QK - CARE TRANSITION COORDINATOR 2-4 CNCRNT ANES PROC, QX - PROJECT MANAGER FINANCE SVC W/ MD MED DIRECTION
--- NOTE | 2024-09-10 09:02 | W.ANESCHARGE ---
Anesthesia Charges Start Date/Time Anesthesia Start Date: 09/10/24 Anesthesia Start Time: 07:30 Stop Date/Time Anesthesia Stop Date: 09/10/24 Anesthesia Stop Time: 09:34 Coding CPT Codes CPT Codes: ANES/ANALG CS DELIVER ADD-ON - 71070 ([id number]) P2 - PATIENT W/MILD SYST DISEASE, QK - EVENTS TRAFFIC CONTROLLER 2-4 CNCRNT ANES PROC, QX - CABLE WEAVER SVC W/ MD MED DIRECTION
--- NOTE | 2024-09-10 09:05 | P.OBPRC_ITS ---
Procedure Date of procedure: 09/10/24 Pre-op diagnosis: 1. 39 1/7 weeks gestation 2. Suspected macrosomia 3. Failed induction 4. Undesired fertility Post-op diagnosis: same Procedure Done: Global Will [facility] bill your pro fee for this procedure?: Yes Blood Loss Measurement Type: QBL (816 mL) Bakri Used: No IV fluids (mL): 1,000 Urine Output (mL): 150 Urine Output Comment: Clear Surgeon: Reny Renee Anesthesia Type: General, Epidural (Inadequate analgesia) and TAP Block Findings: Live-born male , cephalic presentation, occiput transverse position, weight 4195 g or 10 lb 4 oz, Apgars 8 and 9 at 1 and 5 minutes respectively. Normal fallopian tubes ovaries and uterus. Procedure Name: 1. Primary low transverse section 2. Bilateral salpingectomies Procedure Description: After obtaining informed consent, the patient was taken to the operating room where epidural anesthesia was obtained and found to be inadequate. It was rebolused twice, and was still inadequate. Preparations were made for general anesthesia. She was prepared and draped in the normal sterile fashion in the dorsal supine position with a leftward tilt. General anesthesia was obtained without difficulty. When she was intubated, a Pfannenstiel skin incision was made with a scalpel. This incision was carried down to the underlying layer of fascia sharply. The fascia was incised in the midline and the incision extended laterally. The superior and inferior aspects of the fascial incision were grasped with Erica clamps, elevated and the underlying rectus muscles dissected off sharply. The rectus muscles were then in the midline. The Ronald O retractor was then placed into the incision. The lower uterine segment was then incised in a transverse fashion with the scalpel. There was some brisk bleeding from the edges of the hysterotomy incision. Upon entry into the uterus, clear amniotic fluid was noted. The uterine incision was extended laterally with blunt finger fractionation. The infant's head was delivered atraumatically, followed by the shoulders and then the remainder of the infant's body. The nose and mouth were suctioned with the bulb suction. The cord was doubly clamped and cut, and the was handed off the field to Peds PLANT PULLER for evaluation. Ring forceps were placed over the bleeding vessels for hemostasis along the edges of the hysterotomy incision. The placenta was delivered spontaneously with umbilical cord traction and fundal massage. There was also brisk bleeding from uterine at knee. Pitocin was administered with the IV fluids, tranexamic acid 1000 mg was administered intravenously, and Methergine 0.2 mg was administered IM. Vigorous uterine massage was performed. The uterus was cleared of all clots and debris. The uterine incision was reapproximated in a running locking fashion with a 0 chromic suture. A 2nd layer of the same suture was used to imbricate in horizontal fashion. The uterus was then exteriorized. Both fallopian tubes were identified and followed to their fimbrial ends. The left fallopian tube was elevated with two [place] clamps. The LigaSure device was used to dissect the left fallopian tube from proximal to distal from its cornual, broad ligament and ovarian attachments. The right fallopian tube was then elevated with two Susana clamps. The LigaSure device was used to dissect the right fallopian tube from distal to proximal from its cornual, broad ligament, and ovarian attachments. Both fallopian tubes were passed off the field. The gutters cleaned of clots. All instruments and retractors were removed. The anterior peritoneum was reapproximated in a running fashion with a 3-0 Vicryl suture. The subfascial tissues were carefully inspected and hemostasis assured. The fascia was reapproximated in a running fashion with a looped 0 Maxon suture. The subcutaneous tissues were copiously irrigated. Hemostasis was assured. The subcutaneous fat layer was reapproximated with interrupted sutures of 3-0 plain gut. The skin was closed in a subcuticular fashion with 4-0 Vicryl. Surgical glue and dressing were applied. A TAP block was administered by anesthesia. The patient tolerated the procedure well. Sponge, lap, needle, and instrument counts were reported as correct x2. The patient was taken to the recovery room, awake, and in stable condition. She did receive 500 mg IV azithromycin and 2 grams of IV Ancef preoperatively. Complications: None Pathology: specimen obtained, sent to pathology (bilateral fallopian tubes) Surgery Debrief Performed: Yes Condition: stable Disposition: PACU [place] total score - 1 minute: 8 total score - 5 minute: 9
[2024-09-10 10:49] LABS: Hematocrit 33.8 % (33.0-51.0); Hemoglobin* 11.4 gm/dL (12.0-16.0); Mean Corpuscular HGB Conc 34 gm/dL (32-36); Mean Corpuscular Hemoglobin 30 pg (26-34); Mean Corpuscular Volume 89 fL (80-100); Red Blood Count 3.78 m/uL (4.00-5.20); White Blood Count* 15.99 K/uL (4.50-11.00)
[2024-09-10 10:58] LABS: Slide Review Reflex No
[2024-09-10 11:08] LABS: Protein Creatinine Ratio Urine 0.22 (0-0.19)
[2024-09-10 11:08] LABS: Alanine Aminotransferase* 22 U/L (4-35); Aspartate Amino Transferase* 31 U/L (12-35); Blood Urea Nitrogen* 6 mg/dL (5-24); Creatinine* 0.5 mg/dL (0.5-1.5); Est. Creatinine Clearance* 136.90; Estimated Glomerular Filt Rate 126 ml/min
--- NOTE | 2024-09-10 12:46 | PM.ANPOST ---
Post Anesthesia Note Post Anesthesia Note Patient seen: Inpatient Respiratory Status: adequate Cardiovascular Status: adequate Mental Status: baseline Pain: adequate Temp: baseline Anesthetic awareness: no Complications: none Follow care: none
[2024-09-10] MEDS: ACETAMINOPHEN 500 MG TABLET 1000 MG PO ×2 (14:59→21:09)
[2024-09-10] MEDS: SODIUM CHLORIDE 0.9 % (FLUSH) 10 ML SYRINGE IVF (21:38)
[2024-09-11 00:30] VITALS: BP 114/68; PULSE 65; RESP 16; TEMP 36.9; O2SAT 95
[2024-09-11] MEDS: ACETAMINOPHEN 500 MG TABLET 1000 MG PO ×4 (03:37→23:05)
[2024-09-11 04:35] VITALS: BP 119/76; PULSE 77; RESP 16; TEMP 36.7; O2SAT 97
--- NOTE | 2024-09-11 04:55 | PC.NURSE ---
Pt has been up ambulating with RN present twice overnight. RN has encouraged to allow staff to remove Mena catheter throughout the night now that pt feels stable when ambulating to and from bathroom. RN informed pt that staff can help assist her to bathroom. Pt refused to have Mena catheter removed when educated/encouraged stating, I want to wait until my gets here this morning. She has been compliant with wearing SCDs throughout the night, removed for 1 hour during feeding time. Pt educated regarding importance of ambulation, especially after surgery in order to help prevent post-op complications. Pt verbalized understanding.
[2024-09-11 06:13] LABS: Hemoglobin* 9.1 gm/dL (12.0-16.0)
[2024-09-11 08:09] VITALS: BP 117/73; PULSE 70; RESP 20; TEMP 36.7; O2SAT 97
[2024-09-11] MEDS: DOCUSATE SODIUM 100 MG CAPSULE PO (09:29)
[2024-09-11 11:46] VITALS: BP 93/55; PULSE 82; RESP 18; O2SAT 98
[2024-09-11 12:27] LABS: Hemoglobin* 10.8 gm/dL (12.0-16.0)
--- NOTE | 2024-09-11 15:35 | PM.OBPNVD1 ---
OB - PN:Subj Subjective Date Seen: 09/11/24 Patient comments OB post-: no complaints, pain well controlled, tolerating diet and flatus present [place] status: and doing well [place] feeding status: exclusively Narrative: Jackie feels well. ?The pain is well controlled with current medications. ?She has no new complaints. ?She is breast feeding and reports things are going well. the patient has done well.? Vitals have been stable on Nifedipine that was started yesterday.? She has remained afebrile.? Has a good appetite, is tolerating a general diet. ?She still has a catheter in and plans to have that removed later this morning.? She is passing gas and has not had a bowel movement.? She is ambulating and denies any dizziness.? Has small amount of rubra lochia. will restart her oral iron supplement for Hgb 9.1. Johan rivera. OB - PN: Obj Exam Physical Exam: Vital signs: Temp Pulse Resp BP Pulse Ox O2 Del Method O2 Flow Rate 98.0 F 82 18 93/55 L 98 Room Air 2 09/11/24 08:09 09/11/24 11:46 09/11/24 11:46 09/11/24 11:46 09/11/24 11:46 09/11/24 11:46 09/10/24 09:55 Narrative: GENERAL APPEARANCE:? normal affect, alert, no distress? MOOD:? appropriate? CHEST:? clear to auscultation and percussion? HEART:? regular rate and rhythm? ABDOMEN:? soft, non-tender the uterine fundus is U/1 and is appropriate for the stage of recovery. Incision well approximated without drainage, erythema, or edema.? EXTREMITIES:? normal and no edema? OB - PN: Obj Data Labs Labs: Laboratory Results - last 24 hr 09/09/24 09/11/24 09/11/24 06:53 05:52 12:20 Hgb 9.1 L 10.8 L RPR Screen Non Reactive OB - PN: A/P Delivery Assessment and Plan (1) Lactating mother: Status: Acute (2) care following delivery: Status: Acute (3) S/P tubal ligation: Status: Acute (4) Gestational hypertension: Status: Acute Plan day: 1 Plan: routine care Comments: Anticipate discharge home tomorrow or the following day.
[2024-09-11 16:00] VITALS: BP 135/73; PULSE 78; RESP 16; O2SAT 95
[2024-09-11] MEDS: IBUPROFEN 600 MG TABLET PO (21:07)
[2024-09-11 23:06] VITALS: BP 110/63; PULSE 75; RESP 16; TEMP 36.8; O2SAT 97
[2024-09-12] MEDS: IBUPROFEN 600 MG TABLET PO ×2 (03:09→08:32)
[2024-09-12] MEDS: ACETAMINOPHEN 500 MG TABLET 1000 MG PO (05:12)
--- NOTE | 2024-09-12 07:12 | P.DS_ITS ---
DS: Providers Provider Date Seen: 09/12/24 Date of admission: 09/09/24 06:12 Primary care physician: Chris Rojas MD Admitting Clinician: Birgit Deshpande MD Attending Physician on discharge: Archana SIMMS Date of Discharge: 09/12/24 DS: Diagnosis Discharge Diagnosis (1) Gestational hypertension: Status: Acute (2) S/P tubal ligation: Status: Acute (3) care following delivery: Status: Acute Exam Narrative: Exam Narrative: GENERAL APPEARANCE:? normal affect, alert, no distress MOOD:? appropriate CHEST:? clear to auscultation HEART:? regular rate and rhythm ABDOMEN:? soft, non-tender the uterine fundus is 1 cm below Umbilicus, Midline and is appropriate for the stage of recovery. Umbilical hernia noted PERINEUM:? deferred EXTREMITIES:? normal and mild edema Incision: Clean, dry, intact. Open to air. No erythema or discharge. Const: Vital Signs, click to edit/add: Vital Signs - 24 hr 09/11/24 08:09 09/11/24 11:46 09/11/24 16:00 Temperature 98.0 F Pulse Rate [Pulse Oximeter] 70 82 78 Respiratory Rate 20 18 16 Blood Pressure [Ri ght Arm] 117/73 93/55 L 135/73 Pulse Oximetry 97 98 95 Oxygen Delivery Me thod Room Air Room Air Room Air 09/11/24 23:06 Temperature 98.3 F Pulse Rate [Pulse Oximeter] 75 Respiratory Rate 16 Blood Pressure [Ri ght Arm] 110/63 Pulse Oximetry 97 Oxygen Delivery Me thod Room Air OB - DS: Summary Hospital Course Hospital Course: Jackie is a 34 y.o. G 8 P 4044 who was admitted to [facility] for IOL.? She had a primary section with BTL for failure to progress that was uncomplicated 09/10/2024. She did end up needing general anesthesia. QBL 816. Hgb 10.8 this morning. The patient feels well.? The pain is well controlled with current medications.? She has no new complaints.? She is breast feeding and reports things are going well. the patient has done well after blood pressures came down. She received 1 dose of Nifedipine, but the rest of the doses were held due to normal BPs.? Vitals have been stable.? She has remained afebrile.? Has a good appetite, is tolerating a general diet.? She is voiding without difficulty.? She is passing gas and has not had a bowel movement.? She is ambulating and denies any dizziness.? Has scant amount of rubra lochia. She has had a bilateral tubal ligation for prevention.?She also has an umbilical hernia, which she has had since her last with no acute entrapment. ?? Problems: GHTN with normal to low BP since 09/10/24 at 1445 ?? plan:? Discharge home with baby.? Follow up in 1 week for BP and incision check and 6 weeks for visit.? , may see if needed? Hgb 10.8. ? GHTN diagnosed by elevated BP greater than 4 hours apart. Resolved s ryan 1445 09/10/2024. No meds needed for discharge, but cuff sent home for checks twice daily. BP check can be done at incision check at 1week. Labs WNL or stable with trending? Discharge home with BP cuff if does not already have one? Abdominal binder sent home for support and comfort of umbilical hernia Call for signs/symptoms of preeclampsia? Peripartum Data Infant delivery method: Primary C/S; Labored (due to failure to progress with bilateral salpingectomies) Laceration description: None Episiotomy description: None Procedures: Procedures Operation Date: 09/10/24 07:00 Actual Procedure Side Surgeon p Primary Low Transverse Section with bilateral salpingectomy Not Applicable Reny Renee MD Procedures: tubal ligation/salpingectomy complications: none (GHTN only briefly) Infant Gender: Male Infant Discharge Plan: Home Status at Discharge Overall status at discharge: patient is progressing back to baseline Time Spent with Patient Time attestation: Total time spent providing and/or coordinating discharge services: Time spent: Less than 30 minutes Discharge Plan Discharge Disposition: Home, Self-Care Date of Admission: 09/09/24 06:12 Attending Provider on Discharge: Tonja Riley Consulting Providers: Unique Villatoro Primary Care Provider: Chris Rojas Condition: Stable Anticipated Discharge Date/Time: 09/12/24 09:00 Discharge Medications: New acetaminophen 500 mg Tablet 1,000 mg PO Q6H PRN (Reason: Pain) Qty: 60 0RF docusate sodium 100 mg Capsule 100 mg PO 2XD PRN (Reason: Constipation) Qty: 60 0RF ibuprofen 600 mg Tablet 600 mg PO Q6H PRN (Reason: Pain) Qty: 60 0RF oxycodone 5 mg tablet 5 mg PO Q6H PRN (Reason: pain) Qty: 10 0RF Continued DHA 200 mg capsule 200 mg PO DAILY Discontinued ferrous sulfate [Feosol] 325 mg (65 mg iron) tablet 325 mg PO Q OTHER DAY Tums 300 mg (750 mg) tablet,chewable 300 mg PO TID PRN Discharge Orders: Discharge Order (Routine); Ordered 09/12/24 Ordered By: Tonja Riley Consulting provider completed their portion of the discharge: No Patient Education: OB High Blood Pressure DC, OB Over the Counter Medication Information, OB /Breast Feeding Additional Instructions: Discharge instructions were reviewed with the patient including signs and symptoms of infection and home going medications Lifting Restrictions: 20 pounds for 6 weeks No not submerge incision under water X 2 weeks? Nothing vaginally for 6 weeks: no tampons or intercourse Do not drive while taking narcotic pain medication(s) Off Work or School for 6 weeks Symptoms to report to doctor: * Bleeding that saturates more than one pad per hour * Passing clots larger than the size of a golf ball * Pain not relieved by prescribed medication * Fever above 100.4 degrees Fahrenheit * A foul vaginal odor * Difficulty in emotions, mood, and functions * Thoughts of hurting yourself and/or * Painful, reddened area in your breast * Any drainage, redness, or tenderness in your IV/epidural site * Severe headache that doesn't improve after taking medications * Changes in vision, including temporary loss of vision, blurred vision, and/or light sensitivity * Upper abdominal pain (usually under ribs on the right side) * Decrease in urination or painful, frequent urinating * Chest pain * Shortness of breath * Tenderness or pain with redness and/swelling in the calf(s) of your leg [facility] for a BP check?in one week with incision check with OB Call with BP greater than or equal to 140/90 6-week visit for an annual exam. consultation services are available to all mothers and babies for the first year after delivery.? To make an appointment, please call [phone]. Activity Level: No strenuous activity and Light activity Discharge Diet: Regular Follow Up Appointments: [facility] [Provider Group] Forms: MyHealth Info Instructions
[2024-09-12 08:15] VITALS: BP 115/73; PULSE 73; RESP 16; TEMP 36.8; O2SAT 98
[2024-09-12] MEDS: DOCUSATE SODIUM 100 MG CAPSULE PO (08:32)
== END 2024-09-12 10:29 | disposition home or self-care (01) | DRG 785 ==
PROVIDERS: Obstetrics & Gynecology; Admitting Provider Obstetrics & Gynecology; PCP Family Medicine; Referring Provider Obstetrics & Gynecology; Visit Provider Obstetrics & Gynecology
PROC: 10D00Z1 Extraction of Products of Conception, Low, Open Approach (ICD-10-PCS; CPT 59514; principal; 2024-09-10 07:00)
DX: O40.3XX0 Polyhydramnios, third trimester, not applicable or unspecified (principal); O36.63X0 Maternal care for excessive fetal growth, third trimester, not applicable or unspecified; O13.4 Gestational [pregnancy-induced] hypertension without significant proteinuria, complicating childbirth; G89.18 Other acute postprocedural pain; O61.0 Failed medical induction of labor; O61.1 Failed instrumental induction of labor; K42.9 Umbilical hernia without obstruction or gangrene; Z30.2 Encounter for sterilization; Z3A.39 39 weeks gestation of pregnancy; Z37.0 Single live birth
CPT/HCPCS: 01967; 01968; 36415; 59200; 64488; 76942; 82565; 82570; 84156; 84450; 84460; 84520; 85018; 85025; 85027; 86592; 86850; 86900; 86901; 94761; A4314; A9270; J0330; J0456; J0665; J0666; J0690; J1100; J1171; J1885; J2210; J2405; J2590; J2704; J2795; J3010; J7050; J7120